=== PATIENT | male | born 1975 | race African-American/Black ===

== ENCOUNTER 2020-08-22 14:17 | Emergency (ER) | payer MEDICAID, SELFPAY ==
--- NOTE | 2020-08-22 14:15 | RT.EKG_ITS ---
APPROVED REPORT Exam: Resting ECG Reason for Exam: Chest pain Patient Location: E HR:99 bpm ECG Measurements Heart Rate 99 AXIS LA 155 P 78 QRSd 84 QRS -73 QT 361 T 59 QTc 463 Conclusion Sinus rhythm...normal P axis, V-rate 60- 99 Left anterior fascicular block...axis(240,-40), init forces inf ST elev, probable normal early repol pattern...ST elevation, age<55. Appears c/w early repol. No STEMI. I have reviewed and interpreted ECG and agree with software generated interpretation.
[2020-08-22 14:27] VITALS: BP 132/98; PULSE 90; RESP 18; TEMP 36.6; O2SAT 100
--- NOTE | 2020-08-22 14:58 | ED.GENADUL_ITS ---
Discharge Plan Disposition Patient Disposition: HOME Condition: Stable Discharge Details Clinical Impression: Chest wall mass, Rib lesion, Other incomplete lesion at T2-T6 level of thoracic spinal cord, initial encounter Primary Care Provider: Unknown,Unknown ED Provider: Tracy Vuong Home Meds and New Rx's Prescriptions: New oxycodone 5 mg tablet 5 mg PO Q8H PRNQty: 12 RF: 0 Discharge Instructions Additional Instructions: You will need follow-up with primary care doctor, for care management will establish care with primary care, and very importantly follow-up Take ibuprofen and Tylenol as needed for discomfort Take oxycodone for pain uncontrolled You may take 2.5 to 5 mg, do not every 8 hours after taking this medication You will need very close follow-up with oncology, we will put you on the referral list You will also need close follow-up with likely neurosurgery in consultation, this can be established after review with oncology and primary care doctor Please return immediately should you have any new or worsening complaints including worsening shortness of breath, uncontrolled pain, fever, chills, changes in bowel or bladder, or with any new or worsening complaints Referrals: Jair Brooks MD [ CONSULTING PHYSICIAN] - Discharge Data Discharge Date/Time-TO BE ENTERED AT DEPARTURE: 08/22/20 19:45 Medical Decision Making <INDIRA Medina - Last Filed: 08/23/20 07:57> 45-year-old gentleman, current smoker, presents for 3-week history of right- sided chest pain and shortness of breath, nothing makes it worse or better. Differential includes but not excluded to ACS, pneumonia, musculoskeletal pain, PE, COPD, less likely dissection, etc. Will give full dose aspirin and obtain a cardiac work-up. Vital signs are unremarkable. Laboratory values are unremarkable except for hemoglobin 18.0 hematocrit 54.7 D-dimer 3977. Chest x-ray read by radiology as negative for acute pathology. Patient does not have a primary care provider, will place him on the care management list to help expedite outpatient care We will give 2 mg IV morphine obtain CTA of the chest to rule out PE Medical Records Medical records narrative: No records available Imaging Data Radiologic Study: Attestation: I personally reviewed and interpreted this imaging study as follows: Imaging: X-Ray Radiologist's impression: Exam(s) XR CHEST 2V PA LATERAL EXAM: XR CHEST 2V PA LATERAL CLINICAL HISTORY: L sided chest pain TECHNIQUE: 2D digital imaging was performed. COMPARISON: No exams were available for comparison FINDINGS: MEDIASTINUM: Normal. HEART: Normal. PULMONARY VASCULATURE: Normal. LUNGS: Emphysematous changes greatest at the right lung apex. Fibrotic changes. PLEURAL SPACE: No pleural effusion or pneumothorax. BONE:Right 2nd and 3rd rib deformities.. IMPRESSION: Severe emphysematous changes. Postsurgical changes. No acute abnormality. Lab Data Lab results reviewed: Yes I reviewed the patient's lab results. Labs: Laboratory Tests Range/Units 08/22/20 08/22/20 08/22/20 15:11 15:11 15:11 WBC (4.4-10.8) 10^3/uL 7.31 RBC (4.36-5.78) 10^6/uL 5.63 Hgb (13.5-17.5) g/dL 18.0 H Hct (40.0-50.0) % 54.7 H MCV (80-95) fL 97.2 H MCH (27.0-33.0) pg 32.0 MCHC (32.0-36.0) % 32.9 RDW (11.8-14.1) % 14.1 Plt Count (130-400) 10^3/uL 251 MPV (8.0-11.0) fL 10.5 Immature Gran % 0.3 Neutrophils % 53.6 Lymphocytes % 38.0 Monocytes % 6.6 Eosinophils % 1.0 Basophils % 0.5 Nucleated RBC % % 0 Absolute Neutrophils (1.2-6.7) 10^3/uL 3.92 Absolute Lymphocytes (1.2-3.4) 10^3/uL 2.78 Absolute Monocytes (0.1-0.8) 10^3/uL 0.48 Absolute Eosinophils (0.0-0.7) 10^3/uL 0.07 Absolute Basophils (0.0-0.2) 10^3/uL 0.04 PT (9.3-11.0) sec 10.8 INR (0.9-1.1) 1.1 APTT (21.0-27.5) sec 24.9 D-Dimer (<500) ng/mlFEU 3977 H Sodium (136-145) mmol/L 139 Potassium (3.5-5.1) mmol/L 3.8 Chloride (98-107) mmol/L 103 Carbon Dioxide (21.0-32.0) mmol/L 26.5 Anion Gap (3-11) mmol/L 9.5 BUN (7-18) mg/dL 9 Creatinine (0.70-1.30) mg/dL 1.0 Estimated GFR/1.73 m2 (mL/min/1.73m2) >= 60.00 Glucose (74-106) mg/dL 86 Calcium (8.5-10.1) mg/dL 9.4 Magnesium (1.8-2.4) mg/dL 2.0 Total Bilirubin (0.2-1.0) mg/dL 0.7 AST (15-37) U/L 17 ALT (16-63) U/L 18 Alkaline Phosphatase (46-116) U/L 104 Troponin I (<0.06) ng/mL < 0.05 Total Protein (6.4-8.2) g/dL 8.6 H Albumin (3.4-5.0) g/dL 3.5 ECG Data Attestation: I personally reviewed and interpreted this ECG (s) as follows: Interpretation: Please see official report by Dr. Butterfield. Sinus rhythm, ventricular rate of 99. No STEMI <INDIRA Cameron - Last Filed: 08/22/20 21:03> Care accepted in transfer from Lenard Ortiz PA-C, CTA was ordered D-dimer was elevated over 3000, patient with chest wall mass and lytic lesions to T2 and rib 7 on right I discussed the T2 lesion with Dr. Rivera, orthopedic as it does involve the vertebral body and does not appear to be overtly unstable at this time Patient is neurologically intact I discussed the case with Dr. Jones, oncology at [facility] and she will arrange follow-up with Dr. Perez, oncology at [facility] Brina Diaz was also made aware regarding this patient and need for urgent outpatient follow-up on Tuesday Patient was given opiate analgesia for pain control He has not hypoxic or tachypneic, he is feeling symptomatic improvement at time of discharge home, I discussed the need for urgent outpatient evaluation and patient understands the need to do so Had a long discussion with patient regarding likely diagnosis and answered all questions to the best of my ability Follow CT results reviewed with patient and radiology Patient has given low threshold to return with new or worsening complaints HPI <INDIRA Medina - Last Filed: 08/23/20 07:57> General Mode of arrival: ambulatory . Date/Time Provider Initiated Documentation: 08/22/20 14:21 . Limitations to Documentation: no limitations . Information obtained by: patient . HPI Narrative: This is a 45-year-old male, smokes approximately 1 pack of cigarettes, past medical history of bilateral spontaneous pneumothorax, presents to the ER reporting 3-week history of right sided chest pain, diffuse. Nothing makes the pain worse or better. Reports shortness of breath associated with chest pain for the past week or so. He denies recent illness or trauma. He reports a mild dry cough which is baseline. He denies fever, sputum, abdominal pain, nausea vomiting, pain or swelling in his leg, back pain. Patient states this does not feel like his pneumothorax. He denies recent illness or trauma. He has taken [id number] anti- inflammatory medication with little relief. Patient reports a family pathological history that includes heart disease although he cannot tell me exactly what his mother had. Related Data Home Medications Medication Instructions Recorded Confirmed oxycodone 5 mg PO Q8H PRN #12 tab 08/22/20 Previous Rx's Medication Instructions Recorded oxycodone 5 mg PO Q8H PRN #12 tab 08/22/20 Allergies Allergy/AdvReac Type Severity Reaction Status Date / Time No Known Allergies Allergy Unverified 08/22/20 14:31 General Stated Complaint: Chest Pain CAYDEN: 3 Review of Systems <INDIRA Medina - Last Filed: 08/23/20 07:57> Constitutional Constitutional: Denies fatigue, Denies fever(s), Denies headache(s) and Denies weakness ENT Ears, Nose, Mouth, and Throat: Denies headache(s) and Reports neck pain (Pain from my neck to my ribs) Cardiovascular Cardiovascular: Reports chest pain and Reports dyspnea Respiratory Respiratory: Reports cough and Reports dyspnea Gastrointestinal Gastrointestinal: Denies abdominal pain, Denies nausea and Denies vomiting Genitourinary Genitourinary: Denies dysuria Musculoskeletal Musculoskeletal: Denies back pain, Denies numbness and Denies tingling Integumentary/Breasts Skin/Breast: Denies rash Neurologic Neurologic: Denies headache(s), Denies numbness, Denies tingling and Denies weakness Endocrine Endocrine: Denies fatigue PFSH <INDIRA Medina - Last Filed: 08/23/20 07:57> Social History Smoking/Tobacco Use Status: Current every day Tobacco Type: cigarettes Smoking risk assessment performed?: Yes Alcohol Intake: current Alcohol Intake frequency: a few times a week Drug use: Daily Substance use type: marijuana Do you feel safe at home: Yes Do you feel safe in your relationship?: Yes Exam <INDIRA Medina - Last Filed: 08/23/20 07:57> Const General: cooperative, healthy appearing, comfortable and no acute distress Orientation: alert, awake and oriented x3 HENMT Head: normal to inspection, normocephalic and atraumatic Face and sinus: normal facial exam Mouth: moist mucous membranes Eyes General: appearance normal, both eyes and all related structures Conjunctivae: conjunctivae normal Neck Neck: normal visual inspection, full ROM, trachea midline and supple Resp Effort & Inspection: normal respiratory effort and able to speak in complete sentences Auscultation: clear to auscultation bilaterally Other: Previous chest tube scars Cardio Rate: regular rate Rhythm: regular rhythm GI Palpation: soft and nontender Auscultation: normal bowel sounds Back/Spine/Pelvis Back: No back tenderness Skin General skin exam: no rashes or lesions noted Neuro General: patient alert, patient awake, moves all extremities and no focal motor deficits Cognition: normal cognition Speech: speech normal Gait: normal gait Sensory Exam: no sensory deficits noted Extrem General: normal to inspection, full ROM and capillary refill normal Psych Appearance: grossly normal Mental Status: mental status grossly normal Course <INDIRA Medina - Last Filed: 08/23/20 07:57> Vital Signs Vital signs: Vital Signs Temperature 36.6 C 08/22/20 14:27 Pulse 90 08/22/20 14:27 Respiratory Rate 18 08/22/20 14:27 Blood Pressure 132/98 H 08/22/20 14:27 Pulse Oximetry 100 08/22/20 14:27 Temperature 36.6 C 08/22/20 14:27 Temperature Source Temporal Artery Scan 08/22/20 14:27 Pulse 90 08/22/20 14:27 Respiratory Rate 18 08/22/20 14:27 Respiratory Effort 08/22/20 14:32 Blood Pressure 132/98 H 08/22/20 14:27 Blood Pressure Position Sitting 08/22/20 14:27 Pulse Oximetry 100 08/22/20 14:27 Oxygen Delivery Method Room Air 08/22/20 14:27 Oxygen Flow Rate 0 08/22/20 14:27 Pain Level 7 08/22/20 14:27 Sign Out <INDIRA Medina - Last Filed: 08/23/20 07:57> Sign Out Data: Sign Out Comment: Right sided chest pain and shortness of breath for 3 weeks. Elevated D-dimer, awaiting CTA. 2 mg morphine given Last updated by Lenard Ortiz PA at 08/22/20 16:23
[2020-08-22] MEDS: Aspirin 81 MG CHEW 324 MG CH (14:59)
[2020-08-22 15:22] LABS: Abs Immature Grans 0.02 10^3/uL (0.0-0.06); Absolute Basophil Count 0.04 10^3/uL (0.0-0.2); Absolute Eosinophil Count 0.07 10^3/uL (0.0-0.7); Absolute Lymphocyte Count 2.78 10^3/uL (1.2-3.4); Absolute Monocyte Count 0.48 10^3/uL (0.1-0.8); Absolute Neutrophil Count 3.92 10^3/uL (1.2-6.7); Basophils % 0.5; HCT 54.7 % (40.0-50.0); Immature Grans % 0.3; MCHC 32.9 % (32.0-36.0); MCV 97.2 fL (80-95); MPV 10.5 fL (8.0-11.0); Monocytes % 6.6; Neutrophils % 53.6; Nucleated RBC 0 %; Platelet Count 251 10^3/uL (130-400); RBC 5.63 10^6/uL (4.36-5.78); RDW 14.1 % (11.8-14.1); RDW-SD 50.7 fL; WBC 7.31 10^3/uL (4.4-10.8)
[2020-08-22 15:31] VITALS: RESP 20
[2020-08-22 15:37] LABS: INR 1.1 (0.9-1.1); PTT Activated 24.9 sec (21.0-27.5); Prothrombin Time 10.8 sec (9.3-11.0)
--- NOTE | 2020-08-22 15:39 | DI.RAD_ITS ---
Exam(s) XR CHEST 2V PA LATERAL EXAM: XR CHEST 2V PA LATERAL CLINICAL HISTORY: L sided chest pain TECHNIQUE: 2D digital imaging was performed. COMPARISON: No exams were available for comparison FINDINGS: MEDIASTINUM: Normal. HEART: Normal. PULMONARY VASCULATURE: Normal. LUNGS: Emphysematous changes greatest at the right lung apex. Fibrotic changes. PLEURAL SPACE: No pleural effusion or pneumothorax. BONE:Right 2nd and 3rd rib deformities.. IMPRESSION: Severe emphysematous changes. Postsurgical changes. No acute abnormality. DATA REPOSITORY: RADIATION DOSE DELIVERED:
[2020-08-22 15:40] LABS: ALT 18 U/L (16-63); AST 17 U/L (15-37); Albumin 3.5 g/dL (3.4-5.0); Alkaline Phosphatase 104 U/L (46-116); Anion Gap 9.5 mmol/L (3-11); BUN 9 mg/dL (7-18); Bilirubin, Total 0.7 mg/dL (0.2-1.0); CO2 26.5 mmol/L (21.0-32.0); Calcium 9.4 mg/dL (8.5-10.1); Chloride 103 mmol/L (98-107); Glucose 86 mg/dL (74-106); Potassium 3.8 mmol/L (3.5-5.1); Sodium 139 mmol/L (136-145); Total Protein 8.6 g/dL (6.4-8.2); Troponin I < 0.05 ng/mL (<0.06)
--- NOTE | 2020-08-22 16:00 | DI.CT_ITS ---
Exam(s) CT CHEST PE CTA EXAM: CT CHEST PE CTA CLINICAL HISTORY: chest pain with elevated ddimer, right. TECHNIQUE: Imaging Protocol: CT angiography of the chest was performed using pulmonary embolus yeimi col. Multi planar reconstructions were performed. CONTRAST MATERIAL: Intravenous: Omnipaque 350 Contrast volume: 100 cc COMPARISON: CR XR CHEST 2V PA LATERAL from 08/22/2020 CR XR CHEST 2V PA LATERAL from 08/22/2020 FINDINGS: CHEST: PULMONARY ARTERIES: There are no intraluminal filling defects to suggest acute pulmonary emboli. LUNGS: There are severe emphysematous changes in both lung quesada including multiple confluent mostly medial located bullae bilaterally. There are mild benign-appearing increased markings in the latera l aspect left lower lobe. No layering pleural effusions The main finding here is significant permeated of lytic involvement of the right 3rd rib, mostly post eriorly including a pathologic fracture in as at the level of the costotransverse junction, without o bvious lytic involvement of the ipsilateral transverse process of the vertebral body. There is signi ficant adjacent pleural thickening over the right upper lobe in this region, this extending anteriorl y and there is a large destructive partially solid partially fluid density mass in this region extend ing from the paraspinal region out and measuring approximately 9 cm wide by 4.5 cm AP by 5 cm cranioc audal. There is also contiguous significant lytic destruction of the right side and middle aspect of the T2 vertebral body, and right transverse process of T2. Also partial involvement of the medial a spect of the right 2nd rib. Also some lytic involvement of the superior right side of the T3 vertebr al body MEDIASTINUM: There is no hilar nor mediastinal adenopathy. Visualized thyroid unremarkable. CARDIAC: Heart size is upper normal. There is no pericardial effusion.Caliber of the thoracic aorta is within normal limits. There is no significant shift of the interventricular septum. PARTIALLY VISUALIZED UPPERMOST ABDOMEN: No obvious findings OSSEOUS: No significant osseous lesions.. IMPRESSION: 1. There is a large right-sided posterior chest wall mass measuring approximately 9 cm by 5 cm x 5 cm with lytic destruction the right side of the T2 vertebral body, right transverse process, and adjace nt right ribs as described above. Main considerations are for malignancy versus infection. 2. No evidence of pulmonary embolism, as per request 3. Severe emphysematous lung findings. This study 1st read by [facility]. RADIATION DOSE DELIVERED: 332.41mGy.cm Total DLP DATA REPOSITORY: All CT scans at this facility are submitted to the National Radiology Data Registry (NRDR) Dose Index Registry (DIR) with the [employer] (ACR). RADIATION OPTIMIZATION: All CT scans at this facility use at least one of these dose optimization te chniques: automated exposure control; mA and/or kV adjustment per patient size (includes targeted exa ms where dose is matched to clinical indication); or iterative reconstruction.
[2020-08-22 16:01] LABS: D-Dimer 3977 ng/mlFEU (<500)
[2020-08-22] MEDS: Omnipaque 350 MG/ML 100 ML BTL IJ (16:40)
[2020-08-22] MEDS: Normal Saline - Diluent 50 ML VIAL IV (16:40)
[2020-08-22] MEDS: Normal Saline Flush 10 ML SYR IVP ×3 (16:41→18:49)
--- NOTE | 2020-08-22 17:08 | DI.VRAD_ITS ---
PROCEDURE INFORMATION: Exam: CTA Chest With Contrast Exam date and time: 08/22/2020 4:08 PM Age: 45 years old Clinical indication: Pain; Right-sided; Patient HX: Elevated d-dimer. TECHNIQUE: Imaging protocol: Computed tomographic angiography of the chest with contrast. 3D rendering (Not supervised by radiologist): MIP and/or 3D reconstructed images were created by the technologist. Total images: 1886 Radiation optimization: All CT scans at this facility use at least one of these dose optimization techniques: automated exposure control; mA and/or kV adjustment per patient size (includes targeted exams where dose is matched to clinical indication); or iterative reconstruction. Contrast material: OMNIPAQUE 350; Contrast volume: 100 ml; Contrast route: INTRAVENOUS (IV); COMPARISON: CR XR CHEST 2V PA LATERAL 08/22/2020 3:25 PM FINDINGS: Pulmonary arteries: No main, lobar or segmental pulmonary arterial embolism. Aorta: Unremarkable. No aortic aneurysm. No aortic dissection. Lungs: There is severe centrilobular and paraseptal emphysema. Pleural spaces: Unremarkable. No pneumothorax. No pleural effusion. Heart: Unremarkable. No cardiomegaly. No pericardial effusion. Lymph nodes: Unremarkable. No enlarged lymph nodes. Bones/joints: There is lytic destruction of the right T2 vertebral body, transverse process and rib. There is lytic destruction of the right posterior 3rd rib with soft tissue component. Soft tissues: There is a heterogeneous 7.8 x 7.3 cm posterior chest wall mass. IMPRESSION: 1. Severe destruction of the right 3rd rib with soft tissue component . Right T2 vertebral body, transverse process and 2nd rib lytic lesions . Differential considerations include metastasis, infection and primary malignancy. 2. No pulmonary arterial embolism. 3. Severe emphysema. Dictated and Authenticated by: Yanet Villafana MD. Ordering:LACI Molina MD
[2020-08-22 19:04] VITALS: RESP 20
--- NOTE | 2020-08-25 09:32 | NUR.NOTE ---
Nursing Note: Patient called asking about his referral to oncology. I spoke with INDIRA Cameron and Brina Perez, Care Management. Tracy will call and talk with patient, and Brina will follow up on PCP and oncology follow up. Lin Hoffman
--- NOTE | 2020-08-25 10:43 | PDOC.ERCMPRO ---
- If Service Date Differs Date of service: 08/25/20 Time of Service: 10:43 Care Management Progress Note Myke is seen in the ED on 08/22/20 for right sided chest pain and shortness of breath. At the request of ED provider, ANOOP coordinates a referral to Demetrice Dorsey MD, [facility], on-call provider, to assist Myke in obtaining a follow up appointment and in establishing care with a PCP. ANOOP also coordinates a referral to [facility] [place] [facility] for evaluation and treatment of a chest wall mass with rib lesions.
== END 2020-08-22 19:45 | disposition home or self-care (01) ==
PROVIDERS: Physician Assistant; Emergency Provider Physician Assistant
DX: R22.2 Localized swelling, mass and lump, trunk (principal); M89.8X8 Other specified disorders of bone, other site; G95.89 Other specified diseases of spinal cord
CPT/HCPCS: 71275; 80053; 93005; 96374; 96376; 99285; 71046; 83735; 84484; 85025; 85379; 85610; 85730; 93010; 99284; J3490

== ENCOUNTER 2020-10-07 09:21 | Outpatient (CLI) | payer MEDICAID, SELFPAY ==
--- NOTE | 2020-10-07 | DI.US_ITS ---
Exam(s) US LOWER EXTREMITY VENOUS LT EXAM: US LOWER EXTREMITY VENOUS LT CLINICAL HISTORY: LT LEG EDEMA R60.0 METASTATIC RT LUNG CARCINOMA C34.91 TECHNIQUE: Left lower extremity venous ultrasound performed using grayscale, color-flow, and spectra l Doppler analysis. COMPARISON: No exams were available for comparison FINDINGS: The left common femoral, femoral and popliteal veins demonstrate normal compressibility, augmentation , and color Doppler. The posterior tibial veins are patent. There is occlusive thrombus seen in the paired peroneal veins. It measures 35 cm in length. The saphenofemoral junction is unremarkable. T here is no evidence of a Owens cyst. The soft tissues are unremarkable. IMPRESSION: 1. There is occlusive thrombus seen in the paired peroneal veins measuring 35 cm in length. DATA REPOSITORY:
--- OUTSIDE RECORDS SUMMARY | 2020-10-07 09:24 | XMS_ITS | Continuity of Care Document ---
:1975 Author Organization [facility] Address [address] [place] [address] Support Name Relationship Address Phone Shaun Barton Emergency Provider Dept. of Emergency Medic ine [facility], [address] [place] [address] [facility] Primary Care Provider [address] [place] [address] [phone] [place] [id number] Allergies, Adverse Reactions, Alerts No known allergies. Medications No medication information available. Problem List Active Problems Medical Problem Onset Date Status Chest pain Active Procedures Procedure Date Status XR chest pa & lat May 13, 2020 completed Relevant Diagnostic Tests and/or Laboratory Data Laboratory Results Test Date/Time Result Interp. Ref. Range Result Comment White Blood Count May 13, 2020 6.0 10^3/uL 4.5-10.5 12:06pm Red Blood Count May 13, 2020 4.68 10^6uL 4.20-5.40 12:06pm Hemoglobin May 13, 2020 15.1 g/dL 13.3-16.3 12:06pm Hematocrit May 13, 2020 45.9 % 40.0-49.0 12:06pm Mean Corpuscular Volume May 13, 2020 98.2 fL 80.0-100. 0 12:06pm Mean Corpuscular May 13, 2020 32.2 pg High 23.0-31.0 Hemoglobin 12:06pm Mean Corpuscular May 13, 2020 32.8 g/dL 32.0-36.0 Hemoglobin Concent 12:06pm Platelet Count May 13, 2020 219 10^3/uL 150-400 12:06pm RDW Coefficient of May 13, 2020 14.7 % 12.5-15.5 Variation 12:06pm Mean Platelet Volume May 13, 2020 9.0 fL 7.0-10.5 12:06pm Neutrophils (%) (Auto) May 13, 2020 50 % 44-74 12:06pm Lymphocytes (%) (Auto) May 13, 2020 40 % 16-46 12:06pm Monocytes (%) (Auto) May 13, 2020 7 % 5-12 12:06pm Eosinophils (%) (Auto) May 13, 2020 3 % 0-8 12:06pm Basophils (%) (Auto) May 13, 2020 0 % 0-2 12:06pm Absolute Neutrophils May 13, 2020 3.0 10^3/uL 1.5-7.8 (auto) 12:06pm Absolute Lymphocytes May 13, 2020 2.4 10^3/uL 0.85-4.1 (auto) 12:06pm Absolute Monocytes May 13, 2020 0.4 10^3/uL 0.2-1.1 (auto) 12:06pm Absolute Eosinophils May 13, 2020 0.2 10^3/uL 0.05-0.6 (auto) 12:06pm Absolute Basophils May 13, 2020 0.0 10^3/uL 0-0.2 (auto) 12:06pm Sodium Level May 13, 2020 142 mmol/L 136-145 12:06pm Potassium Level May 13, 2020 4.3 mmol/L 3.5-5.1 12:06pm Chloride Level May 13, 2020 105 mmol/L 98-107 12:06pm Carbon Dioxide Level May 13, 2020 28 mmol/L 22-29 12:06pm Anion Gap May 13, 2020 9 mmol/L 6-18 12:06pm Blood Urea Nitrogen May 13, 2020 11 mg/dL 6-20 12:06pm Creatinine May 13, 2020 0.9 mg/dL 0.7-1.2 12:06pm Glomerular Filtration May 13, 2020 > 60.00 60- Multiply x 1.212 if of descent Rate Calc 12:06pm mL/min normal kidney function >60 mL/min results normal ized to 1.73 m sq body surface area. Glucose Level May 13, 2020 101 mg/dL 74-109 12:06pm Calcium Level May 13, 2020 9.5 mg/dL 8.6-10.4 12:06pm Phosphorus Level May 13, 2020 2.8 mg/dL 2.5-4.5 12:06pm Total Bilirubin May 13, 2020 0.3 mg/dL Low 0.4-1.2 12:06pm Aspartate Amino Transf May 13, 2020 16 IU/L 10-50 (AST/SGOT) 12:06pm Alanine May 13, 2020 11 U/L 5-41 Aminotransferase 12:06pm (ALT/SGPT) Alkaline Phosphatase May 13, 2020 92 IU/L 40-129 12:06pm Total Protein May 13, 2020 7.1 g/dL 6.6-8.7 12:06pm Albumin May 13, 2020 4.0 g/dL 3.5-5.2 12:06pm Magnesium Level May 13, 2020 1.7 mg/dL 1.6-2.6 12:06pm Troponin T May 13, 2020 < 0.01 ng/mL 0.0-0.01 12:06pm Advance Directives Advance Directive Response Recorded Date/Time Date Patient Queried 05/13/20 May 13, 2020 1:00p m Does the patient have a Healthcare Proxy? No May 13, 2020 1:00pm Healthcare Proxy Status Not Interested May 13, 2020 1: 00pm Chief Complaint and Reason for Visit Encounter Admit Date Chief Complaint Reason for Visit Departed Emergency May 13, 2020 11:26am chest pain Hospital Discharge Instructions Additional Discharge Instructions Your EKG and labs we re reassuring Your chest xray showed signs from prior surgery Please follow up with Thorac ic surgery because of your pain and prior procedure: [phone] You should also follow up [facility] Cardiology- information provided Take over the counter pain m edication as packaging directs to help with your discomfort Return to the ED for any new , worsening, or concerning symptoms No Instructions/Education Provided Encounters Encounter Facility Location Admit/Visit Discharge/Departure Atte nding Date Date Provider Departed [facility] May 13, 2020 May 13, 2020 2:44pm [facility] 11:26am [facility] Department Functional Status Query Response Date Recorded Comment Patient Orientation Oriented x3 May 13, 2020 1:04pm Awake Alert Immunizations No known immunizations. Plan of Care No Known Plan of Care Information Social History Query Response Date Recorded Comment Does the patient use drugs? No May 13, 2020 1:04pm Is pt a current\former smoker or user of Yes, former May 1:04pm tobacco products? On a typical day when you drink, how many 2 May 13, 2020 1:04pm drinks do you have On average how many days per week do you 3 May 1:04pm drink alcohol? Query Response Start Date Stop Date Is pt a current\former smoker or user of tobacco Yes, former products? Vital Signs Vital Reading Result Reference Range Collection Date/ Time Height 6 ft 4 in May 13, 2020 11 :32am Weight 81.4 kg May 13, 2020 11 :32am Temperature 97.3 F 97.5 F-99.3 F May 13, 2020 11 :32am Pulse 66 BPM 60-90 May 13, 2020 2: 42pm Respiration 16 RPM 12-20 May 13, 2020 2: 42pm Pulse Oximetry 100 % 95-100 May 13, 2020 2: 42pm Blood Pressure Systolic 127 100-160 May 13, 2020 2:42pm Blood Pressure Diastolic 88 60-90 May 2:42pm
== END 2020-10-07 09:41 ==
PROVIDERS: Visit Provider Family Medicine
DX: C34.91 Malignant neoplasm of unspecified part of right bronchus or lung (principal); R60.0 Localized edema; I82.890 Acute embolism and thrombosis of other specified veins
CPT/HCPCS: 93971

== ENCOUNTER 2020-10-12 23:30 | Observation (INO) | payer MEDICAID, SELFPAY ==
[2020-10-12 23:29] VITALS: BP 125/86; PULSE 90; RESP 20; TEMP 36.4; O2SAT 99
--- NOTE | 2020-10-12 23:30 | RT.EKG_ITS ---
APPROVED REPORT Exam: Resting ECG Reason for Exam: chest pain Patient Location: E HR:90 bpm ECG Measurements Heart Rate 90 AXIS KS 145 P 73 QRSd 93 QRS -74 QT 382 T 60 QTc 466 Conclusion Sinus rhythm...normal P axis, V-rate 60- 99 Left anterior fascicular block...axis(240,-40), init forces inf Physician: Rate 90, sinus rhythm, no significant ST elevations or depressions. No evidence of STEMI. No large Q waves.
--- NOTE | 2020-10-12 23:37 | DI.CT_ITS ---
Exam(s) CT CHEST PE ABD PELVIS W EXAM: CT CHEST PE ABD PELVIS W CLINICAL HISTORY: right chest pain, known mass, has dvt's. TECHNIQUE: Imaging Protocol: Axial computed tomography images with coronal and sagittal reformatted images were created and reviewed CONTRAST MATERIAL: Intravenous: Omnipaque 350 Contrast volume:100 ml Oral: no COMPARISON: CT CT CHEST PE CTA from 08/22/2020 CR XR CHEST 2V PA LATERAL from 08/22/[address] CHEST PE CTA from 08/22/2020 FINDINGS: CHEST: Pulmonary arteries: Well opacified. No emboli seen. Mediastinum and Christen: Right hilar adenopathy, increasing when compared with the previous exam. Pulmonary parenchyma: Large right apical mass, mainly low-density with some vascularity. It measures at least 10 cm in size transversely. The mass extends inferiorly along the ribs causing invasion jv th anteriorly and posteriorly. Inferior extension approximately 25 cm. There is near complete destr uction of the right 3rd rib so significant destruction of the 4th rib. There is also a destruction o f the vertebral bodies on the right side at T2 and T3. There is now destruction of proximal portion of the left 8th rib. No longer lying emphysematous changes greater at the apices. Pleura: No effusion or pneumothorax. Aorta: Thoracic portion non-dilated. No dissection. Heart: Normal size. No pericardial effusion. ABDOMEN: Liver: Normal density. Tiny hypodensities, too small to characterize. Gallbladder and biliary tract: Gallbladder unremarkable. No radiodense calculus. Mild biliary dilat ation likely secondary to pancreatic mass. Pancreas: Mass in the head of the pancreas measuring 3.5 cm. No abnormal calcifications or inflammat ory process. Spleen: Normal. Kidneys: Normal size, contour and axis. No radiodense stones or obstructive uropathy. Multiple bilate ral low-density area is which have a somewhat irregular appearance, not typical for simple cysts. A small portion of the superior poles of the kidneys were included on the previous exam. Adrenal glands: Enlargement of the left adrenal gland. Aorta: Abdominal portion non-dilated. Lymph nodes: Within normal limits. Soft tissues: Unremarkable. PELVIS: Bladder: Symmetric distention, no gross wall thickening. Bowel: Increased stool. No obstruction or bowel wall thickening. Peritoneal cavity: No ascites, collection or mesenteric inflammatory response. Bones: Lucencies inferomedially in both billy. Reproductive organs: Within normal limits. IMPRESSION: Chest: Interval increase of large right apical tumor, with invasion into the right side of the T2 and T3 vertebral bodies as well as destruction of the 3rd rib invasion of the 4th rib. New lytic lesion of the proximal left 8th rib. No pulmonary emboli. Abdomen and pelvis: 3.5 centimeter pancreatic mass. Bilateral renal masses. Enlargement of the left adrenal gland. Questionable lucencies of the billy. RADIATION DOSE DELIVERED: 1,052.03mGy.cm Total DLP 1,052.03mGy.cm Total DLP DATA REPOSITORY: All CT scans at this facility are submitted to the National Radiology Data Registry (NRDR) Dose Index Registry (DIR) with the [employer] (ACR). RADIATION OPTIMIZATION: All CT scans at this facility use at least one of these dose optimization te chniques: automated exposure control; mA and/or kV adjustment per patient size (includes targeted exa ms where dose is matched to clinical indication); or iterative reconstruction.
[2020-10-12 23:38] VITALS: PULSE 92; RESP 39; O2SAT 100
[2020-10-12 23:40] VITALS: PULSE 90; RESP 34; O2SAT 100
--- NOTE | 2020-10-12 23:44 | W.ED.GENAD ---
Discharge Plan Disposition Patient Disposition: [facility] INPATIENT Condition: Stable Discharge Details Clinical Impression: Chest wall mass, Metastatic disease, Chest pain Primary Care Provider: Unknown,Unknown ED Provider: Erick Nicholas Home Meds and New Rx's Prescriptions: No Action oxycodone 5 mg tablet 5 mg PO Q8H PRNQty: 12 RF: 0 oxycodone 5 mg capsule 5 mg PO Q8H PRNQty: 14 RF: 0 enoxaparin [Lovenox] 80 mg/0.8 mL Syringe 80 mg subcut BID RF: 0 oxycodone-acetaminophen [Percocet] 10-325 mg Tablet 1 tab PO Q6H PRNRF: 0 morphine 60 mg Tablet Extended Release 60 mg PO Q6H PRN PRN (Reason: Pain) RF: 0 Medical Decision Making 45-year-old -[place] male with a recent diagnosis of a right chest mass just 2 months ago, who has blood clots in his lower extremities, takes daily Lovenox twice daily, presents today for new right-sided chest and abdominal pain. For last 2 to 3 days he has noticed increasing worsening pain in the right side, however it is notably increased over the last 24 hours. It hurts to breathe or move. He also admits to right-sided abdominal pain. No pain on the left. Admits to shortness of breath secondary to the pain, rather than actual shortness of breath. He denies any cough or fever. He denies missing any doses of his Lovenox. No other complaints at this time. He has not yet started chemotherapy or radiation. Exam demonstrates exquisite superficial tenderness on palpation of any aspect of the right chest, crackles diffusely on the right and left. Vital signs stable. Oxygenation good. Bedside ultrasound demonstrates reduced lung sliding bilaterally secondary to splinting. Difficult to differentiate evidence of clear pneumothorax. No evidence of tension pneumothorax clinically at this time. Suspect pain secondary to mass, but differential definitely includes potential pulmonary embolism, or rib pain secondary to mass. ACS less likely. We will treat the patient's pain, evaluate for life-threatening etiologies, monitor closely and reassess. 1:02 AM Patient's laboratory work-up is returned and is stable. EKG stable, troponin normal, proBNP shows no elevation, and no suggestion of heart strain. Lipase normal. No white count bandemia or left shift. Potassium minimally low at 3.3. Of a social note, the patient has been staying at a hotel, and has been in severe pain. Because of this pain he is actually missed his appointment at [facility] for his initial assessment that was 3 days ago. He has not had any other appointments at [facility] yet to start chemotherapy or for surgical management. Patient remains in significant pain, but it is slightly better manage when receiving notable amounts of Dilaudid. CT scan demonstrates a notable Pancoast tumor that is enlarging compared to prior exam. It has notable replacement of entire right third rib, and involvement of the right second and fourth ribs. He also invades into T2 and T3 vertebra, with spinal canal stenosis. Patient also has evidence of a pancreatic mass suspicious for malignancy, adrenal nodules, and kidney lesion and evidence of metastatic disease throughout. I do feel that the patient would benefit from admission for pain control. The patient course appears notably advanced and concerning. The patient does have a 2-year-old daughter locally here in [facility] and states she is his driving force. 1:32 AM Discussed the case with Dr. Vincent, he agrees with the assessment and plan. Patient will be admitted for pain management. Repeat exam continues to show no evidence of focal neurologic deficit, no evidence of acute clinical cord compression. I also discussed the case with the patient's significant other over the phone at his request. I did make clear to the patient that with the notable metastatic lesions that this will be a challenge to be, and may certainly also be potentially unfeasible. Patient understands. I have extensively reviewed the treatment plan with the patient. I have addressed all patient concerns at this time. I have also discussed the plan with the admitting physician and they agree with the current assessment and plan and have agreed to assume responsibility for the patient. All parties demonstrate verbal understanding and agreement with our assessment and plan at this time. The documentation in this chart was dictated using Smart[employer] dictation software. Please excuse any dictation errors. EKG 23: 48 Rate 90, sinus rhythm, no significant ST elevations or depressions. No evidence of STEMI. No large Q waves. FINDINGS: Pulmonary arteries: Normal. No pulmonary emboli. Aorta: Unremarkable. No aortic aneurysm. No aortic dissection. Lungs: A large mass is again noted at the right thoracic apex posteriorly. Tumor replaces and expands the entire right 3rd rib, extending into the anterior chest. Tumor involves the right 2nd and 4th ribs, and also invades into the T2 and T3 vertebrae. The principal posterior tumor is approximately 10 cm diameter, however with extension along the entire 3rd rib the tumor extension is closer to 25 cm. Moderate centrilobular and paraseptal emphysema is noted. Negative for significant consolidation or ground-glass opacity. Pleural spaces: Unremarkable. No pneumothorax. No pleural effusion. Heart: Unremarkable. No cardiomegaly. No pericardial effusion. Lymph nodes: Right hilar lymphadenopathy has enlarged from previous. Bones/joints: Negative for compression fracture. Negative for anterior or posterior translation of vertebral bodies. Expansile destructive tumor is noted at the posterior left 8th rib, 2.1 x 3.5 x 3.1 cm. This site neoplasm is new from August 2020. Tumor encroachment and severe narrowing of the spinal canal suspected at the T2 and T3 levels. Soft tissues: Large right chest wall/rib/lung mass again noted. Moderate gynecomastia noted. IMPRESSION: 1. Negative for pulmonary embolism. 2. Negative for aortic dissection. 3. Negative for superior vena cava occlusion. 4. Limited evaluation of the right subclavian vein. 5. Enlargement of a large right Pancoast tumor. 6. Tumor invasion of the spinal canal at T2 and T3, with severe spinal canal stenosis suspected. 7. New expansile tumor at the posterior left 8th rib. 8. Enlargement of right hilar lymph nodes. FINDINGS: Liver: Normal liver attenuation. Negative for suspicious liver mass. Gallbladder and bile ducts: Contracted gallbladder. Pancreas: Irregular low-attenuation mass noted at the pancreatic head, 3.4 cm. Negative for inflammatory changes around the pancreas. Spleen: Normal. No splenomegaly. Adrenal glands: Left adrenal nodule 1.7 cm. Normal right adrenal. Kidneys and ureters: Multiple low-attenuation lesions are noted in the kidneys. Lesions at the superior poles are new from the August 2020 exam. A lesion at the left superior pole measures 1.4 cm. Kidneys are negative for hydronephrosis. Ureters are not dilated. Stomach and bowel: Stomach is unremarkable. Small bowel is not dilated. Negative for inflammatory changes around the colon. Appendix: Normal appendix. Intraperitoneal space: Negative for free fluid or free air. Negative for abscess. Vasculature: Abdominal aorta is negative for aneurysm. There is no significant vascular calcification. Lymph nodes: Unremarkable. No enlarged lymph nodes. Urinary bladder: Unremarkable as visualized. Reproductive: Unremarkable as visualized. Bones/joints: Negative for compression fracture in the lumbar spine. Negative for destructive or erosive lesions in the lumbar spine, sacrum, or pelvis. Small lucent lesions are noted in the iliac crest bilaterally. Soft tissues: Negative for abdominal wall hernia or fluid collection. Foci of air are noted in the subcutaneous tissues, left of the umbilicus. Question medication administration at this site. IMPRESSION: 1. Negative for bowel obstruction or acute inflammatory abnormality. 2. Pancreatic mass suspicious for malignancy. 3. Left adrenal nodule suspicious for malignancy. 4. New bilateral kidney lesions suspicious for metastatic disease. 5. Small lucent lesions in the iliac crests, indeterminate for metastatic disease. Thank you for allowing us to participate in the care of your patient. Dictated and Authenticated by: Taras Mar MD 10/13/2020 1:03 AM Eastern Time ([place] & [place]) HPI General Date/Time Provider Initiated Documentation: 10/12/20 23:43. HPI Narrative: 45-year-old -Bul[place] male with a recent diagnosis of a right chest mass just 2 months ago, who has blood clots in his lower extremities, takes daily Lovenox twice daily, presents today for new right-sided chest and abdominal pain. For last 2 to 3 days he has noticed increasing worsening pain in the right side, however it is notably increased over the last 24 hours. It hurts to breathe or move. He also admits to right-sided abdominal pain. No pain on the left. Admits to shortness of breath secondary to the pain, rather than actual shortness of breath. He denies any cough or fever. He denies missing any doses of his Lovenox. No other complaints at this time. He has not yet started chemotherapy or radiation. Related Data Home Medications Medication Instructions Recorded Confirmed oxycodone 5 mg PO Q8H PRN #12 tab 08/22/20 oxycodone 5 mg PO Q8H PRN #14 cap 08/25/20 enoxaparin [Lovenox] 80 mg SUBCUT BID 10/12/20 10/12/20 morphine 60 mg PO Q6H PRN PRN 10/12/20 10/12/20 oxycodone-acetaminophen [Percocet] 1 tab PO Q6H PRN 10/12/20 10/12/20 Previous Rx's Medication Instructions Recorded oxycodone 5 mg PO Q8H PRN #12 tab 08/22/20 oxycodone 5 mg PO Q8H PRN #14 cap 08/25/20 Allergies Allergy/AdvReac Type Severity Reaction Status Date / Time No Known Allergies Allergy Unverified 10/12/20 23:37 General Stated Complaint: Abd Prob CAYDEN: 2 Review of Systems All systems reviewed & are unremarkable except as noted in HPI and below PFSH Social History Smoking/Tobacco Use Status: Former Tobacco Use Quit Date: 10/10/20 Smoking risk assessment performed?: Yes Alcohol Intake: former Drug use: Daily Substance use type: marijuana Do you feel safe at home: Yes Do you feel safe in your relationship?: Yes Exam Narrative Exam Narrative: 1.Const: Well-nourished, Well-developed, appearing stated age 2.Eyes: PERRL, no conjunctival injection, and symmetrical lids. 3.ENT: Atraumatic external nose and ears. Moist MM. Neck: Symmetric, trachea midline, No thyromegaly. 4.CVS: +S1/S2, No murmurs or gallops. Peripheral pulses 2+ and equal in all extremities. Brisk capillary refill in all extremities. 5.RESP: Equal breath sounds bilaterally, no wheezes. Minimal scattered crackles. Exquisite pain out of proportion with light touch to the skin on the right side of the chest. Trachea is midline, good bilateral chest rise. 6.GI: Soft, voluntary guarding, tenderness in the right upper and right mid abdominal quadrants. No pain in the left abdomen. No genital or testicular tenderness. 7.MSK: Normocephalic/Atraumatic, Extremities w/o deformity or ttp No cyanosis or clubbing, Normal movement of all extremities. No significant pitting edema in the lower extremities. 8.Skin: Warm, Dry. No rashes or lesions. 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 Sensation grossly intact, no focal neurologic deficits. 10.Psych: (AAO) x3. Appropriate mood and affect Course Vital Signs Vital signs: Vital Signs Temperature 36.4 C L 10/12/20 23:29 Pulse 90 10/12/20 23:29 Respiratory Rate 20 10/12/20 23:29 Blood Pressure 125/86 10/12/20 23:29 Pulse Oximetry 99 10/12/20 23:29 Temperature 36.4 C L 10/12/20 23:29 Temperature Source Temporal Artery Scan 10/12/20 23:29 Pulse 90 10/12/20 23:29 Respiratory Rate 20 10/12/20 23:29 Respiratory Effort Non-Labored 10/12/20 23:35 Blood Pressure 125/86 10/12/20 23:29 Blood Pressure Position Supine 10/12/20 23:29 Pulse Oximetry 99 10/12/20 23:29 Oxygen Delivery Method Room Air 10/12/20 23:29 Oxygen Flow Rate 0 10/12/20 23:29 Pain Level 10 10/12/20 23:29
[2020-10-12 23:45] LABS: Abs Immature Grans 0.02 10^3/uL (0.0-0.06); Absolute Basophil Count 0.02 10^3/uL (0.0-0.2); Absolute Eosinophil Count 0.05 10^3/uL (0.0-0.7); Absolute Lymphocyte Count 4.04 10^3/uL (1.2-3.4); Absolute Neutrophil Count 3.83 10^3/uL (1.2-6.7); Basophils % 0.2; Eosinophils % 0.6; HCT 46.7 % (40.0-50.0); HGB 15.5 g/dL (13.5-17.5); Immature Grans % 0.2; Lymphocytes % 47.2; MCH 30.3 pg (27.0-33.0); MCHC 33.2 % (32.0-36.0); MCV 91.2 fL (80-95); MPV 10.5 fL (8.0-11.0); Neutrophils % 44.8; Nucleated RBC 0 %; Platelet Count 241 10^3/uL (130-400); RBC 5.12 10^6/uL (4.36-5.78); RDW 12.9 % (11.8-14.1); RDW-SD 43.4 fL; WBC 8.56 10^3/uL (4.4-10.8)
[2020-10-12 23:50] VITALS: PULSE 90; RESP 17; O2SAT 98
[2020-10-12 23:59] LABS: INR 1.1 (0.9-1.1); PTT Activated 27.4 sec (21.0-27.5); Prothrombin Time 10.7 sec (9.3-11.0)
[2020-10-12] MEDS: HYDROmorphone 2 MG/ML VIAL 1 MG IVP (23:59)
[2020-10-13] VITALS (32 sets, daily range): BP systolic 103–135; BP diastolic 70–114; PULSE 78–98; RESP 8–27; TEMP 36.5–36.7; O2SAT 90–100
[2020-10-13 00:07] LABS: ALT 43 U/L (16-63); AST 30 U/L (15-37); Alkaline Phosphatase 119 U/L (46-116); Anion Gap 9.4 mmol/L (3-11); BUN 15 mg/dL (7-18); Bilirubin, Total 0.4 mg/dL (0.2-1.0); CO2 26.6 mmol/L (21.0-32.0); Chloride 100 mmol/L (98-107); Glucose 103 mg/dL (74-106); Lipase 49 U/L (73-393); NT-proBNP 41 pg/mL (<300); Potassium 3.3 mmol/L (3.5-5.1); Sodium 136 mmol/L (136-145); Total Protein 7.9 g/dL (6.4-8.2); Troponin I < 0.05 ng/mL (<0.06)
[2020-10-13] MEDS: Omnipaque 350 MG/ML 100 ML BTL IJ (00:31)
[2020-10-13] MEDS: Normal Saline Flush 10 ML SYR IVP ×6 (00:32→23:00)
[2020-10-13] MEDS: Normal Saline 1,000 ML 1000 ML IV (00:40)
--- NOTE | 2020-10-13 01:03 | DI.VRAD_ITS ---
PROCEDURE INFORMATION: Exam: CTA Chest With Contrast Exam date and time: 10/12/2020 11:46 PM Age: 45 years old Clinical indication: Right-sided; Abdominal pain; Generalized; Prior surgery; Surgery date: 6+ months; Surgery type: Lung surgery; Patient HX: Known right lung cancer, diffuse right cp and abd. Right chest pain, known mass, has dvt's, right arm and neck pain TECHNIQUE: Imaging protocol: Computed tomographic angiography of the chest with contrast. 3D rendering (Not supervised by radiologist): MIP and/or 3D reconstructed images were created by the technologist. Radiation optimization: All CT scans at this facility use at least one of these dose optimization techniques: automated exposure control; mA and/or kV adjustment per patient size (includes targeted exams where dose is matched to clinical indication); or iterative reconstruction. Contrast material: OMNIPAQUE 350; Contrast volume: 100 ml; Contrast route: INTRAVENOUS (IV); COMPARISON: CT CHEST PE CTA 08/22/2020 4:30 PM FINDINGS: Pulmonary arteries: Normal. No pulmonary emboli. Aorta: Unremarkable. No aortic aneurysm. No aortic dissection. Lungs: A large mass is again noted at the right thoracic apex posteriorly. Tumor replaces and expands the entire right 3rd rib, extending into the anterior chest. Tumor involves the right 2nd and 4th ribs, and also invades into the T2 and T3 vertebrae. The principal posterior tumor is approximately 10 cm diameter, however with extension along the entire 3rd rib the tumor extension is closer to 25 cm. Moderate centrilobular and paraseptal emphysema is noted. Negative for significant consolidation or ground-glass opacity. Pleural spaces: Unremarkable. No pneumothorax. No pleural effusion. Heart: Unremarkable. No cardiomegaly. No pericardial effusion. Lymph nodes: Right hilar lymphadenopathy has enlarged from previous. Bones/joints: Negative for compression fracture. Negative for anterior or posterior translation of vertebral bodies. Expansile destructive tumor is noted at the posterior left 8th rib, 2.1 x 3.5 x 3.1 cm. This site neoplasm is new from August 2020. Tumor encroachment and severe narrowing of the spinal canal suspected at the T2 and T3 levels. Soft tissues: Large right chest wall/rib/lung mass again noted. Moderate gynecomastia noted. IMPRESSION: 1. Negative for pulmonary embolism. 2. Negative for aortic dissection. 3. Negative for superior vena cava occlusion. 4. Limited evaluation of the right subclavian vein. 5. Enlargement of a large right Pancoast tumor. 6. Tumor invasion of the spinal canal at T2 and T3, with severe spinal canal stenosis suspected. 7. New expansile tumor at the posterior left 8th rib. 8. Enlargement of right hilar lymph nodes. PROCEDURE INFORMATION: Exam: CT Abdomen And Pelvis With Contrast Exam date and time: 10/12/2020 11:46 PM Age: 45 years old Clinical indication: Right-sided; Abdominal pain; Generalized; Prior surgery; Surgery date: 6+ months; Surgery type: Lung surgery; Patient HX: Known right lung cancer, diffuse right cp and abd. Right chest pain, known mass, has dvt's, right arm and neck pain TECHNIQUE: Imaging protocol: Computed tomography of the abdomen and pelvis with contrast. 3D rendering (Not supervised by radiologist): MIP and/or 3D reconstructed images were created by the technologist. Radiation optimization: All CT scans at this facility use at least one of these dose optimization techniques: automated exposure control; mA and/or kV adjustment per patient size (includes targeted exams where dose is matched to clinical indication); or iterative reconstruction. Contrast material: OMNIPAQUE 350; Contrast volume: 100 ml; Contrast route: INTRAVENOUS (IV); COMPARISON: CT CHEST PE CTA 08/22/2020 4:30 PM FINDINGS: Liver: Normal liver attenuation. Negative for suspicious liver mass. Gallbladder and bile ducts: Contracted gallbladder. Pancreas: Irregular low-attenuation mass noted at the pancreatic head, 3.4 cm. Negative for inflammatory changes around the pancreas. Spleen: Normal. No splenomegaly. Adrenal glands: Left adrenal nodule 1.7 cm. Normal right adrenal. Kidneys and ureters: Multiple low-attenuation lesions are noted in the kidneys. Lesions at the superior poles are new from the August 2020 exam. A lesion at the left superior pole measures 1.4 cm. Kidneys are negative for hydronephrosis. Ureters are not dilated. Stomach and bowel: Stomach is unremarkable. Small bowel is not dilated. Negative for inflammatory changes around the colon. Appendix: Normal appendix. Intraperitoneal space: Negative for free fluid or free air. Negative for abscess. Vasculature: Abdominal aorta is negative for aneurysm. There is no significant vascular calcification. Lymph nodes: Unremarkable. No enlarged lymph nodes. Urinary bladder: Unremarkable as visualized. Reproductive: Unremarkable as visualized. Bones/joints: Negative for compression fracture in the lumbar spine. Negative for destructive or erosive lesions in the lumbar spine, sacrum, or pelvis. Small lucent lesions are noted in the iliac crest bilaterally. Soft tissues: Negative for abdominal wall hernia or fluid collection. Foci of air are noted in the subcutaneous tissues, left of the umbilicus. Question medication administration at this site. IMPRESSION: 1. Negative for bowel obstruction or acute inflammatory abnormality. 2. Pancreatic mass suspicious for malignancy. 3. Left adrenal nodule suspicious for malignancy. 4. New bilateral kidney lesions suspicious for metastatic disease. 5. Small lucent lesions in the iliac crests, indeterminate for metastatic disease. Dictated and Authenticated by: Taras Mar MD. Ordering:SANYA Suarez MD
[2020-10-13] MEDS: HYDROmorphone 2 MG/ML VIAL 1 MG IVP (01:20)
--- NOTE | 2020-10-13 01:41 | W.PM.HP.N ---
Date of service: 10/13/20 Time of Service: 01:41 Assessment and Plan Assessment and plan (1) Lung cancer: Status: Chronic Assessment and plan: Lung cancer with widely metastatic disease. Will begin stepped up pain management program and expedite visit with Oncology. For now will begin Duragesic with prn Dilaudid. History of Present Illness History of Present Illness Chief Complaint: CP Narrative: 45 male with recently diagnosed lung cancer, has yet to see Oncology, here with increasingly severe chest pain not managed by outpatient regimen of prn Oxycodone or Morphine. Pain is right sided, with involvement of shoulder and is exacerbated by cough or deep breathing. In ER evaluation of note for CT showing large Pancoast tumor on right with destruction of adjacent ribs as well as metastatic lesions to spine, pancreas, left adrenal and kidneys. Thoracic spinal stenosis is suspected, note that patient denies weakness or sensory loss in lower extremities, and no change bowel or bladder. In ER patient has received Dilaudid 1 mg IV x two with good relief. He is admitted for further management. Review of Systems All systems reviewed & are unremarkable except as noted in HPI and below PFSH Social History Smoking/Tobacco Use Status: Former Tobacco Use Quit Date: 10/10/20 Smoking risk assessment performed?: Yes Alcohol Intake: former Drug use: Daily Substance use type: marijuana Do you feel safe at home: Yes Do you feel safe in your relationship?: Yes Meds Allergies and Home Medications Allergies Allergy/AdvReac Type Severity Reaction Status Date / Time No Known Allergies Allergy Unverified 10/12/20 23:37 Home Medications Medication Instructions Recorded Confirmed Type oxycodone 5 mg PO Q8H PRN #12 tab 08/22/20 Rx oxycodone 5 mg PO Q8H PRN #14 cap 08/25/20 Rx enoxaparin [Lovenox] 80 mg SUBCUT BID 10/12/20 10/12/20 History morphine 60 mg PO Q6H PRN PRN 10/12/20 10/12/20 History oxycodone-acetaminophen [Percocet] 1 tab PO Q6H PRN 10/12/20 10/12/20 History Exam Narrative Exam Narrative: 103/85, 89, 36.5, 20, 100% RA. HEENT atraumatic, no ptosis noted; neck supple; lungs decreased sounds RUL; heart RRR; abdomen soft and NT; extremities w/o edema, neuro Ox3, lucid, moves all 4s equally Results Labs Result diagrams: 10/12/20 23:38 10/12/20 23:38 Labs: Laboratory Results - last 24 hr 10/12/20 10/12/20 10/12/20 23:38 23:38 23:38 WBC 8.56 RBC 5.12 Hgb 15.5 Hct 46.7 MCV 91.2 MCH 30.3 MCHC 33.2 RDW 12.9 Plt Count 241 MPV 10.5 Immature Gran % 0.2 Neutrophils % 44.8 Lymphocytes % 47.2 Monocytes % 7.0 Eosinophils % 0.6 Basophils % 0.2 Nucleated RBC % 0 Absolute Neutrophils 3.83 Absolute Lymphocytes 4.04 H Absolute Monocytes 0.60 Absolute Eosinophils 0.05 Absolute Basophils 0.02 PT 10.7 INR 1.1 APTT 27.4 Sodium 136 Potassium 3.3 L Chloride 100 Carbon Dioxide 26.6 Anion Gap 9.4 BUN 15 Creatinine 1.0 Estimated GFR/1.73 m2 >= 60.00 Glucose 103 Calcium 9.0 Total Bilirubin 0.4 AST 30 ALT 43 Alkaline Phosphatase 119 H Troponin I < 0.05 NT-Pro-B Natriuret Pep 41 Total Protein 7.9 Albumin 3.0 L Lipase 49 Last Vital Signs Temp 36.4 C L 10/12/20 23:29 Pulse 89 10/13/20 00:31 Resp 20 10/13/20 00:31 BP 103/85 10/13/20 00:31 Pulse Ox 100 10/13/20 00:25
[2020-10-13 02:06] LABS: Source Nasal/Nares
[2020-10-13] MEDS: fentaNYL 25 MCG PATCH TD ×3 (03:45→11:52)
[2020-10-13] MEDS: HYDROmorphone 2 MG/ML VIAL IVP ×5 (04:17→23:00)
[2020-10-13] MEDS: Acetaminophen 325 MG TAB 650 MG PO (08:22)
[2020-10-13] MEDS: Enoxaparin 80 MG/0.8 ML SYR SC ×2 (08:22→19:56)
[2020-10-13 08:49] LABS: Troponin I < 0.05 ng/mL (<0.06)
--- NOTE | 2020-10-13 09:19 | DSE_ITS ---
Date of service: 10/14/20 Time of Service: 11:09 DS: Diagnosis Discharge Diagnosis (1) Lung cancer: Status: Chronic Discharge Plan Disposition Patient Disposition: HOME Condition: Stable Discharge Details Reason For Visit: Lung Cancer Admit Date/Time: 10/13/20 01:54 Admit Provider: Lawrence Vincent Attending Provider: Lawrence Vincent Primary Care Provider: Unknown,Unknown Hospital Course Hospital Course: This is a 45-year-old -[place]er male with a recent diagnosis of a right chest mass just 2 months ago, who has blood clots in his lower extremities, takes daily Lovenox twice daily, presented to the ED for new right-sided chest and abdominal pain. For last 2 to 3 days he has noticed increasing worsening pain in the right side, however it is notably increased over the last 24 hours. It hurt to breathe or move. His work up in the ED included labs and a CT scan which did show a notable Pancoast tumor that is enlarging compared to prior exam. It has notable replacement of entire right third rib, and involvement of the right second and fourth ribs. He also invades into T2 and T3 vertebra, with spinal canal stenosis. Patient also has evidence of a pancreatic mass suspicious for malignancy, adrenal nodules, and kidney lesion and evidence of metastatic disease throughout. His labs essentially unremarkable. He was pre viously taking morphine 60 mg PO BID with oxycodone for breakthrough pain. As he was not getting relief from this regimen it was decided to trial a fentanyl patch and with pharmacy recommendations based on usage, he was started on 50 mcg fentanyl patch. He did get better pain control with this regimen. He will continue to use oxycodone and outpatient team can increase fentanyl as needed. he was also given a small supply of ativan to use for symptoms control. He has been started on bowel regimen and advised to monitor it closely. I also discussed the safe use of narcotics and provided narcan for use if needed. He verbalizes understanding. He has some scheduled appointments coming up that he was advised to keep as he should have evaluation mirella. discharge discussed with Dr Murillo Home Meds and New Rx's Prescriptions: New Acetaminophen [Tylenol] 650 mg PO Q4H PRN PRNQty: 0 RF: 0 docusate sodium [Colace] 100 mg Capsule 100 mg PO BID Qty: 60 RF: 0 fentanyl 50 mcg/hr Patch 72 Hour 50 mcg transdermal Q72H Qty: 5 RF: 0 polyethylene glycol 3350 17 gram Powder In Packet 17 g PO BID PRN PRNQty: 0 RF: 0 lorazepam 0.5 mg Tablet 0.5 mg PO QID PRN PRNQty: 10 RF: 0 Narcan 4 mg/actuation spray,non-aerosol 4 mg intranasal Q2M PRNQty: 2 RF: 0 Continued enoxaparin [Lovenox] 80 mg/0.8 mL Syringe 80 mg subcut BID RF: 0 oxycodone 5 mg tablet 5 mg PO Q8H PRNQty: 20 RF: 0 Discontinued oxycodone 5 mg capsule 5 mg PO Q8H PRNQty: 14 RF: 0 oxycodone-acetaminophen [Percocet] 10-325 mg Tablet 1 tab PO Q6H PRNRF: 0 morphine 60 mg Tablet Extended Release 60 mg PO Q6H PRN PRN (Reason: Pain) RF: 0 Discharge Instructions Instructions: Pain Management (DC), Opioid Safety (DC) Additional Instructions: take medication only as prescribed. can add acetaminophen 650 mg every 4 hours if needed. can also add ibuprofen 600 mg 4 times daily, take with food. eat a well balanced diet to stay well nourished. drink 6-8 glasses of water daily to stay hydrated and to help avoid constipation. you are at increased risk for severe constipation d/t narcotic use. increase fiber in you diet and take over the counter laxatives as needed. Keep all your scheduled follow up appointments. MRI on Oct 21, 2020 Oncology at [facility] on Oct 23, 2020 at 11 am on Primary care provider on Oct 24, 2020 call your primary care provider sooner for new or worsening symptoms. Stand Alone Forms: Nursing Discharge Form Referrals: Myles Soriano MD [ [facility] STAFF PHYSICIAN] - 10/24/20 10:30 am Activity:: Activity as Tolerated Equipment/Supplies:: No Equipment Needed Diet:: As Tolerated Discharge Orders Discharge Orders: Discharge Order (Routine); Ordered 10/14/20 Ordered By: Dara Walter Discharge Data Discharge Date/Time-TO BE ENTERED AT DEPARTURE: 10/14/20 12:30 DS: Summary Time Spent with Patient providing and/or coordinating discharge services: Less than 30 minutes Status at Discharge Functional status at discharge: independent ambulation Overall status at discharge: patient is progressing back to baseline Mental Status: mental status grossly normal Speech and Movement: speech and movement normal Mood: congruent mood Affect: normal affect Exam Const General: cooperative, no acute distress and frail appearing Nutritional Appearance: thin HENMT Head: normal to inspection, normocephalic and atraumatic Mouth: oral mucosae normal Resp Effort & Inspection: normal respiratory effort Cardio Rate: regular rate Rhythm: regular rhythm GI Inspection: normal to inspection Palpation: soft Auscultation: normal bowel sounds Skin General skin exam: no rashes or lesions noted Neuro General: patient alert, patient awake, patient oriented x3 and no focal motor deficits Extrem General: normal to inspection, full ROM and no pedal edema Psych Appearance: grossly normal Mental Status: mental status grossly normal Speech and Movement: speech and movement normal Mood: congruent mood Affect: normal affect Attitude: cooperative Thought Process: normal Thought Content: normal Insight: insight good Judgment: judgment good DS: Data Vitals/I&O Vitals and I&O: Vital Signs Temperature 36.6 C 10/13/20 07:48 Temperature Source Tympanic 10/13/20 07:48 Pulse 84 10/13/20 07:48 Pulse Rhythm Regular 10/13/20 09:10 Pulse 87 10/13/20 02:46 Respiratory Rate 18 10/13/20 07:48 Respiratory Effort 10/13/20 09:10 Respiratory Depth Normal 10/13/20 09:10 Respiratory Pattern Normal 10/13/20 09:10 Blood Pressure 121/82 10/13/20 07:48 Blood Pressure Mean 95 10/13/20 02:46 Blood Pressure Position Supine 10/12/20 23:29 Pulse Oximetry 99 10/13/20 07:48 Oxygen Delivery Method Room Air 10/13/20 07:48 Oxygen Flow Rate 0 10/13/20 07:48 Pain Level 9 10/13/20 08:23 Intake & Output 10/12/20 10/12/20 10/13/20 11:59 23:59 11:59 Intake Total 1000 / 1000 Balance 1000 / 1000 Weight 73.7 kg Intake: IV 1000 / 1000 Other: Urine Appearance Clear Data Completed and Pending Labs on day of discharge: Labs from last 24 hours 10/13/20 10/13/20 10/12/20 08:26 02:00 23:38 WBC RBC Hgb Hct MCV MCH MCHC RDW Plt Count MPV Immature Gran % Neutrophils % Lymphocytes % Monocytes % Eosinophils % Basophils % Nucleated RBC % Absolute Neutrophils Absolute Lymphocytes Absolute Monocytes Absolute Eosinophils Absolute Basophils PT 10.7 INR 1.1 APTT 27.4 Sodium Potassium Chloride Carbon Dioxide Anion Gap BUN Creatinine Estimated GFR/1.73 m2 Glucose Calcium Total Bilirubin AST ALT Alkaline Phosphatase Troponin I < 0.05 NT-Pro-B Natriuret Pep Total Protein Albumin Lipase COVID-19 Source Nasal/Nares SARS-CoV-2 (PCR) Pending 10/12/20 10/12/20 23:38 23:38 WBC 8.56 RBC 5.12 Hgb 15.5 Hct 46.7 MCV 91.2 MCH 30.3 MCHC 33.2 RDW 12.9 Plt Count 241 MPV 10.5 Immature Gran % 0.2 Neutrophils % 44.8 Lymphocytes % 47.2 Monocytes % 7.0 Eosinophils % 0.6 Basophils % 0.2 Nucleated RBC % 0 Absolute Neutrophils 3.83 Absolute Lymphocytes 4.04 H Absolute Monocytes 0.60 Absolute Eosinophils 0.05 Absolute Basophils 0.02 PT INR APTT Sodium 136 Potassium 3.3 L Chloride 100 Carbon Dioxide 26.6 Anion Gap 9.4 BUN 15 Creatinine 1.0 Estimated GFR/1.73 m2 >= 60.00 Glucose 103 Calcium 9.0 Total Bilirubin 0.4 AST 30 ALT 43 Alkaline Phosphatase 119 H Troponin I < 0.05 NT-Pro-B Natriuret Pep 41 Total Protein 7.9 Albumin 3.0 L Lipase 49 COVID-19 Source SARS-CoV-2 (PCR) [facility] Social History Smoking/Tobacco Use Status: Former Tobacco Use Quit Date: 10/10/20 Smoking risk assessment performed?: Yes Alcohol Intake: former Drug use: Daily Substance use type: marijuana Do you feel safe at home: Yes Do you feel safe in your relationship?: Yes
[2020-10-13 10:12] LABS: COVID-19 PCR Negative (Negative)
[2020-10-13] MEDS: Docusate Sodium 100 MG CAP PO ×2 (12:36→19:55)
[2020-10-13] MEDS: LORazepam 0.5 MG TAB PO (17:17)
[2020-10-13] MEDS: fentaNYL 100 MCG/2 ML VIAL 50 MCG IVP (19:57)
[2020-10-13] MEDS: Melatonin 3 MG TAB 6 MG PO (22:59)
[2020-10-13] MEDS: Zolpidem 5 MG TAB PO (22:59)
[2020-10-14 00:06] VITALS: BP 120/86; PULSE 82; RESP 18; TEMP 35.8; O2SAT 95
[2020-10-14] MEDS: LORazepam 0.5 MG TAB PO ×2 (02:50→12:18)
[2020-10-14] MEDS: fentaNYL 100 MCG/2 ML VIAL 50 MCG IVP (02:50)
[2020-10-14] MEDS: Normal Saline Flush 10 ML SYR IVP ×2 (02:51→10:21)
[2020-10-14 07:35] VITALS: BP 122/86; PULSE 86; RESP 18; TEMP 36.5; O2SAT 96
--- NOTE | 2020-10-14 09:26 | PCNE_ITS ---
Date of service: 10/14/20 Time of Service: 07:27 History of Present Illness History of Present Illness Chief Complaint: Patient has metastatic probable lung cancer and is in e xcruciating pain Narrative: From H and P: History of Present Illness Chief Complaint: CP Narrative: 45 male with recently diagnosed lung cancer, has yet to see Oncology, here with increasingly severe chest pain not managed by outpatient regimen of prn Oxycodone or Morphine. Pain is right sided, with involvement of shoulder and is exacerbated by cough or deep breathing. In ER evaluation of note for CT showing large Pancoast tumor on right with destruction of adjacent ribs as well as metastatic lesions to spine, pancreas, left adrenal and kidneys. Thoracic spinal stenosis is suspected, note that patient denies weakness or sensory loss in lower extremities, and no change bowel or bladder. In ER patient has received Dilaudid 1 mg IV x two with good relief. He is admitted for further management. Interim hx: Myke is a 45-year-old man who was recently diagnosed with metastatic lung disease. He is homeless. He lives at the [facility]. He would very much like to be closer to his daughter who lives in the [facility]. He states that he is impatient to get into treatment for his lung cancer. His pain is better controlled. Consults Consult date: 10/14/20 Requesting physician: Azra Granados Assessment and Plan Assessment and plan (1) Lung cancer: Status: Chronic (2) Other incomplete lesion at T2-T6 level of thoracic spinal cord, initial encounter: Status: Acute (3) Palliative care patient: Status: Acute Assessment and plan: Patient is a 45-year-old man with what looks like widespread metastatic lung cancer. He is upset because he does not know any treatment plan etc. His pain is much better controlled than what it was initially. I will come back this afternoon to discuss CODE STATUS. Addendum I did come back but he had already been discharged. His pain needs were under good control. He does have follow-up over the next few days at [facility] for more imaging and further testing. After he has met with [facility] I would be happy to see Myke again so that we can discuss goals of care and CODE STATUS. Review of Systems Narrative: Cayetano has the having a hard time sleeping. He has lost about 50 pounds in the last 2 months. He is depressed about the future. He has chest pain and shortness of breath but it is improving. He does not feel much like eating. COUNTS INCLUDE 234 BEDS AT THE [facility] Social History Smoking/Tobacco Use Status: Former Tobacco Use Quit Date: 10/10/20 Smoking risk assessment performed?: Yes Alcohol Intake: former Drug use: Daily Substance use type: marijuana Do you feel safe at home: Yes Do you feel safe in your relationship?: Yes Exam Narrative Exam Narrative: Thin man in, forceful but cooperative. His heart is regular. His lungs have wheezing and some rales especially in the bases on the left side. His abdomen is nontender. He does not have any edema. He is alert and oriented x3, he looks a bit tentative CT Scan OMPARISON: CT CT CHEST PE CTA from 08/22/2020 CR XR CHEST 2V PA LATERAL from 08/22/[address] CHEST PE CTA from 08/22/2020 FINDINGS: CHEST: Pulmonary arteries: Well opacified. No emboli seen. Mediastinum and Christen: Right hilar adenopathy, increasing when compared with the previous exam. Pulmonary parenchyma: Large right apical mass, mainly low-density with some vascularity. It measures at least 10 cm in size transversely. The mass extends inferiorly along the ribs causing invasion both anteriorly and posteriorly. Inferior extension approximately 25 cm. There is near complete destruction of t he right 3rd rib so significant destruction of the 4th rib. There is also a destruction of the vertebral bodies on the right side at T2 and T3. There is now destruction of proximal portion of the left 8th rib. No longer lying emphysematous changes greater at the apices. Pleura: No effusion or pneumothorax. Aorta: Thoracic portion non-dilated. No dissection. Heart: Normal size. No pericardial effusion. ABDOMEN: Liver: Normal density. Tiny hypodensities, too small to characterize. Gallbladder and biliary tract: Gallbladder unremarkable. No radiodense calculus. Mild biliary dilatation likely secondary to pancreatic mass. Pancreas: Mass in the head of the pancreas measuring 3.5 cm. No abnormal calcifications or inflammatory process. Spleen: Normal. Kidneys: Normal size, contour and axis. No radiodense stones or obstructive uropathy. Multiple bilateral low-density area is which have a somewhat irregular appearance, not typical for simple cysts. A small portion of the superior poles of the kidneys were included on the previous exam. Adrenal glands: Enlargement of the left adrenal gland. Aorta: Abdominal portion non-dilated. Lymph nodes: Within normal limits. Soft tissues: Unremarkable. PELVIS: Bladder: Symmetric distention, no gross wall thickening. Bowel: Increased stool. No obstruction or bowel wall thickening. Peritoneal cavity: No ascites, collection or mesenteric inflammatory response. Bones: Lucencies inferomedially in both billy. Reproductive organs: Within normal limits. IMPRESSION: Chest: Interval increase of large right apical tumor, with invasion into the right side of the T2 and T3 vertebral bodies as well as destruction of the 3rd rib invasion of the 4th rib. New lytic lesion of the proximal left 8th rib. No pulmonary emboli. Abdomen and pelvis: 3.5 centimeter pancreatic mass. Bilateral renal masses. Enlargement of the left adrenal gland. Questionable lucencies of the billy. Results Last Vital Signs Temp 97.7 F 10/14/20 07:35 Pulse 86 10/14/20 07:35 Resp 18 10/14/20 07:35 BP 122/86 10/14/20 07:35 Pulse Ox 96 10/14/20 07:35 Labs Result diagrams: 10/12/20 23:38 10/12/20 23:38 Labs: Laboratory Results - last 24 hr 10/13/20 02:00 SARS-CoV-2 (PCR) Negative
[2020-10-14] MEDS: HYDROmorphone 2 MG/ML VIAL IVP (10:20)
[2020-10-14] MEDS: Enoxaparin 80 MG/0.8 ML SYR SC (10:21)
[2020-10-14] MEDS: Docusate Sodium 100 MG CAP PO (10:21)
--- NOTE | 2020-10-14 12:21 | PDOC.CMPRO ---
- If Service Date Differs Date of service: 10/14/20 Time of Service: 12:21 Care Management Progress Note S/O: ANOOP was asked to see Myke prior to his discharge. He was admitted for pain control related to a lung mass. He reported that he is frustrated that the main problem, and source of the pain is not being treated. CM discussed this with him, as [facility] does not offer Oncology, therefore this would not be diagnosed or treated here. Appointments have been made for Myke for an MRI ([place]) on 10/21/20, Oncology ([facility]) on 10/23/20, and PCP ([place]) on 10/24/20. He expressed concern about not having the appointments sooner, but also reported that he already tried to move them up and was not successful. ANOOP explained that his condition was being taken very seriously, and that it is very important that he is able to make it to his appointments. He stated that he will be using [facility] for those appointments, and that he is setting them up over the phone today. He stated that he is currently living at the [facility], through [email or web address] services, but would like to move to the [facility]. He was on hold with during this visit in order to change locations. He asked CM to set up [facility] for a ride to the [facility] today, as he is being discharged. ANOOP called and was informed that he is a candidate for the bus at 1:15. Later, ANOOP was informed that he found a ride, and therefore would not be taking the [facility] shuttle. ANOOP communicated transportation with the [employer] help desk analyst, who informed his RN. A: Myke is a 45 year old male admitted to [facility] on 10/13/20 for lung cancer. P: Myke was discharged to the [facility] today with no new services. He was driven home via private vehicle by a friend. He will follow up with his PCP, Oncology at [facility], and his discharge plan of care. He reported no other services needed at time of discharge.
== END 2020-10-14 12:30 | disposition home or self-care (01) ==
LOC: ER 10-13 03:15 → MS 10-13 03:18
PROVIDERS: Admitting Provider General Practice; Emergency Provider Student in an Organized Health Care Education/Training Program; Visit Provider General Practice
DX: C34.11 Malignant neoplasm of upper lobe, right bronchus or lung (principal); G89.3 Neoplasm related pain (acute) (chronic); C79.51 Secondary malignant neoplasm of bone; I82.493 Acute embolism and thrombosis of other specified deep vein of lower extremity, bilateral; Z79.01 Long term (current) use of anticoagulants; Z87.891 Personal history of nicotine dependence; F12.90 Cannabis use, unspecified, uncomplicated; C78.89 Secondary malignant neoplasm of other digestive organs; C79.72 Secondary malignant neoplasm of left adrenal gland; C79.71 Secondary malignant neoplasm of right adrenal gland; C79.02 Secondary malignant neoplasm of left kidney and renal pelvis; C79.01 Secondary malignant neoplasm of right kidney and renal pelvis
CPT/HCPCS: 36415; 71275; 74177; 80053; 83690; 87635; 93005; 96361; 96374; 96376; 99285; 83880; 84484; 85025; 85610; 85730; 93010; 99219; G0378; J1650; J3010; J3490

== ENCOUNTER 2020-10-28 10:35 | Emergency (ER) | payer MEDICAID, SELFPAY ==
[2020-10-28] VITALS (28 sets, daily range): BP systolic 124–136; BP diastolic 93–98; PULSE 86–102; RESP 10–41; TEMP 36.7; O2SAT 96–100
--- NOTE | 2020-10-28 11:00 | DI.RAD_ITS ---
Exam(s) XR CHEST 2V PA LATERAL EXAM: XR CHEST 2V PA LATERAL CLINICAL HISTORY: chest pain TECHNIQUE: 2D digital imaging was performed of the chest. Images were obtained. PA and lateral v iews were obtained. COMPARISON: No exams were available for comparison FINDINGS: MEDIASTINUM: Normal. HEART: Normal. PULMONARY VASCULATURE: Normal. LUNGS: There is pleural parenchymal scarring present. There is hyperexpansion of the lungs consisten t with underlying COPD. PLEURAL SPACE: No pleural effusion or pneumothorax. BONE:Within normal limits for the patient's age. There is again seen resection of the right 3rd rib. OTHER FINDINGS:Normal. IMPRESSION: No acute pulmonary findings. DATA REPOSITORY: RADIATION DOSE DELIVERED:
[2020-10-28] MEDS: HYDROmorphone 2 MG/ML VIAL 1 MG IVP ×2 (11:18→12:46)
--- NOTE | 2020-10-28 11:36 | ED.GENADUL_ITS ---
Discharge Plan Disposition Patient Disposition: HOME Condition: Stable Discharge Details Clinical Impression: Palliative care patient, Chest wall mass, Rib lesion Primary Care Provider: Myles Soriano ED Provider: Tracy Vuong Home Meds and New Rx's Prescriptions: New hydromorphone [Dilaudid] 2 mg tablet 2 mg PO Q4H PRNQty: 12 RF: 0 No Action ondansetron 4 mg tablet,disintegrating 4 mg PO Q6H PRN PRNRF: 0 oxycodone 5 mg tablet 10 mg PO Q8H PRNRF: 0 enoxaparin [Lovenox] 80 mg/0.8 mL Syringe 80 mg subcut BID RF: 0 Acetaminophen [Tylenol] 650 mg PO Q4H PRN PRNQty: 0 RF: 0 docusate sodium [Colace] 100 mg Capsule 100 mg PO BID Qty: 60 RF: 0 polyethylene glycol 3350 17 gram Powder In Packet 17 g PO BID PRN PRNQty: 0 RF: 0 lorazepam 0.5 mg Tablet 0.5 mg PO QID PRN PRNQty: 10 RF: 0 Narcan 4 mg/actuation spray,non-aerosol 4 mg intranasal Q2M PRNQty: 2 RF: 0 Discharge Instructions Additional Instructions: You must go to your appointment that is scheduled at [facility] on Tuesday, take this medication every 4 hours as needed for pain Do not take more than as prescribed Take Tylenol as needed additionally Please return should you have new or worsening complaints Referrals: Myles Soriano MD [Primary Care Provider] - Discharge Data Discharge Date/Time-TO BE ENTERED AT DEPARTURE: 10/28/20 14:48 Medical Decision Making This is an unfortunate medical case and patient have a potentially complex medical diagnosis that has not received any oncological treatment aside from analgesia It sounds like there are many barriers to his care including transportation and homelessness, Dr. Villarreal Palomares with primary care physician and has been a significant advocate for the patient and patient does have RCT transportation aligned for Tuesday and I have confirmed with patient but he is going to meet with his oncologist and have some additional testing I have considered risk-benefit with prescribing this patient additional analgesia Is a difficult situation and the patient has significant pathology likely is causing significant discomfort, however he has also had numerous missed appointments and this is contributing to the lack of care to this point I had a long discussion with patient including risk of addiction associated with analgesia, specifically opiate I have supplied the patient with 10 tablets of Dilaudid, he is instructed to take these sparingly as we will not be able to provide any additional He is aware of constipation, addiction, and inability to drive for at least 8 hours after taking these medications and assures me that he is going to his appointment on Tuesday with oncology to [facility] Diagnostic labs do not show acute pathology, his chest x-ray does not show evidence of pneumothorax He is discharged home ambulatory with steady gait, alert, oriented, of decisional capacity Medical Records Medical records reviewed: Yes I reviewed the patient's medical records. Lab Data Lab results reviewed: Yes I reviewed the patient's lab results. HPI General Mode of arrival: ambulatory . Date/Time Provider Initiated Documentation: 10/28/20 10:48 . Limitations to Documentation: no limitations . Information obtained by: patient . HPI Narrative: This 45-year-old male presents with history of palliative care, lung cancer, check pulmonary, pancreatic tumor presents with metastatic lung cancer and recurrent pain. He was just recently hospitalized for pain control. Patient with this for pain control increasing pain. He reportedly took 30 tablets of oxycodone this weekend, 10 mg secondary to pain. He per his primary care physician follow-up with department for PET scan and oncology on 31 October. He reportedly has missed numerous appointments secondary to transportation issues. Patient denies any current shortness of breath, fever, falls or injuries. He denies any new pain states the pain is constant and worsening in the affected areas. He is currently living at the [facility] where his daughter currently resides. Related Data Home Medications Medication Instructions Recorded Confirmed enoxaparin [Lovenox] 80 mg SUBCUT BID 10/12/20 10/13/20 Acetaminophen [Tylenol] 650 mg PO Q4H PRN PRN #0 10/14/20 10/28/20 docusate sodium [Colace] 100 mg PO BID #60 cap 10/14/20 10/28/20 lorazepam 0.5 mg PO QID PRN PRN #10 tab 10/14/20 10/28/20 naloxone [Narcan] 4 mg INTRANASAL Q2M PRN #2 ea 10/14/20 10/28/20 polyethylene glycol 3350 17 g PO BID PRN PRN #0 ea 10/14/20 10/28/20 hydromorphone [Dilaudid] 2 mg PO Q4H PRN #12 tab 10/28/20 ondansetron 4 mg PO Q6H PRN PRN 10/28/20 10/28/20 oxycodone 10 mg PO Q8H PRN 10/28/20 10/28/20 Previous Rx's Medication Instructions Recorded Acetaminophen [Tylenol] 650 mg PO Q4H PRN PRN #0 10/14/20 docusate sodium [Colace] 100 mg PO BID #60 cap 10/14/20 lorazepam 0.5 mg PO QID PRN PRN #10 tab 10/14/20 naloxone [Narcan] 4 mg INTRANASAL Q2M PRN #2 ea 10/14/20 polyethylene glycol 3350 17 g PO BID PRN PRN #0 ea 10/14/20 hydromorphone [Dilaudid] 2 mg PO Q4H PRN #12 tab 10/28/20 Allergies Allergy/AdvReac Type Severity Reaction Status Date / Time No Known Allergies Allergy Unverified 10/28/20 10:41 General Stated Complaint: GenMedical CAYDEN: 3 Review of Systems All systems reviewed & are unremarkable except as noted in HPI and below PFSH Social History Smoking/Tobacco Use Status: Former Tobacco Use Quit Date: 10/10/20 Smoking risk assessment performed?: Yes Alcohol Intake: former Drug use: Daily Substance use type: marijuana Do you feel safe at home: Yes Do you feel safe in your relationship?: Yes Exam Const General: cooperative Other: Uncomfortable Eyes Pupils: PERRL Chest Chest: normal inspection of the chest Resp Other: mild Tachypnea, no respiratory distress Cardio Rate: regular rate Rhythm: regular rhythm GI Inspection: normal to inspection Other: Mild right upper quadrant tenderness, no crepitus no rashes or lesions Skin General skin exam: no rashes or lesions noted Neuro General: patient alert and patient oriented x3 Extrem Other: No peripheral edema Course Vital Signs Vital signs: Vital Signs Temperature 36.7 C 10/28/20 10:34 Pulse 92 H 10/28/20 10:34 Respiratory Rate 36 H 10/28/20 10:34 Blood Pressure 136/96 H 10/28/20 10:34 Pulse Oximetry 100 10/28/20 10:34 Temperature 36.7 C 10/28/20 10:34 Temperature Source Skin 10/28/20 10:34 Pulse 92 H 10/28/20 10:34 Respiratory Rate 36 H 10/28/20 10:34 Blood Pressure 136/96 H 10/28/20 10:34 Blood Pressure Position Sitting 10/28/20 10:34 Pulse Oximetry 100 10/28/20 10:34 Oxygen Delivery Method Room Air 10/28/20 10:34 Oxygen Flow Rate 0 10/28/20 10:34 Pain Level 7 10/28/20 10:34
--- NOTE | 2020-10-28 12:11 | NUR.NOTE ---
Report from Diane for continued care. Patient in DI at this time. Nursing Note:
[2020-10-28 12:23] LABS: Creatine Kinase 63 U/L (39-308)
[2020-10-28 12:37] LABS: Abs Immature Grans 0.01 10^3/uL (0.0-0.06); Absolute Basophil Count 0.01 10^3/uL (0.0-0.2); Absolute Eosinophil Count 0.04 10^3/uL (0.0-0.7); Absolute Lymphocyte Count 1.54 10^3/uL (1.2-3.4); Absolute Monocyte Count 0.39 10^3/uL (0.1-0.8); Absolute Neutrophil Count 3.75 10^3/uL (1.2-6.7); Basophils % 0.2; Eosinophils % 0.7; HCT 44.5 % (40.0-50.0); HGB 14.6 g/dL (13.5-17.5); Immature Grans % 0.2; Lymphocytes % 26.8; MCH 30.2 pg (27.0-33.0); MCHC 32.8 % (32.0-36.0); MCV 91.9 fL (80-95); MPV 10.7 fL (8.0-11.0); Monocytes % 6.8; Neutrophils % 65.3; Nucleated RBC 0 %; Platelet Count 180 10^3/uL (130-400); RBC 4.84 10^6/uL (4.36-5.78); RDW 13.3 % (11.8-14.1); RDW-SD 45.3 fL; WBC 5.74 10^3/uL (4.4-10.8)
[2020-10-28 12:49] LABS: ALT 36 U/L (16-63); AST 33 U/L (15-37); Albumin 2.9 g/dL (3.4-5.0); Alkaline Phosphatase 145 U/L (46-116); BUN 12 mg/dL (7-18); Bilirubin, Total 0.6 mg/dL (0.2-1.0); CREATININE 0.6 mg/dL (0.70-1.30); Calcium 8.8 mg/dL (8.5-10.1); Chloride 101 mmol/L (98-107); Glucose 105 mg/dL (74-106); Potassium 3.5 mmol/L (3.5-5.1); Sodium 137 mmol/L (136-145); Total Protein 7.7 g/dL (6.4-8.2)
== END 2020-10-28 14:48 | disposition home or self-care (01) ==
PROVIDERS: Emergency Provider Physician Assistant; PCP Family Medicine
DX: R22.2 Localized swelling, mass and lump, trunk (principal); M89.8X8 Other specified disorders of bone, other site; C34.90 Malignant neoplasm of unspecified part of unspecified bronchus or lung; R52 Pain, unspecified
CPT/HCPCS: 80053; 82550; 96374; 96376; 99284; 71046; 85025

== ENCOUNTER 2020-11-11 19:30 | Emergency (ER) | payer MEDICAID, SELFPAY ==
[2020-11-11 19:31] VITALS: BP 128/96; PULSE 90; RESP 18; TEMP 36.5; O2SAT 99
--- NOTE | 2020-11-11 19:47 | NUR.NOTE ---
Pharmacy called. Refused to fill script because Morphine 30mg Qty 56 tabs was filled 10/31. Increase written for 11/06, for 4 tabs a day. Per pharmacy, patient not due for refill until 11/17. Pharmacy notified prescribing provider at 1195. Patient reports last morphine tab taken this am.
[2020-11-11] MEDS: HYDROmorphone 2 MG/ML VIAL 1 MG IM (19:58)
--- NOTE | 2020-11-11 20:05 | NUR.NOTE ---
Patient given six warm blankets, apple juice and ice water.Nursing Note:
--- NOTE | 2020-11-11 20:43 | W.ED.GENAD ---
Discharge Plan Disposition Patient Disposition: HOME Condition: Good Discharge Details Clinical Impression: Chest wall mass, Chest pain, Palliative care patient Primary Care Provider: Myles Soriano ED Provider: Erick Nicholas Home Meds and New Rx's Prescriptions: Continued celecoxib 200 mg capsule 200 mg PO BID Qty: 30 RF: 4 omeprazole 20 mg capsule,delayed release(DR/EC) 20 mg PO DAILY Qty: 90 RF: 4 morphine 60 mg tablet extended release 60 mg PO Q12H MDD 120 Qty: 14 RF: 0 hydromorphone [Dilaudid] 2 mg tablet 2 mg PO Q4H MDD 5 PRN (Reason: pain) Qty: 5 RF: 0 ondansetron 4 mg tablet,disintegrating 4 mg PO Q6H PRN PRNRF: 0 enoxaparin [Lovenox] 80 mg/0.8 mL Syringe 80 mg subcut BID RF: 0 Acetaminophen [Tylenol] 650 mg PO Q4H PRN PRNQty: 0 RF: 0 docusate sodium [Colace] 100 mg Capsule 100 mg PO BID Qty: 60 RF: 0 polyethylene glycol 3350 17 gram Powder In Packet 17 g PO BID PRN PRNQty: 0 RF: 0 lorazepam 0.5 mg Tablet 0.5 mg PO QID PRN PRNQty: 10 RF: 0 Narcan 4 mg/actuation spray,non-aerosol 4 mg intranasal Q2M PRNQty: 2 RF: 0 Discharge Instructions Additional Instructions: You have been given for extra morphine pills to hold you over until tomorrow when you see your provider. Please discuss continuation of your pain medication plan with them. If you notice any worsening of your symptoms, or any new symptoms such as vomiting, diarrhea, fever, chills, shortness of breath, chest pain, numbness, weakness, or fainting , please return immediately to the emergency department for reevaluation. Please follow up with your primary care provider as soon as possible for reassessment and reevaluation. As always, it was a pleasure participating in your medical care today. 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 He presents today for continued pain in his right chest. Patient ran out of his MS Contin today, and had a return of his severe chronic unchanged right chest pain where his ribs have turned into cancer. He denies any new shortness of breath, vomiting, dizziness, lightheadedness or other complaints. Physical exam is unremarkable, vital signs are stable. Bedside ultrasound was performed and demonstrates good lung sliding bilaterally. No evidence of pneumothorax. The patient does have a history of large blebs. Patient shows no signs of hypoxemia, no hypotension. Symptoms appear clinically consistent with his chronic severe right chest pain secondary to notable metastatic lesions, and subsequent medication noncompliance from running out of his MS Contin. Due to the nature of the patient's severe disease, and current stage of life I do feel it is reasonable to treat the patient's severe pain. No evidence or indication for other work-up at this time. The patient is following up with his oncologist tomorrow at 10, he does have a ride to this appointment. He states that he will be able to take care of his medication plan at that point. Discussed red flags which to return. Patient will be given for MS Contin to go home with. Patient was given IM Dilaudid here and had complete resolution of his pain feels much better and would like to go home. I have extensively reviewed the treatment plan and discharge instructions with the patient. I have addressed all patient concerns at this time. The patient was made aware of what symptoms to monitor for that would warrant a return to the emergency department. Discussed the plan with the patient, they demonstrate verbal understanding and agreement with our assessment and plan at this time. The documentation in this chart was dictated using [employer] dictation software. Please excuse any dictation errors. HPI General Date/Time Provider Initiated Documentation: 11/11/20 19:48. 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 He presents today for continued pain in his right chest. Patient ran out of his MS Contin today, and had a return of his severe chronic unchanged right chest pain where his ribs have turned into cancer. He denies any new shortness of breath, vomiting, dizziness, lightheadedness or other complaints. Related Data Home Medications Medication Instructions Recorded Confirmed enoxaparin [Lovenox] 80 mg SUBCUT BID 10/12/20 11/11/20 Acetaminophen [Tylenol] 650 mg PO Q4H PRN PRN #0 10/14/20 11/11/20 Narcan 4 mg INTRANASAL Q2M PRN #2 ea 10/14/20 11/11/20 docusate sodium [Colace] 100 mg PO BID #60 cap 10/14/20 11/11/20 lorazepam 0.5 mg PO QID PRN PRN #10 tab 10/14/20 11/11/20 polyethylene glycol 3350 17 g PO BID PRN PRN #0 ea 10/14/20 11/11/20 ondansetron 4 mg PO Q6H PRN PRN 10/28/20 11/11/20 celecoxib 200 mg capsule 200 mg PO BID #30 cap 11/07/20 11/11/20 omeprazole 20 mg capsule,delayed 20 mg PO DAILY #90 cap 11/07/20 11/11/20 release hydromorphone 2 mg tablet 2 mg PO Q4H PRN #5 tab MDD 5 11/10/20 11/11/20 morphine 60 mg tablet,extended 60 mg PO Q12H #14 tab MDD 120 11/11/20 11/11/20 release Previous Rx's Medication Instructions Recorded Acetaminophen [Tylenol] 650 mg PO Q4H PRN PRN #0 10/14/20 Narcan 4 mg INTRANASAL Q2M PRN #2 ea 10/14/20 docusate sodium [Colace] 100 mg PO BID #60 cap 10/14/20 lorazepam 0.5 mg PO QID PRN PRN #10 tab 10/14/20 polyethylene glycol 3350 17 g PO BID PRN PRN #0 ea 10/14/20 celecoxib 200 mg capsule 200 mg PO BID #30 cap 11/07/20 omeprazole 20 mg capsule,delayed 20 mg PO DAILY #90 cap 11/07/20 release hydromorphone 2 mg tablet 2 mg PO Q4H PRN #5 tab MDD 5 11/10/20 morphine 60 mg tablet,extended 60 mg PO Q12H #14 tab MDD 120 11/11/20 release Allergies Allergy/AdvReac Type Severity Reaction Status Date / Time No Known Allergies Allergy Unverified 11/11/20 19:40 General Stated Complaint: GenMedical CAYDEN: 3 Review of Systems All systems reviewed & are unremarkable except as noted in HPI and below PFSH Social History Smoking/Tobacco Use Status: Former Tobacco Use Quit Date: 10/10/20 Smoking risk assessment performed?: Yes Alcohol Intake: former Drug use: Daily Substance use type: marijuana Do you feel safe at home: Yes Do you feel safe in your relationship?: Yes Exam Narrative Exam Narrative: 1.Const: Well-nourished, Well-developed, appearing stated age 2.Eyes: PERRL, no conjunctival injection, and symmetrical lids. 3.ENT: Atraumatic external nose and ears. Moist MM. Neck: Symmetric, trachea midline, No thyromegaly. 4.CVS: +S1/S2, No murmurs or gallops. Peripheral pulses 2+ and equal in all extremities. Brisk capillary refill in all extremities. 5.RESP: Diminished breath sounds, tenderness in the right chest. 6.GI: Soft, Nontender/Nondistended, No hepatosplenomegaly. No guarding or rebound. 7.MSK: Normocephalic/Atraumatic, Extremities w/o deformity or ttp No cyanosis or clubbing, Normal movement of all extremities 8.Skin: Warm, Dry. No rashes or lesions. 9.Neuro: portfolio analyst II-XII grossly intact. Sensation grossly intact, no focal neurologic deficits. 10.Psych: (AAO) x3. Appropriate mood and affect Course Vital Signs Vital signs: Vital Signs Temperature 36.5 C 11/11/20 19:31 Pulse 90 11/11/20 19:31 Respiratory Rate 18 11/11/20 19:31 Blood Pressure 128/96 H 11/11/20 19:31 Pulse Oximetry 99 11/11/20 19:31 Temperature 36.5 C 11/11/20 19:31 Temperature Source Temporal Artery Scan 11/11/20 19:31 Pulse 90 11/11/20 19:31 Respiratory Rate 18 11/11/20 19:31 Respiratory Effort Non-Labored 11/11/20 19:41 Respiratory Depth Normal 11/11/20 19:41 Respiratory Pattern Normal 11/11/20 19:41 Blood Pressure 128/96 H 11/11/20 19:31 Blood Pressure Position Sitting 11/11/20 19:31 Pulse Oximetry 99 11/11/20 19:31 Oxygen Delivery Method Room Air 11/11/20 19:31 Oxygen Flow Rate 0 11/11/20 19:31 Pain Level 10 11/11/20 19:31
[2020-11-11 20:58] VITALS: BP 121/89; PULSE 94; RESP 18; O2SAT 100
[2020-11-11] MEDS: HYDROmorphone 2 MG TAB PO (20:59)
== END 2020-11-11 21:07 | disposition home or self-care (01) ==
PROVIDERS: Emergency Provider Student in an Organized Health Care Education/Training Program; PCP Family Medicine
DX: R07.9 Chest pain, unspecified (principal); G89.3 Neoplasm related pain (acute) (chronic); R22.2 Localized swelling, mass and lump, trunk
CPT/HCPCS: 96372; 99284

== ENCOUNTER 2020-11-22 18:47 | Inpatient (IN) | payer MEDICAID, SELFPAY ==
[2020-11-22] VITALS (25 sets, daily range): BP systolic 110–128; BP diastolic 77–94; PULSE 93–124; RESP 16–34; TEMP 36.2–36.4; O2SAT 96–100
--- NOTE | 2020-11-22 18:30 | RT.EKG_ITS ---
APPROVED REPORT Exam: Resting ECG Reason for Exam: chest pain Patient Location: E HR:119 bpm ECG Measurements Heart Rate 119 AXIS IL 139 P 84 QRSd 86 QRS -87 QT 329 T 62 QTc 463 Conclusion Sinus tachycardia...rate> 99 Left anterior fascicular block...axis(240,-40), init forces inf. Sinus. LAFB. No STEMI. I have reviewed and interpreted ECG and agree with software generated interpretation.
--- NOTE | 2020-11-22 19:05 | ED.GENADUL_ITS ---
Discharge Plan Disposition Patient Disposition: [facility] INPATIENT Condition: Serious Discharge Details Clinical Impression: Metastatic cancer, Intractable pain Admit Date/Time: 11/22/20 21:56 Admit Provider: Lawrence Mayer Attending Provider: Lawrence Mayer Primary Care Provider: Myles Soriano ED Provider: Derek Pitts Discharge Data Discharge Date/Time-TO BE ENTERED AT DEPARTURE: 11/22/20 22:58 Discharge Physician: Shantell Butterfield Medical Decision Making <Shantell Butterfield DO - Last Filed: 11/24/20 01:25> 1913 -- 45-year-old male with a history of dvt on lovenox and metastatic lung cancer followed by palliative care and Dr. Church on chronic morphine which he ran out of yesterday presents for right-sided chest pain, right-sided abdominal pain and vomiting twice 30 minutes prior to arrival. EMS ekg strip reported to note potential ST elevation in anterior leads. EKG here notes rate of 119, sinus, no STEMI and nondiagnostic. His heart rate is 117. Remainder vitals within normal limits. Patient appears uncomfortable and is writhing around stretcher and moaning. He has right-sided chest and abdominal tender Patient had CT chest in October 2020 which noted: IMPRESSION: Chest: Interval increase of large right apical tumor, with invasion into the right side of the T2 and T3 vertebral bodies as well as destruction of the 3rd rib invasion of the 4th rib. New lytic lesion of the proximal left 8th rib. No pulmonary emboli. Abdomen and pelvis: 3.5 centimeter pancreatic mass. Bilateral renal masses. Enlargement of the left adrenal gland. Questionable lucencies of the billy. He had a leg ultrasound in September 2020 which noted: IMPRESSION: 1. There is occlusive thrombus seen in the paired peroneal veins measuring 35 cm in length. Patient states he is a full code. Discussed obtaining lab work and imaging to rule out possible PE or other acute process and he is agreeable. 1949 --labs reviewed. White blood cell count 12. Hemoglobin 12. Magnesium 1.8. Troponin negative. 1954 --Case discussed with Dr. Church and that patient is going through pain medications too quickly. He had been receiving daily narcotic prescriptions but patient had requested weekly and this is not working as he is going through them too quickly. She will revert back to daily narcotic prescriptions. If work-up negative for acute findings, recommend sending patient home with 5 tabs of 2 mg Dilaudid p.o. and 2 doses 60 mg morphine to get him through till noon tomorrow. She will send additional prescription to patient's pharmacy for pickup tomorrow. Palliative care will follow up with patient this week. Patient has been reported to have missed multiple [facility] appointments. He is advised to follow-up with his oncologist as directed. Case endorsed to Dr. Pitts to follow-up on imaging and final disposition. Medical Records Medical records reviewed: Yes I reviewed the patient's medical records. Lab Data Lab results reviewed: Yes I reviewed the patient's lab results. ECG Data Attestation: I personally reviewed and interpreted this ECG (s) as follows: Interpretation: Rate of 119, sinus, no acute ST elevation or depression. Left anterior fascicular block. IN 139. QRS 86. QTc 463. <Derek Pitts MD - Last Filed: 11/22/20 22:12> Patient signed out to me pending CT scan. He had presented with right-sided chest pain with known metastatic cancer. Please see Dr. Butterfield's initial ev aluation note. She had extensive discussion with Dr. Church as the patient's palliative care physician. Laboratory studies for the most part are unremarkable. CT scan does not show pulmonary embolus. It does show worsening/growing destructive lesions. The mass in the head of the pancreas is larger. New mass in the left 6th rib. Mass in the thoracic spine has now eroded through the spine and into the canal. There is evidence of renal infarcts likely from emboli bilaterally. I spoke with Dr. Church regarding these findings. She would like patient admitted to hospitalist service with hospice consult for the morning. I did advise the patient that his cancer/lesions were worse with new lesions as well. He has agreed to admission and understands hospice will be seeing him in the morning. Case discussed with hospitalist. Patient will be placed on morphine 4 mg IV every 2 hours for now. He was admitted in stable but serious condition. Lab Data Lab results reviewed: Yes I reviewed the patient's lab results. HPI <Shantell Butterfield DO - Last Filed: 11/24/20 01:25> General Mode of arrival: EMS . Date/Time Provider Initiated Documentation: 11/22/20 19:06 . Limitations to Documentation: no limitations . Information obtained by: patient . HPI Narrative: Patient is a 45-year-old male with a history of lung cancer with metastatic disease chronically on morphine or Dilaudid has followed by palliative care and Dr. Church, history of DVT on Lovenox presents from home for right-sided chest pain that started while lying in bed prior to arrival. He states the pain is sharp and aching and radiates to the right side of his neck and right arm. He also admits to right-sided abdominal pain and admits to 2 episodes of vomiting, initially food then bilious. He states his last bowel movement was yesterday and within normal limits. Patient states he ran out of his morphine yesterday and has 2 tablets of Dilaudid left. Medical records note that patient's treatment course has been complicated by his homelessness and lack of transportation. He is currently staying at the [facility]. Records note that he was seen by Dr. Church in the office 2 days ago and given refills of his morphine and Dilaudid. Related Data Home Medications Medication Instructions Recorded Confirmed enoxaparin [Lovenox] 80 mg SUBCUT BID 10/12/20 11/22/20 Narcan 4 mg INTRANASAL Q2M PRN #2 ea 10/14/20 11/22/20 gabapentin 300 mg capsule 300 mg PO TID #90 cap 11/12/20 11/22/20 hydromorphone 2 mg tablet 2 mg PO Q4H PRN #45 tab MDD 7 11/19/20 11/22/20 morphine 60 mg tablet,extended 60 mg PO Q12H #14 tab MDD 120 11/19/20 11/22/20 release Previous Rx's Medication Instructions Recorded Narcan 4 mg INTRANASAL Q2M PRN #2 ea 10/14/20 gabapentin 300 mg capsule 300 mg PO TID #90 cap 11/12/20 hydromorphone 2 mg tablet 2 mg PO Q4H PRN #45 tab MDD 7 11/19/20 morphine 60 mg tablet,extended 60 mg PO Q12H #14 tab MDD 120 11/19/20 release Allergies Allergy/AdvReac Type Severity Reaction Status Date / Time No Known Allergies Allergy Unverified 11/22/20 18:58 General Stated Complaint: Chest Pain CAYDEN: 2 Review of Systems <Shantell Butterfield DO - Last Filed: 11/24/20 01:25> All systems reviewed & are unremarkable except as noted in HPI and below Constitutional Constitutional: Reports as per HPI, Denies chills and Denies fever(s) Eyes Eyes: Denies blurry vision ENT Ears, Nose, Mouth, and Throat: Denies dizziness, Denies sore throat and Denies throat swelling Cardiovascular Cardiovascular: Reports chest pain and Denies dyspnea Respiratory Respiratory: Denies cough and Denies dyspnea Gastrointestinal Gastrointestinal: Reports abdominal pain, Denies diarrhea and Reports vomiting Genitourinary Genitourinary: Denies hematuria and Denies dysuria Musculoskeletal Musculoskeletal: Denies back pain and Denies numbness Integumentary/Breasts Skin/Breast: Denies lesions and Denies rash Neurologic Neurologic: Denies dizziness, Denies localized weakness and Denies numbness Allergic/Immunologic Allergic/Immunologic: Denies throat swelling PFS <Shantell Butterfield DO - Last Filed: 11/24/20 01:25> Medical History (Updated 11/23/20 @ 19:38 by Sonia Rey MD) Comfort measures only status DNI (do not intubate) DNR (do not resuscitate) Encounter for hospice care discussion Goals of care, counseling/discussion History of pancreatic cancer enlarging pancreatic mass Lung cancer Metastatic disease lungs, LN, pancreas, adrenal, renal, bone Pancoast tumor of right lung Pathological fracture of lumbosacral spine Sheltered [facility] Social isolation family in [place] they have been contacted; will try to come Unintentional weight loss Weakness Surgical History No significant past surgical history Family History (Updated 11/23/20 @ 19:19 by Sonia Rey MD) Brother Obesity Aunt No problems noted. Son Age: 23 No problems noted. Daughter Age: 2y 9m No problems noted. Social History (Updated 11/23/20 @ 19:23 by Sonia Rey MD) Smoking/Tobacco Use Status: Former Tobacco Use Quit Date: 10/10/20 Tobacco: How many years used: 30 Smoking risk assessment performed?: Yes Alcohol Intake: former Drug use: Daily Substance use type: marijuana Caregiver/Support person: No Household members: none Housing: other Details: lives in [facility] as part of homeless support program via state of [place] Number of Children: 2 Communication Needs: None Education Level: high school Do you need help understanding health information?: Always current occupation: unable to work Current gender identity: male How often do you talk on the phone with friends or family?: twice per week How often do you get together with friends or relatives?: twice per week Panel score (0-1 are the most socially isolated patients): 1 What type of physical activity do you participate in: none and sedentary lifestyle Frequency: does not exercise Rowan/Islam: Episcopalian Special rowan needs: No Seatbelt use: always Working smoke detector in home: Yes Fire extinguisher in home: Yes Do you feel safe at home: Yes Do you feel safe in your relationship?: Yes Additional Social history: Myke has not seen oncology; apparently he has missed a few appointments with them, most recently one scheduled for 11/17. He has seen or talked with Dr Church via telehealth for a total of 4 visits. He has widespread cancer, with mets throughout multiple organs and bones. He was admitted this time for intractable pain. We could not reach Keisha, the mother of his daughter, to see if she would be able to care for him at [facility]. It seems unlikely that she can. We talked to his older brother, Saul, known as Fat Boy, who will try to rally his family in [place] and arrange for them to visit [facility]. Exam <Shantell Butterfield DO - Last Filed: 11/24/20 01:25> Const General: cooperative, uncomfortable, no acute distress and other (writhing around stretcher moaning in pain) Orientation: alert, awake and oriented x3 HENMT Head: normal to inspection Face and sinus: normal facial exam Eyes General: appearance normal, both eyes and all related structures EOM: EOM intact bilaterally Neck Neck: normal visual inspection and No submandibular swelling Lymphatic: no lymphadenopathy noted Chest Chest: normal inspection of the chest and tenderness (R anterior chest) Resp Effort & Inspection: normal respiratory effort and able to speak in complete sentences Auscultation: clear to auscultation bilaterally Cardio Rate: regular rate Rhythm: regular rhythm GI Inspection: normal to inspection Palpation: soft, not firm, not rigid and tender in the RLQ and in the RUQ Auscultation: hypoactive bowel sounds Skin General skin exam: no rashes or lesions noted Neuro General: patient alert, patient awake and patient oriented x3 Cognition: normal cognition Speech: speech normal Motor: muscle tone normal throughout Sensory Exam: no sensory deficits noted Extrem General: normal to inspection, full ROM, capillary refill normal, no calf tenderness bilaterally and no edema Psych Appearance: grossly normal Mental Status: mental status grossly normal Speech and Movement: speech and movement normal Affect: normal affect Course <Shantell Butterfield DO - Last Filed: 11/24/20 01:25> Vital Signs Vital signs: Vital Signs Temperature 97.5 F L 11/22/20 18:51 Pulse 117 H 11/22/20 18:51 Respiratory Rate 16 11/22/20 18:51 Pulse Oximetry 98 11/22/20 18:51 Temperature 97.5 F L 11/22/20 18:51 Temperature Source Tympanic 11/22/20 18:51 Pulse 117 H 11/22/20 18:51 Respiratory Rate 16 11/22/20 19:02 Respiratory Effort Non-Labored 11/22/20 19:02 Respiratory Depth Normal 11/22/20 19:02 Respiratory Pattern Normal 11/22/20 19:02 Blood Pressure Position Sitting 11/22/20 18:51 Pulse Oximetry 98 11/22/20 18:51 Oxygen Delivery Method Room Air 11/22/20 18:51 Oxygen Flow Rate 0 11/22/20 18:51 Pain Level 7 11/22/20 18:51 Sign Out <Shantell Butterfield DO - Last Filed: 11/24/20 01:25> Sign Out Data: Sign Out Comment: Follow-up on labs and imaging and final disposition. Attempt to discuss with Dr. Church regarding plan for pain medication for home. Last updated by Shantell Butterfield DO at 11/22/20 19:55
--- NOTE | 2020-11-22 19:15 | DI.CT_ITS ---
Exam(s) CT CHEST PE ABD PELVIS W EXAM: CT CHEST PE ABD PELVIS W CLINICAL HISTORY: R sided chest pain, R side abd pain. TECHNIQUE: Imaging Protocol: Axial CT angiography was performed with multi-slice acquisition and mu lti-planar and/or 3D reconstructions. CONTRAST MATERIAL: Intravenous: Omnipaque 350 Contrast volume:100 mL COMPARISON: CT CT CHEST PE ABD PELVIS W from 10/13/[address] CHEST PE ABD PELVIS W from 10/13/2020 FINDINGS: CHEST: Pulmonary Arteries: No evidence of filling defect to suggest pulmonary emboli. Tracheobronchial tree: Patent where visualized. Mediastinum and Christen: There is unchanged mediastinal and hilar adenopathy. Pulmonary parenchyma: There is again seen a right apical mass causing destructive changes of adjacent ribs and thoracic vertebral bodies. There does appear to be extension into the upper thoracic spinal canal which may be causing central spinal canal stenosis. There is involvement of the right anterior abdominal wall musculature. It appears grossly unchanged compared to the prior examination. Centri lobular and paraseptal emphysematous changes are present in the lungs. No focal consolidating infilt rates. Pleura: No effusion or pneumothorax. Heart: The heart is not dilated. No coronary artery calcifications are seen. No pericardial effusion. Aorta: Thoracic aorta non-dilated. No dissection. Bones: There again seen destructive changes of multiple right and left ribs and the thoracic spine. Findings are consistent with metastatic disease.Since the prior examination, there has been increased involvement of the destructive changes of the bones, particularly in the upper thoracic spine. Soft tissues: Please see above. ABDOMEN: Liver: Normal density. There are stable tiny hypodensities in the liver. They are too small for furth er characterization. No new hepatic lesions are seen. Portal, Superior Mesenteric, and Splenic Veins: Unremarkable. Gallbladder and Biliary Tract: No radiodense calculus or dilation. Pancreas: There has been interval increase in size of the pancreatic head mass lesion currently measu ring 5 x 4 cm. Previously this measured 3.5 cm. Spleen: Normal. Adrenals: The left adrenal mass is increased in size measuring 2.2 x 2.4 cm. This compares to 1.6 x 2 .0 cm. Kidneys: Normal size, contour and axis. No radiodense stones or obstructive uropathy. There are sever al bilateral renal cysts present. There also new areas of decreased enhancement in the kidneys suspic ious for renal infarcts or infection/inflammation. The renal arteries and renal veins appear unremark able. Abdominal Aorta: Abdominal portion non-dilated. Mild atherosclerosis. Bowel: No obstruction or bowel wall thickening. No evidence of appendicitis. There is a large amount of stool throughout the colon suggesting constipation. Peritoneal Cavity: No ascites, collection or mesenteric inflammatory response. No free air. Lymph Nodes: Within normal limits. Bones: Within normal limits for the patient's age. Soft Tissues: Unremarkable. PELVIS: Bladder: Symmetric distention, no gross wall thickening. Reproductive Organs: Unremarkable as visualized. Lymph Nodes: Within normal limits. Bones: Within normal limits. IMPRESSION: 1. No evidence pulmonary embolism, thoracic aortic dissection or aneurysm. 2. Persistent large destructive right upper lobe chest mass with destructive involvement of the adjac ent ribs and the thoracic spine. The osseous destruction has progressed since the prior examination. This is most marked in the upper thoracic spine where there is involvement of the central spinal amarjit l resulting in central spinal canal stenosis. Cord compression cannot be excluded. MRI should be cons idered for further evaluation. Progressive metastatic disease. 3. Interval increase in size of the pancreatic head mass suspicious for primary pancreatic carcinoma. 4. Interval increase in size of the left adrenal mass suspicious for metastatic disease. 5. New areas of decreased enhancement of the kidneys bilaterally. Renal infarct or a renal inflammato ry/infectious process (pyelonephritis) should be considered. Please correlate clinically. RADIATION DOSE DELIVERED: 1,114.49mGy.cm Total DLP DATA REPOSITORY: All CT scans at this facility are submitted to the National Radiology Data Registry (NRDR) Dose Index Registry (DIR) with the [employer] (ACR). RADIATION OPTIMIZATION: All CT scans at this facility use at least one of these dose optimization te chniques: automated exposure control; mA and/or kV adjustment per patient size (includes targeted exa ms where dose is matched to clinical indication); or iterative reconstruction.
[2020-11-22 19:16] LABS: Abs Immature Grans 0.04 10^3/uL (0.0-0.06); Absolute Lymphocyte Count 3.38 10^3/uL (1.2-3.4); Absolute Monocyte Count 0.93 10^3/uL (0.1-0.8); Basophils % 0.2; Eosinophils % 0.2; HCT 39.4 % (40.0-50.0); HGB 12.9 g/dL (13.5-17.5); Immature Grans % 0.3; Lymphocytes % 27.2; MCH 29.3 pg (27.0-33.0); MCHC 32.7 % (32.0-36.0); MCV 89.5 fL (80-95); MPV 10.9 fL (8.0-11.0); Monocytes % 7.5; Neutrophils % 64.6; Nucleated RBC 0 %; Platelet Count 255 10^3/uL (130-400); RDW 13.4 % (11.8-14.1); RDW-SD 44.5 fL; WBC 12.41 10^3/uL (4.4-10.8)
[2020-11-22 19:17] LABS: Absolute Basophil Count 0.02 10^3/uL (0.0-0.2); Absolute Eosinophil Count 0.02 10^3/uL (0.0-0.7); Absolute Neutrophil Count 8.02 10^3/uL (1.2-6.7)
[2020-11-22] MEDS: Normal Saline 1,000 ML 1000 ML IV (19:35)
[2020-11-22 19:37] LABS: ALT 59 U/L (16-63); AST 42 U/L (15-37); Albumin 2.9 g/dL (3.4-5.0); Alkaline Phosphatase 165 U/L (46-116); Anion Gap 11.8 mmol/L (3-11); BUN 21 mg/dL (7-18); Bilirubin, Total 1.1 mg/dL (0.2-1.0); CO2 30.2 mmol/L (21.0-32.0); Calcium 10.3 mg/dL (8.5-10.1); Chloride 95 mmol/L (98-107); Glucose 110 mg/dL (74-106); Magnesium 1.8 mg/dL (1.8-2.4); Potassium 3.5 mmol/L (3.5-5.1); Sodium 137 mmol/L (136-145); Total Protein 8.7 g/dL (6.4-8.2)
[2020-11-22 19:38] LABS: Troponin I < 0.05 ng/mL (<0.06)
[2020-11-22 19:58] LABS: Lipase 40 U/L (73-393)
[2020-11-22] MEDS: Omnipaque 350 MG/ML 100 ML BTL IJ (20:04)
[2020-11-22] MEDS: Normal Saline - Diluent 50 ML VIAL IV (20:04)
--- NOTE | 2020-11-22 21:30 | DI.VRAD_ITS ---
PROCEDURE INFORMATION: Exam: CT Abdomen And Pelvis With Contrast Exam date and time: 11/22/2020 7:24 PM Age: 45 years old Clinical indication: Abdominal pain; Chest wall pain and right-sided; Prior surgery; Patient HX: R sided chest pain, R side abd pain; Additional info: R/O pe, pneumonia, sbo, mets TECHNIQUE: Imaging protocol: Computed tomography of the abdomen and pelvis with contrast. COMPARISON: CT CHEST PE ABD PELVIS W 10/13/2020 12:18 AM FINDINGS: Liver: Normal. No mass. Gallbladder and bile ducts: Normal. No calcified stones. No ductal dilation. Pancreas: Approximately 5.0 x 4.0 cm mass lesion is seen in pancreatic head. Spleen: Normal. No splenomegaly. Adrenal glands: 2.5 x 2.3 cm left adrenal mass lesion seen on series 12, image 27. Kidneys and ureters: Multiple areas of abnormal cortical enhancement are seen in bilateral kidneys. Stomach and bowel: No areas of wall thickening in the large bowel. No evidence of large bowel obstruction. No pericolonic inflammatory changes to suggest acute diverticulitis. No wall thickening in the small bowel. No evidence of small bowel obstruction. Appendix: Normal appendix seen. Intraperitoneal space: No free fluid or fluid collections. No inflammatory changes. No free air. Vasculature: Unremarkable. No abdominal aortic aneurysm. Lymph nodes: Unremarkable. No enlarged lymph nodes. Urinary bladder: Unremarkable as visualized. Reproductive: Unremarkable as visualized. Bones/joints: Unremarkable. No acute fracture. Soft tissues: Unremarkable. IMPRESSION: 1. Approximately 5.0 x 4.0 cm mass lesion is seen in pancreatic head. There is interval increase in size of the mass lesion compared to prior study. Finding is consistent with progression of disease. 2. 2.5 x 2.3 cm left adrenal mass lesion seen on series 12, image 27. This finding is new compared to prior study. Metastatic disease should be considered. 3. Multiple areas of abnormal cortical enhancement are seen in bilateral kidneys. These findings are new compared to prior study. Areas of renal infarcts and pyelonephritis should be considered in differential diagnosis. Please correlate clinically. Embolic disease should be considered in setting of possible renal infarcts. Dictated and Authenticated by: Alisson Aragon MD. Ordering:MEGHAN Stinson MD
--- NOTE | 2020-11-22 22:04 | HPE_ITS ---
Date of service: 11/22/20 Time of Service: 22:04 Assessment and Plan Assessment and plan (1) Intractable pain: Start date: 11/22/20 Status: Acute Assessment and plan: This is a 45-year-old gentleman with rapidly progressive metastatic lung cancer with poor pain control and poor social situation with reports of homelessness though there is mention of partner with a young child at home. Hospice will be consulted the patient to have pain management as an inpatient transition to outpatient care if home care is possible. Prognosis is poor patient should be DNR/DNI. (2) Lung cancer metastatic to bone: Status: Chronic Assessment and plan: Pain management as above with patient temporarily on IV morphine which with IV Dilaudid but long-term management needs to be discussed with patient having a large dosages of narcotics prior to this admission. He may be tolerant. (3) Comfort measures only status: Status: Acute Assessment and plan: Palliative care consultation. (4) Goals of care, counseling/discussion: Status: Acute Assessment and plan: Patient care consultation. (5) Social isolation: Status: Chronic Assessment and plan: Palliative care consultation. History of Present Illness History of Present Illness Chief Complaint: Right-sided chest and abdominal pain with no metastatic lung cancer Narrative: This is a 45-year-old male patient who has known lung cancer now metastatic diffusely over chest and abdomen including bone involvement with increasing pain that is uncontrolled at home. He is taking an increased amount of oral narcotics with PCP not able to keep up. He was admitted for pain management and discussion of placement on hospice. The patient has had this diagnosis within the last month and this is progressing quickly. He was on treatment for DVT with Lovenox daily which should be reviewed ongoing with increased bleeding risk. Patient did have some nausea vomiting to the ED but this has improved. He continues to be in pain not responding to IV morphine and reviewing his outpatient treatment he was on at least 120 mg of long-acting morphine twice daily and Dilaudid at an unknown dosing 4 mg tablet as needed. This is not working. Patient is a full code upon mission but should be DNR/DNI with discussion for palliative care and hospice placement at home for better pain management. This may be difficult with his social situation appearing tenuous with homelessness living in the [facility] though there was mention of a partner with a 2-year-old child. He did run out of his pain medicine the day prior to presentation and did have emesis with pain being sharp and radiating into his right arm and neck. He also has a tender swelling over his left scalp in the occipital region which draines that times. Review of Systems Narrative: 13 point review of systems otherwise unrevealing or stable. Patient mostly complaining of his acute progressive symptoms. As stated, he has lost weight. [facility] Medical History Comfort measures only status Goals of care, counseling/discussion History of pancreatic cancer enlarging pancreatic mass Lung cancer Metastatic disease lungs, LN, pancreas, adrenal, renal, bone Sheltered homelessness [facility] Social isolation family in [place] they have been contacted; will try to come Surgical History No significant past surgical history Social History Smoking/Tobacco Use Status: Former Tobacco Use Quit Date: 10/10/20 Smoking risk assessment performed?: Yes Alcohol Intake: former Drug use: Daily Substance use type: marijuana Caregiver/Support person: No Household members: none Housing: other Do you feel safe at home: Yes Do you feel safe in your relationship?: Yes Meds Allergies and Home Medications Allergies Allergy/AdvReac Type Severity Reaction Status Date / Time No Known Allergies Allergy Unverified 11/22/20 18:58 Home Medications Medication Instructions Recorded Confirmed Type enoxaparin [Lovenox] 80 mg SUBCUT BID 10/12/20 11/22/20 History Narcan 4 mg INTRANASAL Q2M PRN #2 ea 10/14/20 11/22/20 Rx gabapentin 300 mg capsule 300 mg PO TID #90 cap 11/12/20 11/22/20 Rx hydromorphone 2 mg tablet 2 mg PO Q4H PRN #45 tab MDD 7 11/19/20 11/22/20 Rx morphine 60 mg tablet,extended 60 mg PO Q12H #14 tab MDD 120 11/19/20 11/22/20 Rx release Exam Narrative Exam Narrative: General: Tall and thin almost cachectic, he appears restless and uncomfortable and in moderate distress with abdominal and chest discomfort. He is alert and oriented to person, place and time. Speech is slow with monotonous tone but he is able to offer accurate history. HEENT: Normocephalic, scalp with palpable subcutaneous firm mass over the left occiput area which is tender without drainage and appears not to be attached to the skull, eyes with pupils equal and reactive to light symmetrically, extraocular movements active sclera anicteric. Oropharynx with dry mucosa. Poor dentition. Neck: Supple without JVD. Back: Stooped posture without CVA tenderness. Lungs: Fair aeration without rales, rhonchi or expiratory wheeze. Heart: Regular rate and rhythm with no murmurs gallops appreciated. Abdomen: Tender to palpation over most of the abdomen especially upper abdomen with guarding. No rebound. Bowel sounds are positive but decreased in all quadrants. Genitalia/rectal: Exam deferred. Extremities: Without clubbing, cyanosis or pitting edema. Patient appears to have diffuse muscle wasting. Peripheral pulses intact. Skin: Brown, no lesions except as palpated over left occipital scalp, normal turgor, warm and dry. Neuro: Cranial nerves II to XII grossly intact, no focal motor deficits. Psych: Flattened affect with depressed mood. No abnormal thought processes. Remote and recent memory appear to be grossly intact. Results Imaging Imaging Studies: a CT:CT chest PE abd & pelvis w Exam(s) CT CHEST PE ABD PELVIS W EXAM: CT CHEST PE ABD PELVIS W CLINICAL HISTORY: R sided chest pain, R side abd pain. TECHNIQUE: Imaging Protocol: Axial CT angiography was performed with multi- slice acquisition and multi-planar and/or 3D reconstructions. CONTRAST MATERIAL: Intravenous: Omnipaque 350 Contrast volume:100 mL COMPARISON: CT CT CHEST PE ABD PELVIS W from 10/13/[address] CHEST PE ABD PELVIS W from 10/13/2020 FINDINGS: CHEST: Pulmonary Arteries: No evidence of filling defect to suggest pulmonary emboli. Tracheobronchial tree: Patent where visualized. Mediastinum and Christen: There is unchanged mediastinal and hilar adenopathy. Pulmonary parenchyma: There is again seen a right apical mass causing destructive changes of adjacent ribs and thoracic vertebral bodies. There does appear to be extension into the upper thoracic spinal canal which may be causing central spinal canal stenosis. There is involvement of the right anterior abdominal wall musculature. It appears grossly unchanged compared to the prior examination. Centrilobular and paraseptal emphysematous changes are present in the lungs. No focal consolidating infiltrates. Pleura: No effusion or pneumothorax. Heart: The heart is not dilated. No coronary artery calcifications are seen. No pericardial effusion. Aorta: Thoracic aorta non-dilated. No dissection. Bones: There again seen destructive changes of multiple right and left ribs and the thoracic spine. Findings are consistent with metastatic disease.Since the prior examination, there has been increased involvement of the destructive changes of the bones, particularly in the upper thoracic spine. Soft tissues: Please see above. ABDOMEN: Liver: Normal density. There are stable tiny hypodensities in the liver. They are too small for further characterization. No new hepatic lesions are seen. Portal, Superior Mesenteric, and Splenic Veins: Unremarkable. Gallbladder and Biliary Tract: No radiodense calculus or dilation. Pancreas: There has been interval increase in size of the pancreatic head mass lesion currently measuring 5 x 4 cm. Previously this measured 3.5 cm. Spleen: Normal. Adrenals: The left adrenal mass is increased in size measuring 2.2 x 2.4 cm. This compares to 1.6 x 2.0 cm. Kidneys: Normal size, contour and axis. No radiodense stones or obstructive uropathy. There are several bilateral renal cysts present. There also new areas of decreased enhancement in the kidneys suspicious for renal infarcts or infection/inflammation. The renal arteries and renal veins appear unremarkable. Abdominal Aorta: Abdominal portion non-dilated. Mild atherosclerosis. Bowel: No obstruction or bowel wall thickening. No evidence of appendicitis. Th ere is a large amount of stool throughout the colon suggesting constipation. Peritoneal Cavity: No ascites, collection or mesenteric inflammatory response. No free air. Lymph Nodes: Within normal limits. Bones: Within normal limits for the patient's age. Soft Tissues: Unremarkable. PELVIS: Bladder: Symmetric distention, no gross wall thickening. Reproductive Organs: Unremarkable as visualized. Lymph Nodes: Within normal limits. Bones: Within normal limits. IMPRESSION: 1. No evidence pulmonary embolism, thoracic aortic dissection or aneurysm. 2. Persistent large destructive right upper lobe chest mass with destructive involvement of the adjacent ribs and the thoracic spine. The osseous destruction has progressed since the prior examination. This is most marked in the upper thoracic spine where there is involvement of the central spinal canal resulting in central spinal canal stenosis. Cord compression cannot be excluded. MRI should be considered for further evaluation. Progressive metastatic disease. 3. Interval increase in size of the pancreatic head mass suspicious for primary pancreatic carcinoma. 4. Interval increase in size of the left adrenal mass suspicious for metastatic disease. 5. New areas of decreased enhancement of the kidneys bilaterally. Renal infarct or a renal inflammatory/infectious process (pyelonephritis) should be considered. Please correlate clinically. RADIATION DOSE DELIVERED: 1,114.49mGy.cm Total DLP DATA REPOSITORY: All CT scans at this facility are submitted to the National Radiology Data Registry (NRDR) Dose Index Registry (DIR) with the [employer] (A[employer]). RADIATION OPTIMIZATION: All CT scans at this facility use at least one of these dose optimization techniques: automated exposure control; mA and/or kV adjustment per patient size (includes targeted exams where dose is matched to clinical indication); or iterative reconstruction. 3509-1935: Total DLP = 0.00 mGy-cm Ordered By: Shantell Butterfield DO CC: Dictated By: Derek Wade M.D. 11/23/20 1027 Labs Result diagrams: 11/23/20 06:19 11/23/20 06:19 Labs: Laboratory Results - last 24 hr 11/22/20 11/22/20 11/22/20 19:00 19:00 19:00 WBC 12.41 H RBC 4.40 Hgb 12.9 L Hct 39.4 L MCV 89.5 MCH 29.3 MCHC 32.7 RDW 13.4 Plt Count 255 MPV 10.9 Immature Gran % 0.3 Neutrophils % 64.6 Lymphocytes % 27.2 Monocytes % 7.5 Eosinophils % 0.2 Basophils % 0.2 Nucleated RBC % 0 Absolute Neutrophils 8.02 H Absolute Lymphocytes 3.38 Absolute Monocytes 0.93 H Absolute Eosinophils 0.02 Absolute Basophils 0.02 Sodium 137 Potassium 3.5 Chloride 95 L Carbon Dioxide 30.2 Anion Gap 11.8 H BUN 21 H Creatinine 1.0 Estimated GFR/1.73 m2 >= 60.00 Glucose 110 H Calcium 10.3 H Magnesium 1.8 Total Bilirubin 1.1 H AST 42 H ALT 59 Alkaline Phosphatase 165 H Troponin I < 0.05 Total Protein 8.7 H Albumin 2.9 L Lipase 40 11/22/20 22:09 WBC RBC Hgb Hct MCV MCH MCHC RDW Plt Count MPV Immature Gran % Neutrophils % Lymphocytes % Monocytes % Eosinophils % Basophils % Nucleated RBC % Absolute Neutrophils Absolute Lymphocytes Absolute Monocytes Absolute Eosinophils Absolute Basophils Sodium Potassium Chloride Carbon Dioxide Anion Gap BUN Creatinine Estimated GFR/1.73 m2 Glucose Calcium Magnesium Total Bilirubin AST ALT Alkaline Phosphatase Troponin I Cancelled Total Protein Albumin Lipase Last Vital Signs Temp 36.4 C L 11/22/20 21:16 Pulse 108 H 11/22/20 21:16 Resp 16 11/22/20 21:16 BP 112/89 11/22/20 21:16 Pulse Ox 97 11/22/20 21:16
[2020-11-22 22:57] LABS: Source Nasal/Nares
[2020-11-22] MEDS: MORPHine 4 MG/ML SYR IVP (23:35)
[2020-11-22 23:41] LABS: Bilirubin Moderate (Negative); Blood Large (Negative); Clarity Cloudy (Clear); Glucose Negative (Negative); Ketones 80 mg/dL (Negative); Leukocyte Esterase Negative (Negative); Nitrite Positive (Negative); Specific Gravity 1.015 (1.005-1.025); Urobilinogen >=8.0 EU/dL (Up TO 0.2)
[2020-11-22 23:51] LABS: RBC >50 HPF (0-2)
[2020-11-22 23:52] LABS: C & S Indicated? Yes
[2020-11-23] MEDS: MORPHine 4 MG/ML SYR IVP ×4 (00:53→04:48)
[2020-11-23] MEDS: Normal Saline Flush 10 ML SYR IVP ×6 (00:53→18:26)
[2020-11-23 03:05] VITALS: BP 131/94; PULSE 104; RESP 18; TEMP 36.2; O2SAT 98
[2020-11-23] MEDS: HYDROmorphone 2 MG/ML VIAL 1 MG IVP (06:50)
[2020-11-23 06:52] LABS: Abs Immature Grans 0.02 10^3/uL (0.0-0.06); Absolute Basophil Count 0.03 10^3/uL (0.0-0.2); Absolute Lymphocyte Count 3.44 10^3/uL (1.2-3.4); Absolute Neutrophil Count 5.47 10^3/uL (1.2-6.7); Basophils % 0.3; HCT 36.9 % (40.0-50.0); HGB 12.1 g/dL (13.5-17.5); Immature Grans % 0.2; Lymphocytes % 33.9; MCHC 32.8 % (32.0-36.0); MCV 88.5 fL (80-95); MPV 10.8 fL (8.0-11.0); Monocytes % 10.8; Neutrophils % 53.8; Nucleated RBC 0 %; Platelet Count 247 10^3/uL (130-400); RBC 4.17 10^6/uL (4.36-5.78); RDW 13.8 % (11.8-14.1); RDW-SD 44.8 fL; WBC 10.16 10^3/uL (4.4-10.8)
[2020-11-23] MEDS: Heparin 5,000 UNITS/ML VIAL 5000 UNITS SC (06:52)
[2020-11-23 07:15] LABS: ALT 49 U/L (16-63); AST 32 U/L (15-37); Albumin 2.6 g/dL (3.4-5.0); Alkaline Phosphatase 137 U/L (46-116); Anion Gap 10.8 mmol/L (3-11); BUN 19 mg/dL (7-18); Bilirubin, Total 0.9 mg/dL (0.2-1.0); CO2 26.2 mmol/L (21.0-32.0); CREATININE 0.7 mg/dL (0.70-1.30); Calcium 9.3 mg/dL (8.5-10.1); Chloride 98 mmol/L (98-107); Glucose 107 mg/dL (74-106); Potassium 3.7 mmol/L (3.5-5.1); Sodium 135 mmol/L (136-145); Total Protein 7.8 g/dL (6.4-8.2)
[2020-11-23 07:39] VITALS: BP 124/88; PULSE 94; RESP 17; TEMP 36.4; O2SAT 97
[2020-11-23 08:07] LABS: COVID-19 PCR Negative (Negative)
[2020-11-23] MEDS: Gabapentin 300 MG CAP PO ×3 (08:46→20:36)
--- NOTE | 2020-11-23 08:59 | W.PM.HP.N ---
Date of service: 11/23/20 Time of Service: 08:00 Assessment and Plan Assessment and plan (1) History of pancreatic cancer: Status: Suspected Assessment and plan: Unclear whether a second primary or a met from the radiologist's reading. No severe abdominal pain at this time. Pain more centered in his skeleton. (2) Lung cancer metastatic to bone: Status: Chronic Assessment and plan: Diagnosed 3 months ago as a Stage IV cancer by imaging. Did not receive oncology care. Did not make it to his appointments. Could not explore this with him, as he was in so much pain. Unlikely that he will be able to leave the hospital prior to his . (3) Goals of care, counseling/discussion: Status: Acute Assessment and plan: He wants his pain controlled. He wants to see his son and his siblings and his aunt. He wants to see his his daughter and his mother. He doesn't think Keisha can care for him at home. Note that only his brother Saul picked up his phone call, at 9 am. Neither Myke's son, nor his daughter's mother, picked up. (4) Intractable pain: Status: Acute Assessment and plan: Will require aggressive pain control. Has not been pain free for 3 months, per his report. Consider added IV steroids for bone pain. Consider adding lorazepam to help with anxiety of pain. (5) Pancoast tumor of right lung: Status: Acute (6) Bone metastasis: Status: Acute (7) Pathological fracture of lumbosacral spine: Status: Acute Assessment and plan: At risk for paralysis, due to further erosion of his spine. (8) Weakness: Status: Acute (9) Unintentional weight loss: Status: Chronic (10) DNR (do not resuscitate): Status: Acute Assessment and plan: changed his code status today during out meeting he understands that he would very unlikely survive a code to the point where he would be able to converse with his family/loved ones he understands that his ribs and other bones likely would break during an attempt at resuscitation therefore, he is now DNR/DNI (11) DNI (do not intubate): Status: Acute (12) Other incomplete lesion at T2-T6 level of thoracic spinal cord, initial encounter: Status: Acute (13) Encounter for hospice care discussion: Status: Acute Assessment and plan: Unlikely he will be able to go home on hospice. Will make myself available for further hospice consult as needed. Is on comfort measures at [facility]. Will ensure that my colleague Damaris Garland follow Myke later this week for Pall Care. His family, except for his aunt, are all unvaccinated against COVID-19. Two healthy family/friends (the same two), can visit, while masked. Other visitors who are vaccinated can visit ad alecia. [facility] may need to have further detailed conversations with Myke's family, who are due to arrive from [place] imminently. History of Present Illness History of Present Illness Chief Complaint: This is a hospice consult for pain management, [facility]. Consults Consult date: 11/23/20 Requesting physician: Azra Granados Narrative: I was called last night by my colleague Dr Erin Church who is away. The ER had contacted her to let her know that Myke was back with uncontrolled pain and a new paralysis-threatening pathologic spinal fracture. She asked that I see Myke as a hospice consult. The hospitalist team agreed with this approach. Dr Church has seen Myke 4 times for palliative care since 10/14/20. He was diagnosed with lung cancer, Pancoast tumor of the right lung, by CT scan in August 2020. He has not received any treatment for his cancer, no chemo, no radiation, no immunotherapy. He was supposed to meet with Dr Arredondo, oncologist on 11/17/20. He did not make that appointment. By imaging, Myke has stage IV cancer, widespread metastases, mostly to his bones causing extremely painful lytic lesions throughout his skeleton. He is in excruciating pain. He has not been out of pain since before August, he reports. I was asked to discuss his code status, his goals of care, and present a plan for pain management to the hospitalist team. I was hoping to talk about possible hospice care. He was admitted to the hospitalist service last night. He lives at the [facility], as he is homeless. [facility] was able to move him to the [facility] from the [facility] in [place] so he could be closer to his 2 yo daughter and her mother, Keisha Mcmahan, who both reside at [facility]. He names Sonia as his closest support person. I was unable to reach his daughter's mother, Keisha, to see if she would be willing to have Myke go home to the [facility] on hospice. Review of Systems Narrative: difficult to get a full ROS as Myke was in so much pain he did say he has lost >50 lbs this year he is weak, tired, with no appetite he has pain throughout his body, mostly in his chest and ribs he gets dyspneic with minimal exertion he says he is at peace with his GOD; he did not want a bottling line attendant to visit he would like to see his son and his siblings prior to his he understands that his cancer is spreading very rapidly and will likely result in his soon, within days I shared this information with his brother, Saul. Saul will disseminate the news to the rest of Myke's family. I tried to reach Myke's most recent SO and mother of his 2 yo daughter. This woman, Keisha Mcmahan, did not bulk picker the phone. Myke doesn't think she would be able to take care of him at the [facility]. [facility] Medical History (Updated 11/23/20 @ 19:38 by Sonia Rey MD) Comfort measures only status DNI (do not intubate) DNR (do not resuscitate) Encounter for hospice care discussion Goals of care, counseling/discussion History of pancreatic cancer enlarging pancreatic mass Lung cancer Metastatic disease lungs, LN, pancreas, adrenal, renal, bone Pancoast tumor of right lung Pathological fracture of lumbosacral spine Sheltered [facility] Social isolation family in [place] they have been contacted; will try to come Unintentional weight loss Weakness Surgical History No significant past surgical history Family History (Updated 11/23/20 @ 19:19 by Sonia Rey MD) Brother Obesity Aunt No problems noted. Son Age: 23 No problems noted. Daughter Age: 2y 9m No problems noted. Social History (Updated 11/23/20 @ 19:23 by Sonia Rey MD) Smoking/Tobacco Use Status: Former Tobacco Use Quit Date: 10/10/20 Tobacco: How many years used: 30 Smoking risk assessment performed?: Yes Alcohol Intake: former Drug use: Daily Substance use type: marijuana Caregiver/Support person: No Household members: none Housing: other Details: lives in [facility] as part of homeless support program via state of [place] Number of Children: 2 Communication Needs: None Education Level: high school Do you need help understanding health information?: Always current occupation: unable to work Current gender identity: male How often do you talk on the phone with friends or family?: twice per week How often do you get together with friends or relatives?: twice per week Panel score (0-1 are the most socially isolated patients): 1 What type of physical activity do you participate in: none and sedentary lifestyle Frequency: does not exercise Rowan/Holiness: Jew Special rowan needs: No Seatbelt use: always Working smoke detector in home: Yes Fire extinguisher in home: Yes Do you feel safe at home: Yes Do you feel safe in your relationship?: Yes Additional Social history: Myke has not seen oncology; apparently he has missed a few appointments with them, most recently one scheduled for 11/17. He has seen or talked with Dr Church via telehealth for a total of 4 visits. He has widespread cancer, with mets throughout multiple organs and bones. He was admitted this time for intractable pain. We could not reach Keisha, the mother of his daughter, to see if she would be able to care for him at [facility]. It seems unlikely that she can. We talked to his older brother, Saul, known as Fat Boy, who will try to rally his family in [place] and arrange for them to visit [facility]. Meds Allergies and Home Medications Allergies Allergy/AdvReac Type Severity Reaction Status Date / Time No Known Allergies Allergy Unverified 11/22/20 18:58 Home Medications Medication Instructions Recorded Confirmed Type enoxaparin [Lovenox] 80 mg SUBCUT BID 10/12/20 11/22/20 History Narcan 4 mg INTRANASAL Q2M PRN #2 ea 10/14/20 11/22/20 Rx gabapentin 300 mg capsule 300 mg PO TID #90 cap 11/12/20 11/22/20 Rx hydromorphone 2 mg tablet 2 mg PO Q4H PRN #45 tab MDD 7 11/19/20 11/22/20 Rx morphine 60 mg tablet,extended 60 mg PO Q12H #14 tab MDD 120 11/19/20 11/22/20 Rx release Exam Narrative Exam Narrative: I met with Myke this am at the request of Dr Church for a hospice consult, to see if there was any way Myke could go home with hospice at the [facility] with his former SO and their daughter. Unfortunately, Myke is already completely bedbound. He is in severe pain. He is at right risk for paralysis due to his vertebral mets. He feels safe in the hospital. He and I discussed his code status; he understands that he is dying and his end is fast approaching. He state he has no fears. He says he is at peace. He just wants his pain controlled. He was intermittently grimacing and moaning until he received hydromorphone IVP. He will be starting a pump with instructions to titrate to comfort. He was polite and cooperative. He was in pain with any movement. His lungs were distant. He had pain with inspiration. He was trying not to move in his bed due to pain. His skin was warm. He had bowel sounds. No obvious masses in his abdomen. He had pain over his right ribs even with auscultation of his lungs. He legs feet arms and hands were warm to the touch. Results Labs Result diagrams: 11/23/20 06:19 11/23/20 06:19 Labs: Laboratory Results - last 24 hr 11/22/20 11/22/20 11/22/20 19:00 19:00 19:00 WBC 12.41 H RBC 4.40 Hgb 12.9 L Hct 39.4 L MCV 89.5 MCH 29.3 MCHC 32.7 RDW 13.4 Plt Count 255 MPV 10.9 Immature Gran % 0.3 Neutrophils % 64.6 Lymphocytes % 27.2 Monocytes % 7.5 Eosinophils % 0.2 Basophils % 0.2 Nucleated RBC % 0 Absolute Neutrophils 8.02 H Absolute Lymphocytes 3.38 Absolute Monocytes 0.93 H Absolute Eosinophils 0.02 Absolute Basophils 0.02 Sodium 137 Potassium 3.5 Chloride 95 L Carbon Dioxide 30.2 Anion Gap 11.8 H BUN 21 H Creatinine 1.0 Estimated GFR/1.73 m2 >= 60.00 Glucose 110 H Calcium 10.3 H Magnesium 1.8 Total Bilirubin 1.1 H AST 42 H ALT 59 Alkaline Phosphatase 165 H Troponin I < 0.05 Total Protein 8.7 H Albumin 2.9 L Lipase 40 Urine Color Urine Clarity Urine pH Ur Specific [place] Urine Protein Urine Ketones Urine Blood Urine Nitrite Urine Bilirubin Urine Urobilinogen Ur Leukocyte Esterase Urine RBC Urine WBC Ur Epithelial Cells Urine Crystals Urine Bacteria Urine Mucus Ur Culture Indicated? Urine Glucose COVID-19 Source SARS-CoV-2 (PCR) 11/22/20 11/22/20 11/22/20 22:09 22:25 23:34 WBC RBC Hgb Hct MCV MCH MCHC RDW Plt Count MPV Immature Gran % Neutrophils % Lymphocytes % Monocytes % Eosinophils % Basophils % Nucleated RBC % Absolute Neutrophils Absolute Lymphocytes Absolute Monocytes Absolute Eosinophils Absolute Basophils Sodium Potassium Chloride Carbon Dioxide Anion Gap BUN Creatinine Estimated GFR/1.73 m2 Glucose Calcium Magnesium Total Bilirubin AST ALT Alkaline Phosphatase Troponin I Cancelled Total Protein Albumin Lipase Urine Color Red Urine Clarity Cloudy Urine pH 7.0 Ur Specific [place] 1.015 Urine Protein 100 H Urine Ketones 80 H Urine Blood Large H Urine Nitrite Positive H Urine Bilirubin Moderate H Urine Urobilinogen >=8.0 Ur Leukocyte Esterase Negative Urine RBC >50 H Urine WBC Ur Epithelial Cells Not Applicable Urine Crystals Not Applicable Urine Bacteria Urine Mucus Not Applicable Ur Culture Indicated? Yes Urine Glucose Negative COVID-19 Source Nasal/Nares SARS-CoV-2 (PCR) Negative 11/23/20 11/23/20 06:19 06:19 WBC 10.16 RBC 4.17 L Hgb 12.1 L Hct 36.9 L MCV 88.5 MCH 29.0 MCHC 32.8 RDW 13.8 Plt Count 247 MPV 10.8 Immature Gran % 0.2 Neutrophils % 53.8 Lymphocytes % 33.9 Monocytes % 10.8 Eosinophils % 1.0 Basophils % 0.3 Nucleated RBC % 0 Absolute Neutrophils 5.47 Absolute Lymphocytes 3.44 H Absolute Monocytes 1.10 H Absolute Eosinophils 0.10 Absolute Basophils 0.03 Sodium 135 L Potassium 3.7 Chloride 98 Carbon Dioxide 26.2 Anion Gap 10.8 BUN 19 H Creatinine 0.7 Estimated GFR/1.73 m2 >= 60.00 Glucose 107 H Calcium 9.3 Magnesium Total Bilirubin 0.9 AST 32 ALT 49 Alkaline Phosphatase 137 H Troponin I Total Protein 7.8 Albumin 2.6 L Lipase Urine Color Urine Clarity Urine pH Ur Specific [place] Urine Protein Urine Ketones Urine Blood Urine Nitrite Urine Bilirubin Urine Urobilinogen Ur Leukocyte Esterase Urine RBC Urine WBC Ur Epithelial Cells Urine Crystals Urine Bacteria Urine Mucus Ur Culture Indicated? Urine Glucose COVID-19 Source SARS-CoV-2 (PCR) Last Vital Signs Temp 97.5 F L 11/23/20 07:39 Pulse 94 H 11/23/20 07:39 Resp 17 11/23/20 07:39 BP 124/88 11/23/20 07:39 Pulse Ox 97 11/23/20 07:39
[2020-11-23] MEDS: HYDROmorphone 2 MG/ML VIAL IVP (09:13)
[2020-11-23] MEDS: LORazepam 2 MG/ML VIAL IV/SC (09:39)
--- NOTE | 2020-11-23 11:33 | PDOC.CMIN ---
- If Service Date Differs Date of service: 11/23/20 Time of Service: 11:33 Care Management Initial Assess REASON FOR HOSPITALIZATION:: Intractible pain, metastatic neoplasm PAST MEDICAL HISTORY/PAST SURGICAL HISTORY:: Medical History. Lung cancer. Metastatic disease. lungs, LN, pancreas, adrenal, renal, bone. Sheltered homelessness. [facility]. Surgical History. No significant past surgical history PREVIOUS FUNCTIONAL STATUS/SOCIAL/FAMILY SUPPORTS:: Myke lives in [facility], at the [facility], where he is being sheltered currently. His girlfriend, Keisha lives there as well with their two year old child. He also has an adult son, Dante. He is close with his brother, Troy, as well. Myke has missed several appointments due to social determinants, such as homelessness, no transportation, unreliable phone service. He is independent at baseline with ADL's. CURRENT FUNCTIONAL STATUS:: Myke was talking on his phone (facetime) with a family member when CM met with him. He was having difficulty remaining awake, per RN, had recently received pain medication. He was admitted with severe, intractible pain due to his metastatic cancer. CM was unable to reach his girlfriend, Keisha, but Myke reached her on his phone while CM was in the room. CM explained the visitation, and she was named by Myke as one of his two consistant visitors. He has not chosen his second visitor, as his son Dante is not able to travel to see him. Myke met with the Hospice provider this morning, and made the choice to be DNR/DNI, and to transition to comfort measures. He will likely remain at [facility] for end of life care. CM met with Keisha and Myke later, and asked the provider to talk over facetime with Myke's sisters. Myke's family lives in [place] and was hoping to travel to [place] and bring Myke home with them. The provider discussed his condition and prognosis, and told them that he will likely pass in the next 24-48 hours. It would be too difficult to move him, as his pain would not be able to be controlled in a long car ride. CM will continue to follow. ADVANCE DIRECTIVES:: Not on file. Hospice provider discussed code status with him today. Has patient been provided with info about the portal/API?: Yes Did the patient sign up for the portal?: Yes (active) CODE STATUS:: DNR/DNI INSURANCE COVERAGE / FINANCIAL ISSUES:: [employer] CURRENT HOME/COMMUNITY SERVICES/EQUIPMENT:: Palliative care follows him outpatient. PRIMARY CARE PHYSICIAN:: Myles Soriano POTENTIAL DISCHARGE NEEDS:: Myke will likely remain at [facility] for end of life care. PATIENT/FAMILY EDUCATION NEEDS:: Support Myke and his family, expectations of end of life care. ANTICIPATED BARRIERS TO DISCHARGE:: none identified. PLAN:: Myke has transitioned to comfort measures, and will likely remain at [facility] for end of life care. He has identified one of his consistant visitors as Keisha Mcmahan. CM has notified the RN supervisor molding of this visitor. CM will support Myke and his family during this difficult time.
--- NOTE | 2020-11-23 14:42 | W.PM.PROGNOT ---
Date of Service Date of service: 11/23/20 Time of Service: 14:42 Assessment and Plan Assessment and plan (1) Comfort measures only status: Start date: 11/23/20 Start time: 15:05 Status: Acute Assessment and plan: He has decided to go comfort after speaking with Dr. Rey. He is on a hydromorphine drip. He is in pain he is now up to 8 mg. He also has a scab to the back of his head likely a cancer lesion. Will place voltaren gel on it. He is actively dying. Will likely pass in the next 24-48 hours. He is in and out of responsiveness. Girlfriend at bedside. continue to monitor. Place ewing when patient less responsive. (2) Bone metastasis: Start date: 11/23/20 Start time: 15:09 Status: Acute Assessment and plan: Lung ca with liver ca, and bone mets, just found out in October, he is now [employer] as above. discussed with Dr. Marie Subjective Subjective Patient reports: other Interval history since last seen: Patient met with Dr. Rey this morning and has decided to go towards end of life, he has severe metastatic disease to every where. At this time, he is actively dying. Hydromorphine drip started, He also has a lump to the back of his head which is likely cancer as per his girlfriend it bleeds. Will add voltaren to back of his head. increase drip as patient is in pain. Spoke with family about prognosis as they wanted to take him to [place] he has been down playing his prognosis. he is no t comfortable at this time so drip is being increased. he is in and out of responsiveness. Continue to monitor. Exam Narrative Exam Narrative: Patient in and out of responsiveness. Breathing nonlabored. HR RRR. No signs of distress. Does appear uncomfortable. Titrate drip up. He is now on comfort measures. Will place ewing per patients request when he becomes more unresponsive. Girlfriend at bedside. Patient appears to be actively dying will continue to monitor. Objective Last Vital Signs Temp 36.4 C L 11/23/20 07:39 Pulse 94 H 11/23/20 07:39 Resp 17 11/23/20 07:39 BP 124/88 11/23/20 07:39 Pulse Ox 97 11/23/20 07:39 Laboratory Results - last 24 hr 11/22/20 11/22/20 11/22/20 19:00 19:00 19:00 WBC 12.41 H RBC 4.40 Hgb 12.9 L Hct 39.4 L MCV 89.5 MCH 29.3 MCHC 32.7 RDW 13.4 Plt Count 255 MPV 10.9 Immature Gran % 0.3 Neutrophils % 64.6 Lymphocytes % 27.2 Monocytes % 7.5 Eosinophils % 0.2 Basophils % 0.2 Nucleated RBC % 0 Absolute Neutrophils 8.02 H Absolute Lymphocytes 3.38 Absolute Monocytes 0.93 H Absolute Eosinophils 0.02 Absolute Basophils 0.02 Sodium 137 Potassium 3.5 Chloride 95 L Carbon Dioxide 30.2 Anion Gap 11.8 H BUN 21 H Creatinine 1.0 Estimated GFR/1.73 m2 >= 60.00 Glucose 110 H Calcium 10.3 H Magnesium 1.8 Total Bilirubin 1.1 H AST 42 H ALT 59 Alkaline Phosphatase 165 H Troponin I < 0.05 Total Protein 8.7 H Albumin 2.9 L Lipase 40 Urine Color Urine Clarity Urine pH Ur Specific [place] Urine Protein Urine Ketones Urine Blood Urine Nitrite Urine Bilirubin Urine Urobilinogen Ur Leukocyte Esterase Urine RBC Urine WBC Ur Epithelial Cells Urine Crystals Urine Bacteria Urine Mucus Ur Culture Indicated? Urine Glucose COVID-19 Source SARS-CoV-2 (PCR) 11/22/20 11/22/20 11/22/20 22:09 22:25 23:34 WBC RBC Hgb Hct MCV MCH MCHC RDW Plt Count MPV Immature Gran % Neutrophils % Lymphocytes % Monocytes % Eosinophils % Basophils % Nucleated RBC % Absolute Neutrophils Absolute Lymphocytes Absolute Monocytes Absolute Eosinophils Absolute Basophils Sodium Potassium Chloride Carbon Dioxide Anion Gap BUN Creatinine Estimated GFR/1.73 m2 Glucose Calcium Magnesium Total Bilirubin AST ALT Alkaline Phosphatase Troponin I Cancelled Total Protein Albumin Lipase Urine Color Red Urine Clarity Cloudy Urine pH 7.0 Ur Specific [place] 1.015 Urine Protein 100 H Urine Ketones 80 H Urine Blood Large H Urine Nitrite Positive H Urine Bilirubin Moderate H Urine Urobilinogen >=8.0 Ur Leukocyte Esterase Negative Urine RBC >50 H Urine WBC Ur Epithelial Cells Not Applicable Urine Crystals Not Applicable Urine Bacteria Urine Mucus Not Applicable Ur Culture Indicated? Yes Urine Glucose Negative COVID-19 Source Nasal/Nares SARS-CoV-2 (PCR) Negative 10/17/21 10/17/21 06:19 06:19 WBC 10.16 RBC 4.17 L Hgb 12.1 L Hct 36.9 L MCV 88.5 MCH 29.0 MCHC 32.8 RDW 13.8 Plt Count 247 MPV 10.8 Immature Gran % 0.2 Neutrophils % 53.8 Lymphocytes % 33.9 Monocytes % 10.8 Eosinophils % 1.0 Basophils % 0.3 Nucleated RBC % 0 Absolute Neutrophils 5.47 Absolute Lymphocytes 3.44 H Absolute Monocytes 1.10 H Absolute Eosinophils 0.10 Absolute Basophils 0.03 Sodium 135 L Potassium 3.7 Chloride 98 Carbon Dioxide 26.2 Anion Gap 10.8 BUN 19 H Creatinine 0.7 Estimated GFR/1.73 m2 >= 60.00 Glucose 107 H Calcium 9.3 Magnesium Total Bilirubin 0.9 AST 32 ALT 49 Alkaline Phosphatase 137 H Troponin I Total Protein 7.8 Albumin 2.6 L Lipase Urine Color Urine Clarity Urine pH Ur Specific [place] Urine Protein Urine Ketones Urine Blood Urine Nitrite Urine Bilirubin Urine Urobilinogen Ur Leukocyte Esterase Urine RBC Urine WBC Ur Epithelial Cells Urine Crystals Urine Bacteria Urine Mucus Ur Culture Indicated? Urine Glucose COVID-19 Source SARS-CoV-2 (PCR)
[2020-11-23] MEDS: Scopolamine 1 MG/3 DAYS PATCH TD (15:47)
[2020-11-23] MEDS: Diclofenac 1% Gel 100 GM TUBE TP ×2 (15:48→20:30)
[2020-11-23] MEDS: Ondansetron 4 MG/2 ML VIAL IVP (18:25)
[2020-11-24 07:31] LABS: HCT 38.7 % (40.0-50.0); HGB 12.6 g/dL (13.5-17.5); MCH 29.5 pg (27.0-33.0); MCHC 32.6 % (32.0-36.0); MCV 90.6 fL (80-95); MPV 10.9 fL (8.0-11.0); Platelet Count 251 10^3/uL (130-400); RBC 4.27 10^6/uL (4.36-5.78); RDW-SD 46.4 fL; WBC 13.45 10^3/uL (4.4-10.8)
[2020-11-24] MEDS: LORazepam 2 MG/ML VIAL IV/SC ×3 (08:58→21:47)
[2020-11-24] MEDS: Normal Saline Flush 10 ML SYR IVP ×4 (08:58→21:48)
[2020-11-24] MEDS: Acetaminophen 500 MG TAB PO (09:02)
[2020-11-24] MEDS: Gabapentin 300 MG CAP PO ×3 (09:02→20:17)
[2020-11-24] MEDS: Diclofenac 1% Gel 100 GM TUBE TP ×4 (09:03→20:17)
--- NOTE | 2020-11-24 10:46 | W.PALPGNOTE ---
Date of service: 11/24/20 Time of Service: 10:20 Assessment and Plan Assessment and plan (1) History of pancreatic cancer: Status: Suspected Assessment and plan: Unclear whether a second primary or a met from the radiologist's reading. No severe abdominal pain at this time. Pain more centered in his skeleton. (2) Lung cancer metastatic to bone: Status: Chronic Assessment and plan: Diagnosed 3 months ago as a Stage IV cancer by imaging. Did not receive oncology care. He has transitioned to comfort-focused care. He will be returning to [facility] with hospice services. (3) Goals of care, counseling/discussion: Status: Acute Assessment and plan: He wants his pain controlled. He wants to see his son and his siblings and his aunt. He wants to see his his daughter and his mother. (4) Intractable pain: Status: Acute Assessment and plan: Improved with hydromorphone pump. Steroids added. Lorazepam helps. (5) Pancoast tumor of right lung: Status: Acute (6) Bone metastasis: Status: Acute (7) Pathological fracture of lumbosacral spine: Status: Acute Assessment and plan: At risk for paralysis, due to further erosion of his spine. (8) Weakness: Status: Acute (9) Unintentional weight loss: Status: Chronic (10) DNR (do not resuscitate): Status: Acute Assessment and plan: COLST completed today. (11) DNI (do not intubate): Status: Acute (12) Other incomplete lesion at T2-T6 level of thoracic spinal cord, initial encounter: Status: Acute Subjective Subjective Interval history since last seen: Myke is on comfort care at [facility] at this time for metastatic cancer with uncontrolled pain. His family is hoping to take him back home to the [facility] on hospice. He would like to get back to the [facility] so he can be with his family. He is looking forward to seeing his 2 yo daughter. He has been awake and alert. He was in pain while awake so his pump was increased and he was given one dose of ativan. He is on a hydromorphone drip, currently at 12mg/hr. He is eating and drinking, he is eating about 25% of his meals. He is sleeping in naps. We were able to complete a COLST form. He is a DNR/DNI, he has named Keisha Mcmahan to be his agent. Exam Narrative Exam Narrative: General: appears stated age, he is laying in bed with his head elevated. He is drowsy but awakens easily and answers questions. He is very pleasant. HEENT: normocephalic, atraumatic, EOMI, mucous membranes moist. Neck: supple, no JVD. Cardiovascular: heart sounds regular, nontachycardic. Respiratory: respirations appear even and unlabored, lung sounds are clear throughout. Coughing noted during visit. GI: +BS, abdomen soft, nontender, nondistended. Extremities: no edema, moves all 4 extremities freely. Objective Last Vital Signs Temp 36.4 C L 11/23/20 07:39 Pulse 94 H 11/23/20 07:39 Resp 17 11/23/20 07:39 BP 124/88 11/23/20 07:39 Pulse Ox 97 11/23/20 07:39 Laboratory Results - last 24 hr 11/24/20 06:55 WBC 13.45 H D RBC 4.27 L Hgb 12.6 L Hct 38.7 L MCV 90.6 MCH 29.5 MCHC 32.6 RDW 14.0 Plt Count 251 MPV 10.9
[2020-11-24] MEDS: methylPREDNISolone SUCC 125 MG VIAL 60 MG IVP ×2 (11:29→15:53)
--- NOTE | 2020-11-24 15:27 | TELEFU_ITS ---
Date of service: 11/24/20 Time of Service: 15:27 Nutritional Follow up NOTE: Acknowledge change in orders to comfort measures only. No aggressive nutrition intervention planned at this time. Luis Feranndez NDTR ? Cotton Weigher Time Spent in Nutritional Counseling and Treatment: 0
--- NOTE | 2020-11-24 18:02 | W.PM.PROGNOT ---
Date of Service Date of service: 11/24/20 Time of Service: 10:00 Assessment and Plan Assessment and plan (1) Comfort measures only status: Start date: 11/24/20 Start time: 10:00 Status: Acute Assessment and plan: On comfort measures. In and out responsiveness. Werner wants transfer however no medical reason, therefore he will be placed on CAD pump and discharged to [facility] in am to hospice. He continues to c/o pain. Initiated on solumedrol as well to help with bone pain Continue to monitor. (2) Bone metastasis: Start date: 11/24/20 Start time: 10:00 Status: Acute Assessment and plan: Lung ca with liver ca, and bone mets, just found out in October, he is now REIMBURSEMENT REPRESENTATIVE as above. discussed with Dr. Marie Subjective Subjective Patient reports: still having pain Interval history since last seen: Titrating drip up for pain. Patient has periods of lucidness. Family has arrived, they want patient transferred to [place]. The center is a hospital. Tried to discharge patient back to [facility] however hotel operations manager was very nasty and mean. Would not allow patient back, he swore at this provider stated that patient was not allowed back per demolition specialist however would not provide owners number. Then when told that it was illegal to withhold room from patient stated fuck you then you can clean come clean up the fucking mess and get the bill for the fucking room and hung up on the provider. Not willing to reason or listen to what provider or CM had to say regarding patient status as patient is dying and going on hospice. Plan is for patient to be discharged to [facility] tomorrow on hospice. Then maybe he can be transferred to [place] however at this time there is no reason for transfer to another center. Continue to monitor comfort. Exam Narrative Exam Narrative: Patient in and out of responsiveness. Breathing nonlabored. HR RRR. No signs of distress. Does appear uncomfortable. Titrate drip up. He is now on comfort measures. Will place ewing per patients request when he becomes more unresponsive. Girlfriend at bedside. Patient appears to be actively dying will continue to monitor. Objective Last Vital Signs Temp 36.4 C L 11/23/20 07:39 Pulse 94 H 11/23/20 07:39 Resp 17 11/23/20 07:39 BP 124/88 11/23/20 07:39 Pulse Ox 97 11/23/20 07:39 Laboratory Results - last 24 hr 11/24/20 06:55 WBC 13.45 H D RBC 4.27 L Hgb 12.6 L Hct 38.7 L MCV 90.6 MCH 29.5 MCHC 32.6 RDW 14.0 Plt Count 251 MPV 10.9
--- NOTE | 2020-11-24 20:03 | PDOC.CMPRO ---
- If Service Date Differs Date of service: 11/24/20 Time of Service: 20:03 Care Management Progress Note S/O: Myke remains at [facility] for end of life care, on comfort measures. CM made arrangements for Myke to return to the [facility] () today with Hospice support. Keisha, his girlfriend and health care agent, agreed to be his caregiver, as she also lives at the [facility] currently. CM called the to ask for a bed to be moved from his room in order to accommodate a hospital bed, and was met with hostility toward the situation, stating that Myke cannot return to the hotel on Hospice. CM called [employer] [facility] to inquire about Myke's rights as a current resident through the [employer] voucher program, and spoke to the Ice [employer]er of [employer], but unfortunately, is within their rights to refuse a patient/client. CM then met with several members of the community to work on alternate emergency housing, as Myke's family was visiting from [place], and they will not all be able to visit due to Covid restrictions. Temporary housing was found at a community home, an independent apartment that could be rented for one month from [place]. Funding was secured to meet this unique need, but unfortunately Myke's support system could not commit to providing 30/08 care. Myke's family from [place] continues to work on having him transported to a Hospice home in [place], [place]. CM advised that transport would not be covered by Hospice, or by [facility], as this is a non emergent transport. CM explained that he would not be accepted at an acute care facility, as he is end of life care. CM will facilitate a provider to provider call and/or referral to a facility, if the family can find a facility that is accepting patients near them for end of life care. CM will continue to support Myke and his family during this difficult time. A: Myke is a 45 year old male admitted to [facility] on 11/22/20 for intractable pain, metastatic neoplasm. P: Myke has transitioned to comfort measures, and will likely remain at [facility] for end of life care. He has identified his consistent visitors as Keisha Mcmahan and his brother, Troy. CM has notified the RN supervisory investigative specialist of these visitors. CM will support Myke and his family during this difficult time.
[2020-11-25] MEDS: Normal Saline Flush 10 ML SYR IVP ×4 (05:15→19:34)
[2020-11-25] MEDS: methylPREDNISolone SUCC 125 MG VIAL 60 MG IVP ×2 (06:14→19:34)
[2020-11-25] MEDS: Gabapentin 300 MG CAP PO ×3 (08:36→19:35)
[2020-11-25] MEDS: Diclofenac 1% Gel 100 GM TUBE TP ×3 (08:36→20:49)
--- NOTE | 2020-11-25 10:36 | CMPROGNOTE_ITS ---
- If Service Date Differs Date of service: 11/25/20 Time of Service: 13:05 Care Management Progress Note S/O: Myke remains at [facility] for end of life care, on comfort measures. CM met with Keisha and Myke and reviewed visitor policy, both acknowledged understanding limitations to visitors including unvaccinated and vaccinated- limit of two during regular visitor hours. CM will continue to support Myke and his family during this difficult time. A: Myke is a 45 year old male admitted to [facility] on 11/22/20 for intractable pain, metastatic neoplasm. P: Myke has transitioned to comfort measures, and will likely remain at [facility] for end of life care. He has identified his consistent visitors as Keisha Mcmahan and his brother, Troy. ANOOP has notified the RN cafeteria supervisor of these visitors. CM will support Myke and his family during this difficult time.
--- NOTE | 2020-11-25 10:36 | PDOC.CMPRO ---
- If Service Date Differs Date of service: 11/25/20 Time of Service: 13:05 Care Management Progress Note S/O: Myke remains at [facility] for end of life care, on comfort measures. CM met with Keisha and Myke and reviewed visitor policy, both acknowledged understanding limitations to visitors including unvaccinated and vaccinated-limit of two during regular visitor hours. CM will continue to support Myke and his family during this difficult time. A: Myke is a 45 year old male admitted to [facility] on 11/22/20 for intractable pain, metastatic neoplasm. P: Myke has transitioned to comfort measures, and will likely remain at [facility] for end of life care. He has identified his consistent visitors as Keisha Mcmahan and his brother, Troy. ANOOP has notified the RN slab conditioner supervisor of these visitors. CM will support Myke and his family during this difficult time.
[2020-11-25] MEDS: LORazepam 2 MG/ML VIAL IV/SC ×2 (11:10→16:49)
--- NOTE | 2020-11-25 15:08 | PGE_ITS ---
Date of Service Date of service: 11/25/20 Time of Service: 15:08 Assessment and Plan Assessment and plan (1) Comfort measures only status: Status: Acute Assessment and plan: On comfort measures. In and out responsiveness. Werner working on transfer home He continues to c/o pain. Initiated on solumedrol as well to help with bone pain Continue to monitor. adjust medications as needed for comfort (2) Bone metastasis: Status: Acute Assessment and plan: Lung ca with liver ca, and bone mets, just found out in October, he is now WELFARE WORKER as above. discussed with Dr. Marie Subjective Subjective Patient reports: still having pain and afebrile Exam Const Orientation: awake HENKY Head: normal to inspection Face and sinus: normal facial exam Eyes General: appearance normal, both eyes and all related structures Neck Neck: normal visual inspection Chest Chest: normal inspection of the chest Resp Effort & Inspection: normal respiratory effort Cardio Rate: regular rate Rhythm: regular rhythm GI Inspection: normal to inspection Palpation: soft Skin General skin exam: no rashes or lesions noted Neuro General: patient alert and patient awake Motor: muscle tone normal throughout Extrem General: normal to inspection, full ROM and no edema Objective Last Vital Signs Temp 36.4 C L 11/23/20 07:39 Pulse 94 H 11/23/20 07:39 Resp 17 11/23/20 07:39 BP 124/88 11/23/20 07:39 Pulse Ox 97 11/23/20 07:39
--- NOTE | 2020-11-25 16:52 | CHAPLAIN ---
I visited Myke this morning, while nursing staff was attending to him to make sure he's comfortable. Myke has metastatic cancer that involves his lungs and bones. He was living at the [facility] before being admitted. According to Dr. Rey's notes Myke missed several oncology appointments, including one on 11/17 so he has not received any treatment for his cancer. He has identified his girl friend Keisha and his brother Saul as his continued support people. Myke and Keisha are parents of a tow year old daughter. Myke also has an older son. Several of Myke's relatives from [place] visited yesterday. Attempts to get Myke back to the [facility], or to a private home for hospice care have not worked out for several reasons. He was admitted here for pain control and while having a Palliative Consult with Dr. Rey changed his code status to DNR/DNI. He has met with Dr. Church for palliative care four times, through tele visits. According to Dr. Rey's notes, Myke is now on comfort measures and likely to live a few more days. He told Dr. Rey he did not want a insurance verify rep visit, but I didn't read that until after I had visited with him. He was friendly and calm as I introduced myself, and was explaining to his nurses that he was jumpy. As Diane Whatley RN, explained she was giving Myke some ativan to help him rest, he said, how much are you making me rest? I don't want eternal rest, that's not for a couple of years. But according to Dr. Rey and Damaris Avila NP, notes, Myke is aware of his status of having stage IV cancer. I won't visit again unless requested.
[2020-11-25] MEDS: Calcium Carbonate *TUMS* 500 MG CHEW 1000 MG PO ×2 (18:49→20:45)
--- NOTE | 2020-11-25 23:25 | NUR.NOTE ---
This racebook writer was administering a scheduled IVP medication while the pt was video chatting with family. While I was focused on the patient and administration of the med, I became aware of the patients sister (recognized from the previous day during a visit) with a loud tone of voice. My back was toward the phone and I was surprised when I discovered that the caller was shouting at me and referring to me as white trash and a fuc dumb ass. The pt was wifty but he asked the caller to apologize to this racebook writer. The caller loosely apologized stating that, the nurse was going to kill him[the patient] with drugs . This racebook writer explained to the caller that I was focused on the patient and medication and I was not intentionally ignoring the caller, as my positioning may have implied. On a separate occasion, this racebook writer was in the room when the sister was on the phone suggesting to the patient that he signed the DNR/DNI directive when he was under drugs. The sister was suggesting to the patient to challenge the DNR/DNI order. This racebook writer left the room at that time and reported the two incidents to karla Reinoso
[2020-11-26] MEDS: Normal Saline Flush 10 ML SYR IVP ×6 (00:53→18:09)
[2020-11-26] MEDS: LORazepam 2 MG/ML VIAL IV/SC ×4 (00:53→10:33)
[2020-11-26] MEDS: methylPREDNISolone SUCC 125 MG VIAL 60 MG IVP ×2 (05:32→18:09)
[2020-11-26] MEDS: Calcium Carbonate *TUMS* 500 MG CHEW 1000 MG PO ×3 (06:45→22:13)
[2020-11-26] MEDS: Gabapentin 300 MG CAP PO ×3 (07:46→20:29)
[2020-11-26] MEDS: Docusate Sodium 100 MG CAP PO (07:46)
[2020-11-26] MEDS: Ondansetron 4 MG/2 ML VIAL IVP (07:57)
[2020-11-26] MEDS: Diclofenac 1% Gel 100 GM TUBE TP ×3 (10:17→20:25)
[2020-11-26] MEDS: Normal Saline 500 ML 30 ML IV (10:34)
--- NOTE | 2020-11-26 10:35 | PGE_ITS ---
Date of Service Date of service: 11/26/20 Time of Service: 10:35 Assessment and Plan Assessment and plan (1) Comfort measures only status: Status: Acute Assessment and plan: On comfort measures. In and out responsiveness. Werner working on transfer home He continues to c/o pain. Initiated on solumedrol as well to help with bone pain Continue to monitor. adjust medications as needed for comfort (2) Bone metastasis: Status: Acute Assessment and plan: Lung ca with liver ca, and bone mets, just found out in October, he is now QUALITY IMPROVEMENT SPECIALIST as above. discussed with Dr. Marie Subjective Subjective Patient reports: still having pain and afebrile Exam Const Orientation: awake HENMS Head: normal to inspection Face and sinus: normal facial exam Eyes General: appearance normal, both eyes and all related structures Neck Neck: normal visual inspection Chest Chest: normal inspection of the chest Resp Effort & Inspection: normal respiratory effort Cardio Rate: regular rate Rhythm: regular rhythm GI Inspection: normal to inspection Palpation: soft Skin General skin exam: no rashes or lesions noted Neuro General: patient alert and patient awake Motor: muscle tone normal throughout Extrem General: normal to inspection, full ROM and no edema Objective Last Vital Signs Temp 36.4 C L 11/23/20 07:39 Pulse 94 H 11/23/20 07:39 Resp 17 11/23/20 07:39 BP 124/88 11/23/20 07:39 Pulse Ox 97 11/23/20 07:39
--- NOTE | 2020-11-26 11:23 | CMPROGNOTE_ITS ---
- If Service Date Differs Date of service: 11/26/20 Time of Service: 11:23 Care Management Progress Note S/O: Myke was resting most of the day. When CM met with him, he was alert and engaged in conversation with CM. He stated that he is comfortable, with the exception of hiccups and the bump on his head. His RN was in the room, and was putting Voltaren gel on his bump. CM spoke to Keisha timmons, who stated that her visitation has been sparse today due to childcare. CM will continue to support Myke and his family. A: Myke is a 45 year old male admitted to [facility] on 11/22/20 for intractable pain, metastatic neoplasm. P: Myke has transitioned to comfort measures, and will likely remain at [facility] for end of life care. He has identified his consistent visitors as Keisha Mcmahan and his brother, Troy. CM has notified the RN supervisor tumblers of these visitors. CM will support Myke and his family during this difficult time.
[2020-11-26] MEDS: chlorproMAZINE 25 MG TAB PO (14:29)
[2020-11-27] MEDS: LORazepam 2 MG/ML VIAL IV/SC (00:14)
[2020-11-27] MEDS: methylPREDNISolone SUCC 125 MG VIAL 60 MG IVP ×2 (05:41→17:59)
[2020-11-27] MEDS: Normal Saline Flush 10 ML SYR IVP ×3 (05:41→20:07)
[2020-11-27] MEDS: Calcium Carbonate *TUMS* 500 MG CHEW 1000 MG PO (05:42)
[2020-11-27] MEDS: Docusate Sodium 100 MG CAP PO (05:42)
[2020-11-27] MEDS: Diclofenac 1% Gel 100 GM TUBE TP ×3 (09:20→20:07)
[2020-11-27] MEDS: Gabapentin 300 MG CAP PO ×2 (09:20→20:07)
[2020-11-27 09:28] VITALS: O2SAT 97
--- NOTE | 2020-11-27 15:48 | PCPN_ITS ---
Date of service: 11/27/20 Time of Service: 15:48 Assessment and Plan Assessment and plan (1) Pancoast tumor of right lung: Status: Acute (2) Bone metastasis: Status: Acute (3) History of pancreatic cancer: Status: Suspected (4) Pathological fracture of lumbosacral spine: Status: Acute (5) Unintentional weight loss: Status: Chronic (6) Weakness: Status: Acute (7) Goals of care, counseling/discussion: Status: Acute (8) Comfort measures only status: Status: Acute Assessment and plan: Myke's pain is well controlled with hydropmorphone drip at 12 mg/hr. He is stating that he wants to leave the hospital and go back to [place] with his family. He will need to transition off the drip if he is going to be transported via private vehicle, however, he is on a high dose and this will be difficult. He may need to begin to taper the hydromorphone to see if he can tolerate a decreased dose. The ride will likely be very difficult and uncomfortable for him. He revealed today that his pain was out of control on admission because he was sharing his morphine with his significant other, Keisha. Diversion is a concern. He is not able to go back to the [facility] at this point, they have placed an eviction notice on his door. He does not have a good discharge plan at this point. He may need to stay in the hospital. His cancer is extensive and progressing quickly. Care Management is working on a discharge plan. Palliative will continue to follow along. Subjective Subjective Interval history since last seen: Myke was seen in follow up today. The plan was for him to go back to the [facility] with the support of hospice services. He lives at the [facility] on a [place] state voucher due to being homeless. However, the [facility] refused to let him return and placed an eviction notice on his door. Next, ANOOP was working on a plan for him to go to an apartment in [place] with financial support. However, after Keisha discovered that she would lose her voucher for the [facility] if she did not return at night, she decided that she was no longer able to be his caregiver on hospice at the apartment. He has since decided to return to [place] with his family. He is currently on a dilaudid pump at 12 mcg/hr. He will need to transition off the pump for the transport via private vehicle, however, his dose is high and it will likely be difficult to make the transition. Despite the high dose of hydromorphone, he is awake and alert. He is eating and drinking. He is requesting ensure supplements. He revealed today that he was in severe pain at the time of his presentation to the ED because he in fact ran out of his oral morphine because he was sharing it with his significant other, Keisha. Exam Narrative Exam Narrative: General: appears stated age, he is laying in bed with his head elevated. He is awake and alert, pleasant and talkative. HEENT: normocephalic, atraumatic, EOMI, mucous membranes moist. Neck: supple, no JVD. Cardiovascular: heart sounds regular, nontachycardic. Respiratory: respirations appear even and unlabored, lung sounds are clear throughout. GI: +BS, abdomen soft, nontender, nondistended. Extremities: no edema, moves all 4 extremities freely. Objective Last Vital Signs Temp 36.4 C L 11/23/20 07:39 Pulse 94 H 11/23/20 07:39 Resp 17 11/23/20 07:39 BP 124/88 11/23/20 07:39 Pulse Ox 97 11/27/20 09:28
--- NOTE | 2020-11-27 18:36 | CMPROGNOTE_ITS ---
- If Service Date Differs Date of service: 11/27/20 Time of Service: 18:36 Care Management Progress Note S/O: Myke was sitting up in bed when CM met with him. Today he was alert and oriented, and ready to make a plan for his discharge. He stated that he does not recall most of the events of the past few days. He reported that he does not want to remain at [facility] for his end of life care, as he is not able to visit with family. After a lengthy conversation, Myke decided that he does want to return to [place] with his family. ANOOP discussed this with Damaris, Palliative care, who stated that he can be transitioned to a combination of fentanyl patches and oral medications in order for him to be able to travel in a private vehicle to [place]. CM asked Myke and his family to identify a Hospice group near the home that he will travel to, in order for us to send a referral and coordinate his admission. Myke will be staying with his cousin, Chani Albright, ([address] [place] [id number]; [phone]). Troy, Myke's older brother, will be transporting him home. Heather, his aunt, is also willing to help make a safe plan for Myke to return to his family in [place]. CM will continue to follow. A: Myke is a 45 year old male admitted to [facility] on 11/22/20 for intractable pain, metastatic neoplasm. P: Myke has transitioned to comfort measures, and will likely remain at [facility] for end of life care. He has identified his consistent visitors as Keisha Mcmahan and his brother, Troy. ANOOP has notified the RN supervisor alum plant of these visitors. CM will support Myke and his family during this difficult time.
--- NOTE | 2020-11-27 20:21 | W.PM.HP.N ---
Date of service: 11/27/20 [facility] Medical History (Updated 11/23/20 @ 19:38 by Sonia Rey MD) Comfort measures only status DNI (do not intubate) DNR (do not resuscitate) Encounter for hospice care discussion Goals of care, counseling/discussion History of pancreatic cancer enlarging pancreatic mass Lung cancer Metastatic disease lungs, LN, pancreas, adrenal, renal, bone Pancoast tumor of right lung Pathological fracture of lumbosacral spine [facility] Social isolation family in [place] they have been contacted; will try to come Unintentional weight loss Weakness Surgical History No significant past surgical history Family History (Updated 11/23/20 @ 19:19 by Sonia Rey MD) Brother Obesity Aunt No problems noted. Son Age: 23 No problems noted. Daughter Age: 2y 9m No problems noted. Social History (Updated 11/23/20 @ 19:23 by Sonia Rey MD) Smoking/Tobacco Use Status: Former Tobacco Use Quit Date: 10/10/20 Tobacco: How many years used: 30 Smoking risk assessment performed?: Yes Alcohol Intake: former Drug use: Daily Substance use type: marijuana Caregiver/Support person: No Household members: none Housing: other Details: lives in [facility] as part of homeless support program via [facility] Number of Children: 2 Communication Needs: None Education Level: high school Do you need help understanding health information?: Always current occupation: unable to work Current gender identity: male How often do you talk on the phone with friends or family?: twice per week How often do you get together with friends or relatives?: twice per week Panel score (0-1 are the most socially isolated patients): 1 What type of physical activity do you participate in: none and sedentary lifestyle Frequency: does not exercise Rowan/Anabaptism: Congregational Special rowan needs: No Seatbelt use: always Working smoke detector in home: Yes Fire extinguisher in home: Yes Do you feel safe at home: Yes Do you feel safe in your relationship?: Yes Additional Social history: Myke has not seen oncology; apparently he has missed a few appointments with them, most recently one scheduled for 11/17. He has seen or talked with Dr Church via telehealth for a total of 4 visits. He has widespread cancer, with mets throughout multiple organs and bones. He was admitted this time for intractable pain. We could not reach Keisha, the mother of his daughter, to see if she would be able to care for him at [facility]. It seems unlikely that she can. We talked to his older brother, Saul, known as Fat Boy, who will try to rally his family in [place] and arrange for them to visit [facility]. Meds Allergies and Home Medications Allergies Allergy/AdvReac Type Severity Reaction Status Date / Time No Known Allergies Allergy Unverified 11/22/20 18:58 Home Medications Medication Instructions Recorded Confirmed Type enoxaparin [Lovenox] 80 mg SUBCUT BID 10/12/20 11/22/20 History Narcan 4 mg INTRANASAL Q2M PRN #2 ea 10/14/20 11/22/20 Rx gabapentin 300 mg capsule 300 mg PO TID #90 cap 11/12/20 11/22/20 Rx hydromorphone 2 mg tablet 2 mg PO Q4H PRN #45 tab MDD 7 11/19/20 11/22/20 Rx morphine 60 mg tablet,extended 60 mg PO Q12H #14 tab MDD 120 11/19/20 11/22/20 Rx release Results Labs Result diagrams: 11/24/20 06:55 11/23/20 06:19 Last Vital Signs Temp 36.4 C L 11/23/20 07:39 Pulse 94 H 11/23/20 07:39 Resp 17 11/23/20 07:39 BP 124/88 11/23/20 07:39 Pulse Ox 97 11/27/20 09:28
[2020-11-28] MEDS: methylPREDNISolone SUCC 125 MG VIAL 60 MG IVP ×2 (05:55→17:45)
[2020-11-28] MEDS: Normal Saline Flush 10 ML SYR IVP ×2 (05:56→17:46)
--- NOTE | 2020-11-28 08:56 | PDOC.CMPRO ---
- If Service Date Differs Date of service: 11/28/20 Time of Service: 08:56 Care Management Progress Note S/O: Myke was sitting up in bed when CM met with him. Today he was alert and oriented X 3. Yesterday, CM asked Myke and his family to identify a Hospice group near the home that he will travel to, in order for CM to send a referral and coordinate his admission. Per provider Azra Granados, at this time Myke is no longer planning to stay with his cousin, Thien Albright, ([address] [place] [id number]; [phone]) and wants to remain at [facility] for end of life care and pain management. CM will continue to follow. A: Myke is a 45 year old male admitted to [facility] on 11/22/20 for intractable pain, metastatic neoplasm. P: Myke has transitioned to comfort measures, and will likely remain at [facility] for end of life care. Myke has identified his consistent visitors as Keisha Mcmahan and his brother, Troy. CM has notified the RN river crossing supervisor of these visitors. CM will support Myke and his family during this difficult time.
[2020-11-28] MEDS: Docusate Sodium 100 MG CAP PO ×2 (09:02→13:41)
[2020-11-28] MEDS: Milk of Magnesia 30 ML CUP PO ×2 (09:02→13:41)
[2020-11-28] MEDS: Diclofenac 1% Gel 100 GM TUBE TP ×3 (09:02→20:36)
[2020-11-28] MEDS: Polyethylene Glycol 3350 17 GM PACKET PO ×2 (09:02→13:41)
[2020-11-28] MEDS: Gabapentin 300 MG CAP PO ×3 (09:04→20:22)
--- NOTE | 2020-11-28 15:46 | W.PM.PROGNOT ---
Date of Service Date of service: 11/28/20 Time of Service: 15:46 Assessment and Plan Assessment and plan (1) Comfort measures only status: Start date: 11/28/20 Start time: 17:33 Status: Acute Assessment and plan: On comfort measures, see note for details. Will likely stay for end of life care. Increased drip to 14 mg/hr (2) Bone metastasis: Start date: 11/28/20 Start time: 17:32 Status: Acute Assessment and plan: Lung ca with liver ca, and bone mets, just found out in October, he is now DIGITAL OPERATIONS ANALYST as above. discussed with Dr. Marie (3) History of pancreatic cancer: Start date: 11/28/20 Start time: 17:32 Status: Suspected Assessment and plan: Unclear whether a second primary or a met from the radiologist's reading. No severe abdominal pain at this time. Pain more centered in his skeleton. (4) Pathological fracture of lumbosacral spine: Start date: 11/28/20 Start time: 17:32 Status: Acute Assessment and plan: At risk for paralysis, due to further erosion of his spine. Subjective Subjective Patient reports: still having pain Interval history since last seen: Patient states he continues to have pain, required 5 bolus doses today increased drip to 14 mg/hr. Discussed that cancer has worsened since last scan and how much it would take to make him comfortable for the ride home. The amount of medication would be almost 6,000 mg/ 24 hours. After this information patient spoke with family. He is deciding at this point to stay, his son is coming up tomorrow. Damaris from palliative/hospice will see him tomorrow as well. Exam Const Orientation: awake [facility] Head: normal to inspection Face and sinus: normal facial exam Eyes General: appearance normal, both eyes and all related structures Neck Neck: normal visual inspection Chest Chest: normal inspection of the chest Resp Effort & Inspection: normal respiratory effort Cardio Rate: regular rate Rhythm: regular rhythm GI Inspection: normal to inspection Palpation: soft Skin General skin exam: no rashes or lesions noted Neuro General: patient alert and patient awake Motor: muscle tone normal throughout Extrem General: normal to inspection, full ROM and no edema Objective Last Vital Signs Temp 36.4 C L 11/23/20 07:39 Pulse 94 H 11/23/20 07:39 Resp 17 11/23/20 07:39 BP 124/88 11/23/20 07:39 Pulse Ox 97 11/27/20 09:28
[2020-11-28] MEDS: Calcium Carbonate *TUMS* 500 MG CHEW 1000 MG PO (17:59)
[2020-11-28] MEDS: Simethicone 80 MG CHEW 40 MG PO (22:18)
[2020-11-29] MEDS: Ondansetron 4 MG/2 ML VIAL IVP ×2 (00:08→22:07)
[2020-11-29] MEDS: methylPREDNISolone SUCC 125 MG VIAL 60 MG IVP ×2 (06:47→18:08)
[2020-11-29] MEDS: Gabapentin 300 MG CAP PO (08:16)
[2020-11-29] MEDS: Diclofenac 1% Gel 100 GM TUBE TP ×4 (08:16→20:34)
--- NOTE | 2020-11-29 11:18 | PCPN_ITS ---
Date of service: 11/29/20 Time of Service: 11:18 Assessment and Plan Assessment and plan (1) Pancoast tumor of right lung: Status: Acute (2) Bone metastasis: Status: Acute (3) History of pancreatic cancer: Status: Suspected (4) Pathological fracture of lumbosacral spine: Status: Acute (5) Unintentional weight loss: Status: Chronic (6) Weakness: Status: Acute (7) Goals of care, counseling/discussion: Status: Acute (8) Comfort measures only status: Status: Acute Assessment and plan: Myke's pain is under better control with hydropmorphone drip at 14 mg/hr. The hospitalist increased it yesterday. Lorazepam may be helpful to work synergistically with the hydromorphone. He has decided that it is best for him to stay at the hospital until he dies. This is after discussing the advancement of his disease in a very short time with swapnil Lynch NP. He is not able to go back to the [facility] at this point, they have placed an eviction notice on his door. He is eating and getting out of bed with standby guard. His son is scheduled to visit today. He was looking forward to seeing him. Palliative will continue to follow along. Subjective Subjective Interval history since last seen: Myke was seen in follow up for palliative care at the request of Swapnil Lynch NP. He has made the decision to stay at the hospital until he dies. He does not have a home to return to on hospice. He cannot go back to the [facility], where he has been living. There are many concerns about him returning to [place], his pain control in particular. He is comfortable at the hospital and feels he is getting good care. His hydromorphone pump is at 14 mg/hr, it was increased yesterday, his pain is under better control today. Discussed the role of lorazepam working synergistically with the hydromorphone, which helped Tuesday. He is still eating. He ate 50% of his breakfast this morning. He is able to get out of bed with standby guard. Exam Narrative Exam Narrative: General: appears stated age, he is laying in bed with his head elevated. He is awake, pleasant and talkative. He appears to be more fatigued today. He is thin. HEENT: normocephalic, atraumatic, EOMI, mucous membranes moist. Neck: supple, no JVD. Respiratory: respirations appear even and unlabored. Extremities: no edema, moves all 4 extremities freely. Objective Last Vital Signs Temp 36.4 C L 11/23/20 07:39 Pulse 94 H 11/23/20 07:39 Resp 17 11/23/20 07:39 BP 124/88 11/23/20 07:39 Pulse Ox 97 11/27/20 09:28
[2020-11-29] MEDS: Sucralfate 1 GM TAB PO ×2 (12:15→16:36)
[2020-11-29] MEDS: Scopolamine 1 MG/3 DAYS PATCH TD ×2 (13:46→23:35)
[2020-11-29] MEDS: Gabapentin 300 MG CAP 600 MG PO ×2 (13:46→20:11)
--- NOTE | 2020-11-29 16:16 | PGE_ITS ---
Date of Service Date of service: 11/29/20 Time of Service: 16:16 Assessment and Plan Assessment and plan (1) Comfort measures only status: Start date: 11/29/20 Start time: 12:55 Status: Acute Assessment and plan: On comfort measures, see note for details. Will likely stay for end of life care. he is comfortable at this time continue drip at current rate, increase if requiring to many boluses. Palliaitve following He has decided to stay here and end his life in the hospital (2) Bone metastasis: Start date: 11/29/20 Start time: 12:55 Status: Acute Assessment and plan: Lung ca with liver ca, and bone mets, just found out in October, he is now WAREHOUSE ADMINISTRATOR as above. (3) History of pancreatic cancer: Start date: 11/29/20 Start time: 12:55 Status: Suspected Assessment and plan: Unclear whether a second primary or a met from the radiologist's reading. No severe abdominal pain at this time. Pain more centered in his skeleton. (4) Pathological fracture of lumbosacral spine: Start date: 11/29/20 Start time: 12:55 Status: Acute Assessment and plan: At risk for paralysis, due to further erosion of his spine. discussed with Dr. Gtz Subjective Subjective Patient reports: other Interval history since last seen: Tired, states he did not sleep last night, pain is improved. heating pad helping. His son has arrived. he has been waiting for him, likely after seeing hiim he will start to deteriorate as he has a very aggressive cancer. He has decided to stay here on comfort and pass here. Exam Narrative Exam Narrative: Sleepy to today but comfortable. Const Orientation: awake [facility] Head: normal to inspection Face and sinus: normal facial exam Eyes General: appearance normal, both eyes and all related structures Neck Neck: normal visual inspection Chest Chest: normal inspection of the chest Resp Effort & Inspection: normal respiratory effort Cardio Rate: regular rate Rhythm: regular rhythm GI Inspection: normal to inspection Palpation: soft Skin General skin exam: no rashes or lesions noted Neuro General: patient alert and patient awake Motor: muscle tone normal throughout Extrem General: normal to inspection, full ROM and no edema Objective Last Vital Signs Temp 36.4 C L 11/23/20 07:39 Pulse 94 H 11/23/20 07:39 Resp 17 11/23/20 07:39 BP 124/88 11/23/20 07:39 Pulse Ox 97 11/27/20 09:28
--- NOTE | 2020-11-29 16:22 | PDOC.CMPRO ---
- If Service Date Differs Date of service: 11/29/20 Time of Service: 16:22 Care Management Progress Note S/O: Myke was sitting up in bed when CM met with him. He was alert and oriented X 3, smiling and joking with his visitors, ex- Vidhi and her . Both Myke and Vidhi requested that the second support person be changed from Troy, who has gone back to [place] and will not return, to Dante, Myke's son. Dante is his next of kin and will remain in [place] until Myke passes. Since Dante is not vaccinated, the only way Myke can see him is if he is the second designated support person. CM consulted with Shayan, his nurse, Reena the CC and Rachel the nursing bottoming room supervisor. All were in agreement with the change and the appropriate parties were notified. ANOOP clearly explained to the family that this cannot be changed again and that Dante and Keisha must remain the 2 designated support people. A: Myke is a 45 year old male admitted to [facility] on 11/22/20 for intractable pain, metastatic neoplasm. P: Myke has transitioned to comfort measures, and will likely remain at [facility] for end of life care. Myke has identified his consistent support visitors as Keisha Martir and his son Dante Dunbar. ANOOP has notified the RN bottoming room supervisor of these visitors. CM will support Myke and his family during this difficult time. cc:
[2020-11-29] MEDS: Senna TAB 1 TAB PO (20:11)
[2020-11-29] MEDS: Docusate Sodium 100 MG CAP PO (20:11)
[2020-11-29] MEDS: Normal Saline Flush 10 ML SYR IVP ×3 (20:11→22:59)
[2020-11-29] MEDS: Pantoprazole 40 MG TABCR PO (20:11)
[2020-11-29] MEDS: Calcium Carbonate *TUMS* 500 MG CHEW 1000 MG PO (22:07)
[2020-11-29] MEDS: LORazepam 2 MG/ML VIAL IV/SC (22:58)
--- NOTE | 2020-11-29 23:36 | NUR.NOTE ---
Nursing Note: Around 23:00 on 11/29, this RN went to answer patient call light. He was very upset about the IV in his right AC, which he had not previously reported any discomfort since it's placement. During conversation, he was fidgeting, restless, increased disorientation, falling asleep during conversation, and appearing amblyopic; none of these had been present since the patient's previous scopolamine patch was placed. After consulting [employer] and the Charge Nurse, this RN removed the scopolamine patch from behind the right ear due to concerns of adverse reactions. Will continue to monitor patient's comfort and change in mental status.
[2020-11-30] MEDS: Ondansetron 4 MG/2 ML VIAL IVP (03:05)
[2020-11-30] MEDS: Normal Saline Flush 10 ML SYR IVP ×4 (03:05→22:18)
[2020-11-30] MEDS: Normal Saline 500 ML 30 ML IV (03:06)
[2020-11-30] MEDS: methylPREDNISolone SUCC 125 MG VIAL 60 MG IVP ×3 (05:48→22:18)
[2020-11-30] MEDS: Sucralfate 1 GM TAB PO ×4 (07:59→22:18)
[2020-11-30] MEDS: Gabapentin 300 MG CAP 600 MG PO ×3 (07:59→19:43)
[2020-11-30] MEDS: Pantoprazole 40 MG TABCR PO ×2 (07:59→19:43)
--- NOTE | 2020-11-30 13:17 | PGE_ITS ---
Date of Service Date of service: 11/30/20 Time of Service: 10:40 Assessment and Plan Assessment and plan (1) Comfort measures only status: Start date: 11/30/20 Start time: 10:40 Status: Acute Assessment and plan: On comfort measures, see note for details. Has decided to stay for end of life care. he is comfortable and sleeping at this time continue drip at current rate, increase if requiring to many boluses. Palliative following l (2) Bone metastasis: Start date: 11/30/20 Start time: 10:40 Status: Acute Assessment and plan: Lung ca with liver ca, and bone mets, just found out in October, he is now ACCOUNT EXECUTIVE METALWORKING as above. (3) History of pancreatic cancer: Start date: 11/30/20 Start time: 10:40 Status: Suspected Assessment and plan: Unclear whether a second primary or a met from the radiologist's reading. No severe abdominal pain at this time. Pain more centered in his skeleton. (4) Pathological fracture of lumbosacral spine: Start date: 11/30/20 Start time: 10:40 Status: Acute Assessment and plan: At risk for paralysis, due to further erosion of his spine. discussed with Dr. Gtz Subjective Subjective Patient reports: feels better Interval history since last seen: patient sleeping, appears comfortable and not in any pain. Has decided to stay here and continue to control his pain and pass away peacefully. Exam Narrative Exam Narrative: patient sleeping, does not appear to be in any pain, non labored breathing, no grimacing. Appears peaceful. Will let patient sleep as he is comfortable. Objective Last Vital Signs Temp 36.4 C L 11/23/20 07:39 Pulse 94 H 11/23/20 07:39 Resp 17 11/23/20 07:39 BP 124/88 11/23/20 07:39 Pulse Ox 97 11/27/20 09:28
[2020-11-30] MEDS: Calcium Carbonate *TUMS* 500 MG CHEW 1000 MG PO (16:22)
[2020-11-30] MEDS: Diclofenac 1% Gel 100 GM TUBE TP (19:43)
[2020-12-01] MEDS: Normal Saline Flush 10 ML SYR IVP ×4 (06:01→22:37)
[2020-12-01] MEDS: methylPREDNISolone SUCC 125 MG VIAL 60 MG IVP ×3 (06:01→22:36)
--- NOTE | 2020-12-01 08:28 | PCPN_ITS ---
Date of service: 12/01/20 Time of Service: 08:28 Assessment and Plan Assessment and plan (1) Pathological fracture of lumbosacral spine: Status: Acute (2) Pancoast tumor of right lung: Status: Acute (3) History of pancreatic cancer: Status: Suspected (4) Lung cancer metastatic to bone: Status: Chronic (5) Palliative care patient: Status: Acute Assessment and plan: I did observe patient now for a considerable length of time. He was moving without pain. He states that his pain level is at 3 out of 10 although sometimes does escalate to 9 out of 10. He is lonely and wants to be able to go back to [place]. He knows he cannot go back to the hotel that he has been living in during the pandemic. He misses his friends and family, many whom are not vaccinated and cannot come into the hospital. 1 possibility for future care is to consider transition to oral methadone and transfer from hospice here to hospice in [place]. I think we could control his pain on oral methadone and that would allow for his family to pick him up and transfer him. I have read the notes, and have been involved in Cayetano's care prior to his hospitalization. Although he was in significant pain and weak when he first came in, he is not at the same place. He may have a rapid decline, but it would be nice if he would be able to be with his family and friends. From how he looks today he may have weeks to months to live. Again I recommend transition to oral methadone, starting him on hospice in [place], and transferring him to hospice in [place]. I will continue to see Myke. Subjective Subjective Interval history since last seen: Mark is well-known to me. I was his palliative doctor and in charge of his narcotics prior to him coming to the hospital. I did speak with to ER physicians and also Dr. Sonia Lin around the time of his admission. Cayetano is presently on a pump. He states that his pain is 3 some days and 9 other days. He states that today it is more at the 3 level. He really would like to get up and walk around. He states that his friends who live here are mostly unvaccinated and therefore cannot come to visit. He would like to go to [place] but was told that he could not go because of being on the pump. He knows he is going to and content that he knows the Lord and is ready to go on its time. He does not want a visit from the silk winding machine operator. Still he does not want to just sit in bed until he dies. He understands that his back is quite fragile and that a mild slip or even turn might result in paraplegia and increased pain Exam Narrative Exam Narrative: Cayetano was very talkative. He spent the first few minutes of our time together fluffing up his 3 pillows and putting on pillowcases, folding his bed, getting out of bed standing turning around etc. His heart was regular, breathing full, very talkative Objective Last Vital Signs Temp 97.5 F L 11/23/20 07:39 Pulse 94 H 11/23/20 07:39 Resp 17 11/23/20 07:39 BP 124/88 11/23/20 07:39 Pulse Ox 97 11/27/20 09:28 CT Scan 2020 [facility]ST: Pulmonary Arteries: No evidence of filling defect to suggest pulmonary emboli. Tracheobronchial tree: Patent where visualized. Mediastinum and Christen: There is unchanged mediastinal and hilar adenopathy. Pulmonary parenchyma: There is again seen a right apical mass causing destructive changes of adjacent ribs and thoracic vertebral bodies. There does appear to be extension into the upper thoracic spinal canal which may be causing central spinal canal stenosis. There is involvement of the right anterior abdominal wall musculature. It appears grossly unchanged compared to the prior examination. Centrilobular and paraseptal emphysematous changes are present in the lungs. No focal consolidating infiltrates. Pleura: No effusion or pneumothorax. Heart: The heart is not dilated. No coronary artery calcifications are seen. No pericardial effusion. Aorta: Thoracic aorta non-dilated. No dissection. Bones: There again seen destructive changes of multiple right and left ribs and the thoracic spine. Findings are consistent with metastatic disease.Since the prior examination, there has been increased involvement of the destructive changes of the bones, particularly in the upper thoracic spine. Soft tissues: Please see above. ABDOMEN: Liver: Normal density. There are stable tiny hypodensities in the liver. They are too small for further characterization. No new hepatic lesions are seen. Portal, Superior Mesenteric, and Splenic Veins: Unremarkable. Gallbladder and Biliary Tract: No radiodense calculus or dilation. Pancreas: There has been interval increase in size of the pancreatic head mass lesion currently measuring 5 x 4 cm. Previously this measured 3.5 cm. Spleen: Normal. Adrenals: The left adrenal mass is increased in size measuring 2.2 x 2.4 cm. This compares to 1.6 x 2.0 cm. Kidneys: Normal size, contour and axis. No radiodense stones or obstructive uropathy. There are several bilateral renal cysts present. There also new areas of decreased enhancement in the kidneys suspicious for renal infarcts or infection/inflammation. The renal arteries and renal veins appear unremarkable. Abdominal Aorta: Abdominal portion non-dilated. Mild atherosclerosis. Bowel: No obstruction or bowel wall thickening. No evidence of appendicitis. There is a large amount of stool throughout the colon suggesting constipation. Peritoneal Cavity: No ascites, collection or mesenteric inflammatory response. No free air. Lymph Nodes: Within normal limits. Bones: Within normal limits for the patient's age. Soft Tissues: Unremarkable. PELVIS: Bladder: Symmetric distention, no gross wall thickening. Reproductive Organs: Unremarkable as visualized. Lymph Nodes: Within normal limits. Bones: Within normal limits. IMPRESSION: 1. No evidence pulmonary embolism, thoracic aortic dissection or aneurysm. 2. Persistent large destructive right upper lobe chest mass with destructive involvement of the adjacent ribs and the thoracic spine. The osseous destruction has progressed since the prior examination. This is most marked in the upper thoracic spine where there is involvement of the central spinal canal resulting in central spinal canal stenosis. Cord compression cannot be excluded. MRI should be considered for further evaluation. Progressive metastatic disease. 3. Interval increase in size of the pancreatic head mass suspicious for primary pancreatic carcinoma. 4. Interval increase in size of the left adrenal mass suspicious for metastatic disease. 5. New areas of decreased enhancement of the kidneys bilaterally. Renal infarct or a renal inflammatory/infectious process (pyelonephritis) should be considered. Please correlate clinically.
[2020-12-01] MEDS: Diclofenac 1% Gel 100 GM TUBE TP ×4 (08:54→19:56)
[2020-12-01] MEDS: LORazepam 2 MG/1 ML Oral Concentrate PO (10:46)
[2020-12-01] MEDS: Methadone Liquid 10 MG/ML PO ×2 (13:00→19:55)
[2020-12-01] MEDS: Gabapentin 300 MG CAP 600 MG PO ×2 (14:04→19:55)
--- NOTE | 2020-12-01 14:07 | PGE_ITS ---
Date of Service Date of service: 12/01/20 Time of Service: 14:07 Assessment and Plan Assessment and plan (1) Pathological fracture of lumbosacral spine: Status: Acute Assessment and plan: At risk for paralysis, due to further erosion of his spine. patient pain controlled on Dilaudid drip, currently at 16 mg/hr, transitioning to oral for discharge, will start with methadone 10 mg po tid as recommended by pharmacy and palliative care provider. (2) Pancoast tumor of right lung: Status: Acute Assessment and plan: on comfort care (3) History of pancreatic cancer: Status: Suspected Assessment and plan: Unclear whether a second primary or a met from the radiologist's reading. No severe abdominal pain at this time. Pain more centered in his skeleton. 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 Did not receive oncology care. He has transitioned to comfort-focused care. (5) Discharge planning issues: Status: Acute Assessment and plan: case management has been following. patient wants to discharge to [place] to stay with family. We have been trying to place referral for hospice services in [place] but have not been successful. patient does not want to stay here any further and is requesting discharge. as we do not have outpatient follow established at this time, he would need to leave against advice, which he is agreeable to. We will transition him to oral pain medication and discharge him with hospice referral. discussed with Dr Gtz Subjective Subjective Patient reports: no new complaints, feels better, tolerating liquids well, voiding w/o difficulty and afebrile; denies shortness of breath Exam Const Orientation: awake [facility] Head: normal to inspection Face and sinus: normal facial exam Eyes General: appearance normal, both eyes and all related structures Neck Neck: normal visual inspection Chest Chest: normal inspection of the chest Resp Effort & Inspection: normal respiratory effort Cardio Rate: regular rate Rhythm: regular rhythm GI Inspection: normal to inspection Palpation: soft Skin General skin exam: no rashes or lesions noted Neuro General: patient alert and patient awake Motor: muscle tone normal throughout Extrem General: normal to inspection, full ROM and no edema Objective Last Vital Signs Temp 36.4 C L 11/23/20 07:39 Pulse 94 H 11/23/20 07:39 Resp 17 11/23/20 07:39 BP 124/88 11/23/20 07:39 Pulse Ox 97 11/27/20 09:28
[2020-12-01] MEDS: HYDROmorphone 2 MG TAB PO (14:13)
[2020-12-01] MEDS: LORazepam 2 MG/ML VIAL IV/SC (14:41)
[2020-12-01] MEDS: Sucralfate 1 GM TAB PO ×2 (16:38→22:37)
--- NOTE | 2020-12-01 16:57 | CMPROGNOTE_ITS ---
- If Service Date Differs Date of service: 12/01/20 Time of Service: 16:58 Care Management Progress Note S/O: Myke was sitting up in bed when CM met with him today. He reported that his wish is still to return to [place] where his family lives. CM spoke to his brother, Troy, and his sister in law, who reported that they have reached out to a local Hospice team, who stated that they cannot accept him with [facility]. They would like to come pick him up and bring him to a hospital in [place]. ANOOP stated that [facility] does not endorse this plan, as the recommendation is for Hospice support to be set up. CM offered to send a referral to Hospice in [place], which they declined. CM spoke to the provider, who agreed to change his medication regiment to oral medication in order for Myke to be transported to [place] by car, as he would like to go, knowing that it will be AMA. His medications were converted to oral toda y, and his brother, Troy, is scheduled to pick him up tomorrow at 2pm. CM will continue to follow. A: Myke is a 45 year old male admitted to [facility] on 11/22/20 for intractable pain, metastatic neoplasm. P: Myke has transitioned to comfort measures, and will likely remain at [facility] for end of life care. Myke has identified his consistent support visitors as Keisha Mcmahan and his son Dante Dunbar. ANOOP has notified the RN preload supervisor of these visitors. CM will support Myke and his family during this difficult time.
[2020-12-01] MEDS: Pantoprazole 40 MG TABCR PO (19:55)
[2020-12-01] MEDS: Docusate Sodium 100 MG CAP PO (19:55)
[2020-12-02] MEDS: HYDROmorphone 2 MG TAB PO ×2 (01:50→11:34)
[2020-12-02] MEDS: Acetaminophen 500 MG TAB PO (05:20)
[2020-12-02] MEDS: Normal Saline Flush 10 ML SYR IVP ×3 (05:20→16:39)
[2020-12-02] MEDS: methylPREDNISolone SUCC 125 MG VIAL 60 MG IVP ×2 (05:21→16:39)
[2020-12-02] MEDS: Methadone Liquid 10 MG/ML PO ×2 (07:48→16:38)
--- NOTE | 2020-12-02 10:50 | W.PM.DS.N ---
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 He was seen by Dr Sonia Rey as a hospice consult.. Dr Church (Palliative care provider) had seen Myke 4 times for palliative care since 10/14/20. He was diagnosed with lung cancer, Pancoast tumor of the right lung, by CT scan in August 2020. He has not received any treatment for his cancer, no chemo, no radiation, no immunotherapy. He was supposed to meet with Dr Arredondo, oncologist at [facility] on 11/17/20. He did not make that appointment. By imaging, Myke has stage IV cancer, widespread metastases, mostly to his bones causing extremely painful lytic lesions throughout his skeleton. He had been in excruciating pain and has not been out of pain since before August, he reports despite many outpatient medication adjustments. He was living at the [facility], as he is homeless. He has decided to transition to comfort measures only and on DNR/DNI status. He wishes to return to [place] to be closer to family. Case management has been working closely with Myke and the family on discharge planning. He has had his pain managed on dilaudid drip which as been transitioned to methadone for transport. we have not been able to successfully connect him with hospice in [place] and he has decided to leave against advice to return there regardless to be closely to family. we will provide him with a 2 day supply of medication to facilitate his travels. discharge discussed with Dr Gtz Discharge Data Discharge Date/Time-TO BE ENTERED AT DEPARTURE: 12/03/20 01:50 Discharge Comment: will be placed in the morgue until tomorr DS: Summary Time Spent with Patient providing and/or coordinating discharge services: Greater than 30 minutes Status at Discharge Functional status at discharge: independent ambulation Overall status at discharge: patient is not back to baseline Mental Status: mental status grossly normal Speech and Movement: speech and movement normal Mood: congruent mood Affect: normal affect Exam Psych Mental Status: mental status grossly normal Speech and Movement: speech and movement normal Mood: congruent mood Affect: normal affect DS: Data Vitals/I&O Vitals and I&O: Vital Signs Temperature 36.4 C L 11/23/20 07:39 Temperature Source Tympanic 11/23/20 07:39 Pulse 94 H 11/23/20 07:39 Pulse Rhythm Regular 11/22/20 23:16 Pulse 100 H 11/22/20 19:50 Respiratory Rate 17 11/23/20 07:39 Respiratory Effort Non-Labored 11/22/20 23:16 Respiratory Depth Normal 11/22/20 23:16 Respiratory Pattern Normal 11/22/20 23:16 Blood Pressure 124/88 11/23/20 07:39 Blood Pressure Mean 99 11/22/20 22:45 Blood Pressure Position Sitting 11/22/20 18:51 Pulse Oximetry 97 11/27/20 09:28 Oxygen Delivery Method Room Air 11/29/20 19:28 Oxygen Flow Rate 0 11/29/20 19:28 Pain Level 7 12/02/20 07:48 Comment 11/22/20 23:16 Intake & Output 12/01/20 12/01/20 12/02/20 11:59 23:59 11:59 Intake Total 280 / 560.8 280.8 / 560.8 110 / 110 Output Total 710 / 960 250 / 960 350 / 350 Balance -430 / -399.2 30.8 / -399.2 -240 / -240 Intake: IV 10 / 190.8 180.8 / 190.8 10 Oral 270 / 370 100 / 370 100 / 100 Output: Urine 710 / 960 250 / 960 300 / 300 Emesis 50 / 50 Other: Urine Color Yellow Yellow Yellow Urine Appearance Clear Clear Clear Urine Odor Normal None Normal Comment Voided x 1 to with the bedside urninal. Emesis Description Retching Undigested Food Voiding Methods Urinal Toilet Urinal PFSH Medical History (Updated 12/01/20 @ 14:10 by Dara Walter NP) Comfort measures only status DNI (do not intubate) DNR (do not resuscitate) Encounter for hospice care discussion Goals of care, counseling/discussion History of pancreatic cancer enlarging pancreatic mass Lung cancer Metastatic disease lungs, LN, pancreas, adrenal, renal, bone Pancoast tumor of right lung Pathological fracture of lumbosacral spine [facility] Social isolation family in [place] they have been contacted; will try to come Unintentional weight loss Weakness Surgical History No significant past surgical history Family History (Updated 11/23/20 @ 19:19 by Sonia Rey MD) Brother Obesity Aunt No problems noted. Son Age: 23 No problems noted. Daughter Age: 2y 9m No problems noted. Social History (Updated 11/23/20 @ 19:23 by Sonia Rey MD) Smoking/Tobacco Use Status: Former Tobacco Use Quit Date: 10/10/20 Tobacco: How many years used: 30 Smoking risk assessment performed?: Yes Alcohol Intake: former Drug use: Daily Substance use type: marijuana Caregiver/Support person: No Household members: none Housing: other Details: lives in [facility] as part of homeless support program via [facility] Number of Children: 2 Communication Needs: None Education Level: high school Do you need help understanding health information?: Always current occupation: unable to work Current gender identity: male How often do you talk on the phone with friends or family?: twice per week How often do you get together with friends or relatives?: twice per week Panel score (0-1 are the most socially isolated patients): 1 What type of physical activity do you participate in: none and sedentary lifestyle Frequency: does not exercise Rowan/Nondenominational: Mormonism Special rowan needs: No Seatbelt use: always Working smoke detector in home: Yes Fire extinguisher in home: Yes Do you feel safe at home: Yes Do you feel safe in your relationship?: Yes Additional Social history: Myke has not seen oncology; apparently he has missed a few appointments with them, most recently one scheduled for 11/17. He has seen or talked with Dr Church via telehealth for a total of 4 visits. He has widespread cancer, with mets throughout multiple organs and bones. He was admitted this time for intractable pain. We could not reach Keisha, the mother of his daughter, to see if she would be able to care for him at [facility]. It seems unlikely that she can. We talked to his older brother, Saul, known as Fat Boy, who will try to rally his family in [place] and arrange for them to visit [facility]. Documented by User: Danielle Gtz MD 12/02/20 17:06 Discharge Plan Disposition Patient Disposition: Discharge Details Reason For Visit: Intractible Pain,Metastatic Neoplasm Admit Date/Time: 11/24/20 20:37 Admit Provider: Lawrence Mayer Attending Provider: Lawrence Mayer Primary Care Provider: Myles Soriano [facility] Hospital Course Hospital Course: Myke is a 45 year old, recently diagnosed with pancoast tumor of the right lung who was followed outpatient by palliative, who presented to the ED with uncontrolled pain and a new paralysis-threatening pathologic spinal fracture. He was seen by Dr Sonia Rey as a hospice consult.. Dr Church (Palliative care provider) had seen Myke 4 times for palliative care since 10/14/20. He was diagnosed with lung cancer, Pancoast tumor of the right lung, by CT scan in August 2020. He has not received any treatment for his cancer, no chemo, no radiation, no immunotherapy. He was supposed to meet with Dr Arredondo, oncologist at [facility] on 11/17/20. He did not make that appointment. By imaging, Myke has stage IV cancer, widespread metastases, mostly to his bones causing extremely painful lytic lesions throughout his skeleton. He had been in excruciating pain and has not been out of pain since before August, he reports despite many outpatient medication adjustments. He was living at the [facility], as he is homeless. He has decided to transition to comfort measures only and on DNR/DNI status. He wishes to return to [place] to be closer to family. Case management has been working closely with Myke and the family on discharge planning. He has had his pain managed on dilaudid drip which as been transitioned to methadone for transport. we have not been able to successfully connect him with hospice in [place] and he has decided to leave against advice to return there regardless to be closely to family. we will provide him with a 2 day supply of medication to facilitate his travels. discharge discussed with Dr Gtz Discharge Data Discharge Date/Time-TO BE ENTERED AT DEPARTURE: 12/03/20 01:50 Discharge Comment: will be placed in the morgue until tomorr [facility] Medical History (Updated 12/01/20 @ 14:10 by Dara Walter NP) Comfort measures only status DNI (do not intubate) DNR (do not resuscitate) Encounter for hospice care discussion Goals of care, counseling/discussion History of pancreatic cancer enlarging pancreatic mass Lung cancer Metastatic disease lungs, LN, pancreas, adrenal, renal, bone Pancoast tumor of right lung Pathological fracture of lumbosacral spine [facility] Social isolation family in [place] they have been contacted; will try to come Unintentional weight loss Weakness Surgical History No significant past surgical history Family History (Updated 11/23/20 @ 19:19 by Sonia Rey MD) Brother Obesity Aunt No problems noted. Son Age: 23 No problems noted. Daughter Age: 2y 9m No problems noted. Social History (Updated 11/23/20 @ 19:23 by Sonia Rey MD) Smoking/Tobacco Use Status: Former Tobacco Use Quit Date: 10/10/20 Tobacco: How many years used: 30 Smoking risk assessment performed?: Yes Alcohol Intake: former Drug use: Daily Substance use type: marijuana Caregiver/Support person: No Household members: none Housing: other Details: lives in [facility] as part of homeless support program via state of [place] Number of Children: 2 Communication Needs: None Education Level: high school Do you need help understanding health information?: Always current occupation: unable to work Current gender identity: male How often do you talk on the phone with friends or family?: twice per week How often do you get together with friends or relatives?: twice per week Panel score (0-1 are the most socially isolated patients): 1 What type of physical activity do you participate in: none and sedentary lifestyle Frequency: does not exercise Rowan/Nondenominational: Mormonism Special rowan needs: No Seatbelt use: always Working smoke detector in home: Yes Fire extinguisher in home: Yes Do you feel safe at home: Yes Do you feel safe in your relationship?: Yes Additional Social history: Myke has not seen oncology; apparently he has missed a few appointments with them, most recently one scheduled for 11/17. He has seen or talked with Dr Church via telehealth for a total of 4 visits. He has widespread cancer, with mets throughout multiple organs and bones. He was admitted this time for intractable pain. We could not reach Keisha, the mother of his daughter, to see if she would be able to care for him at [facility]. It seems unlikely that she can. We talked to his older brother, Saul, known as Fat Boy, who will try to rally his family in [place] and arrange for them to visit [facility].
[2020-12-02] MEDS: Sucralfate 1 GM TAB PO (11:33)
[2020-12-02] MEDS: Gabapentin 300 MG CAP 600 MG PO (16:40)
--- NOTE | 2020-12-02 17:06 | W.PM.PROGNOT ---
Date of Service Date of service: 12/02/20 Time of Service: 17:06 Subjective Subjective Interval history since last seen: With the family member at bedside, Myke, who had just gotten back from the bathroom with an extreme shortness of breath and possibly nausea decided not go back to [place] and to at our hospital. His discharge is cancelled. Objective Last Vital Signs Temp 36.4 C L 11/23/20 07:39 Pulse 94 H 11/23/20 07:39 Resp 17 11/23/20 07:39 BP 124/88 11/23/20 07:39 Pulse Ox 97 11/27/20 09:28
[2020-12-02] MEDS: LORazepam 2 MG/ML VIAL IV/SC ×3 (17:09→21:35)
--- NOTE | 2020-12-02 18:25 | PDOC.CMPRO ---
- If Service Date Differs Date of service: 12/02/20 Time of Service: 18:25 Care Management Progress Note S/O: Myke was planning on returning to [place] with his family today. He was changed to oral medication yesterday in anticipation of the trip. He was sleeping most times that CM checked on him today, per RN, an effect of the change of medication. When his family arrived, Myke had his scheduled dose of medication, was dressed and had received his discharge instructions from his RN. Per report, he had an episode of extreme shortness of breath and nausea, and told MD that he no longer wants to make the trip to [place]. CM met with the family, who reported that they are not comfortable traveling with him in his current condition. Per MD, he will likely pass away on this admission. The family will remain for some time at his bedside. CM will continue to support Myke and his family. A: Myke is a 45 year old male admitted to [facility] on 11/22/20 for intractable pain, metastatic neoplasm. P: Myke has transitioned to comfort measures, and will likely remain at [facility] for end of life care. Today, his consistent support visitors are his brother Troy, and his aunt, Heather. ANOOP has notified the RN air traffic supervisor of these visitors. CM will support Myke and his family during this difficult time.
--- NOTE | 2020-12-02 20:20 | NUR.NOTE ---
This telegraphic typewriter mechanic and staff were summoned to the room of [facility] by a family member when another family member attempted to assist the patient to the bathroom. The patient was weak and the family member (brother) was unable to continue with the transfer. The brother placed the patient on the floor and called for assistance. The brother continued to support the patient until enough staff arrived to lift the patient into the wheelchair and transfer the patient back to bed. The patient was incontinent of bowel at the time. There were no apparent injuries to either alliance party. The patient is unable to speak clearly. The brother maintains he was trying to help him to the bathroom. CC aware. Patient is on comfort measures.
--- NOTE | 2020-12-03 01:51 | NUR.NOTE ---
LYDIA Dailey was informed of passing of his father @approximately 2315. son state he will call back tomorrow to confirm the home for his Dad.
--- NOTE | 2020-12-03 17:16 | W.PM.DDS ---
Documented by User: Dara Walter NP 12/03/20 18:53 Date of service: 12/02/20 Time of Service: 23:15 Discharge Sum: Prov Provider Consults: 11/22/20 22:00 Palliative Care Consult [CONS] Routine Consultation Status:: Follow-up needed Clarification:: Manage/follow per spec. Reason for consult:: Intractable pain with metastatic neoplasm 11/23/20 08:31 Office Services Clerk Consult [CONS] Routine Consultation Status:: Follow-up needed Clarification:: Manage/follow per spec. Reason for consult:: on comfort measures close to was hoping to beat it 11/24/20 11:20 Hospice Consult [CONS] Routine Consultation Status:: Follow-up needed Clarification:: Manage/follow per spec. Reason for consult:: follow up at home Discharge Sum: Diag Contributing Factors (1) Pathological fracture of lumbosacral spine: (2) Pancoast tumor of right lung: (3) Lung cancer metastatic to bone: Documented by User: Danielle Gtz MD 12/16/20 17:48 Discharge Sum: Summary Date and Time Admission Date: 11/22/2109/18/21 20:37 Date of : 12/02/20 Time of : 23:15 Summary Details: Myke was a 45 year old, recently diagnosed with pancoast tumor of the right lung who was followed outpatient by palliative care, who presented to the ED with uncontrolled pain and a new paralysis-threatening pathologic spinal fracture. He was admitted to [facility] hospitalist service on 11/22/20. He was seen by Dr Sonia Rey as a hospice consult. Dr Church (Palliative care provider) had seen Myke 4 times for palliative care since 10/14/20. He was diagnosed with lung cancer, Pancoast tumor of the right lung, by CT scan in August 2020. He had not received any treatment for his cancer (chemo/radiation/immunotherapy). He was supposed to meet with Dr Arredondo, oncologist at [facility] on 11/17/20. He did not make it to that appointment. By imaging, Myke has stage IV cancer, widespread metastases, mostly to his bones causing extremely painful lytic lesions throughout his skeleton. He had been in excruciating pain and has not been out of pain since before August, he reports despite many outpatient medication adjustments. He was living at the [facility], as he is homeless. He has decided to transition to comfort measures only and on DNR/DNI status. He wished to return to [place] to be closer to family. Case management was working closely with Myke and the family on discharge planning. He had his pain managed on dilaudid drip which as been transitioned to methadone for transport. We have not been able to successfully connect him with hospice in [place] and he has decided to leave against advice to return there regardless to be closely to family; however, ended up being unable to leave here and peacefully on 12/02/20 with family at bedside. At 23:15 he was apneic with no pulse. He was pronounced by nursing per protocol. Additional Data Confirmation of as documented by pronouncing clinician: no pulse, no respirations, no heart sounds and pupils fixed and dilated Family: at bedside Attending/PCP notified?: Yes Attending Physician: Lawrence Khan Was code activated?: No Autopsy requested?: No re examiner notified?: No Organ bank notified?: No Advance directives: Yes Hospice patient?: No
== END 2020-12-03 01:50 | disposition expired | DRG 948 ==
LOC: ER 22:58 → MS 23:00
PROVIDERS: Family Medicine; Physician Assistant; Admitting Provider Family Medicine; Emergency Provider Emergency Medicine; PCP Family Medicine; Visit Provider Family Medicine
DX: G89.3 Neoplasm related pain (acute) (chronic) (principal); C34.11 Malignant neoplasm of upper lobe, right bronchus or lung; Z51.5 Encounter for palliative care; C79.51 Secondary malignant neoplasm of bone; C78.89 Secondary malignant neoplasm of other digestive organs; C77.8 Secondary and unspecified malignant neoplasm of lymph nodes of multiple regions; C79.70 Secondary malignant neoplasm of unspecified adrenal gland; C79.00 Secondary malignant neoplasm of unspecified kidney and renal pelvis; M84.58XA Pathological fracture in neoplastic disease, other specified site, initial encounter for fracture; Z68.1 Body mass index [BMI] 19.9 or less, adult; Z87.891 Personal history of nicotine dependence; Z59.01 Sheltered homelessness; Z66 Do not resuscitate; R63.4 Abnormal weight loss
CPT/HCPCS: 36415; 71275; 74177; 80053; 83690; 85027; 87635; 93005; 96361; 96374; 96376; 99285; 81003; 81015; 83735; 84484; 85025; 87086; 93010; 99220; 99225; 99231; 99232; 99233; G0378; J1170; J1644; J2060; J2270; J2405; J2930; J3490; J7512